=== PATIENT | female | born 1965 | race African-American/Black ===

== ENCOUNTER 2017-10-16 20:35 | Inpatient (IN) ==
[2017-10-16] MEDS ORDERED: SODIUM CHLORIDE 0.9% 1,000 ML IV STA ×2 (21:07→23:22)
[2017-10-16 21:52] LABS: Basophils % 0.2 % (0.0-0.8); Hemoglobin 9.1 GM/DL (12.0-16.0); Immature Granulocytes % 0.6 %; Lymphocytes # 0.7 10*3/uL (1.4-4.0); Lymphocytes % 4.3 % (21.3-54.2); Mean Corpuscular HGB Conc 32.5 GM/DL (32-36); Mean Corpuscular Hemoglobin 30 PG (27-34); Mean Corpuscular Volume 92.7 FL (87-102); Mean Platelet Volume 9.4 FL (9.6-12.0); Monocytes # 0.9 10*3/uL (0.11-0.8); Monocytes % 5.6 % (1.7-12.7); Neutrophils # 14.9 10*3/uL (1.4-7.4); Neutrophils % 89.3 % (38.7-73.9); Platelet Count 193 T/CUMM (130-400); Red Blood Count 3.02 MC/CUMM (3.8-5.5); Red Cell Distribution Width 17.1 % (9.3-17.3); White Blood Count 16.7 T/CUMM (4-12)
[2017-10-16 22:13] LABS: Ammonia 23 UMOL/L (11-32)
[2017-10-16 22:29] LABS: Alanine Aminotransferase 42 U/L (13-56); Albumin 2.3 G/DL (3.4-5.0); Alkaline Phosphatase 65 U/L (45-117); Aspartate Amino Transferase 58 U/L (0-37); Blood Urea Nitrogen 28 MG/DL (7-18); CKMB % 1.1 %; Calcium 8.9 MG/DL (8.5-10.1); Glucose 248 MG/DL (74-106); Osmolality,Calculated 286.8 MOS/KG (273-304); Potassium 3.6 MMOL/L (3.5-5.1); Sodium 137 MMOL/L (136-145); Total Protein 7.9 G/DL (6.4-8.3); Troponin I < 0.015 NG/ML (0.00-0.045)
[2017-10-16 22:45] LABS: INR 1.1; Partial Thromboplastin Time 31.5 SECS (0-40)
[2017-10-16 22:47] LABS: Apearance,Urine Slightly Hazy (Clear); Bacteria,Urine Occasional /HPF (Few); Bilirubin,Urine Negative (Negative); Blood, Urine Large mg/dL (Negative); Glucose,Urine (UA) Negative (Negative); Ketones,Urine Negative (Negative); Mucus,Urine Occasional /LPF (Occasional); Nitrite,Urine Negative (Negative); Protein,Urine 100 MG/DL; RBC,Urine 17 /HPF (0-4); Squamous Epithelial Cell,Urine Occasional /HPF (0-10); Urine Color Yellow (Yellow); Urine Specific Gravity 1.014 (1.001-1.035); Urine Urobilinogen < 2.0 EU/DL (0.2-1.0); WBC,Urine 38 /HPF (0-6)
[2017-10-16 22:53] LABS: Barbiturates Screen,Urine Negative (Negative); Benzodiazepines Screen,Urine Negative (Negative); Cannabinoid Screen,Urine Negative (Negative); Opiate Screen,Urine Negative (Negative); Phencyclidine Screen,Urine Negative (Negative)
[2017-10-16] MEDS ORDERED: LEVOFLOXACIN INJ 750 MG in PREMIX 1 EACH IV STA (23:04)
[2017-10-16] MEDS ORDERED: GLUCAGON 1 MG VIAL IM PRN (23:45)
[2017-10-16] MEDS ORDERED: DEXTROSE 50% 25 GM/50 ML VIAL IV PRN (23:45)
[2017-10-16] MEDS ORDERED: ONDANSETRON 4 MG/2 ML VIAL IV PRN (23:45)
[2017-10-16] MEDS ORDERED: cefTRIAXone 500 MG in SYRINGE 1 EACH IV SCH (23:45)
[2017-10-16] MEDS ORDERED: ASPIRIN EC 81 MG TABLET PO PRN (23:50)
[2017-10-17] MEDS: SODIUM CHLORIDE 0.9% 1,000 ML IV SCH ×2 (01:29→11:31)
[2017-10-17] MEDS: traMADol 50 MG TABLET PO PRN (02:30)
[2017-10-17] MEDS: HEPARIN 5,000 UNIT/1 ML VIAL SUBCUT SCH ×3 (02:31→17:48)
[2017-10-17 07:22] LABS: Calcium 8.6 MG/DL (8.5-10.1); Osmolality,Calculated 278.7 MOS/KG (273-304); Potassium 3.7 MMOL/L (3.5-5.1); Thyroid Stimulating Hormone 0.55 uIU/ml (0.358-3.74); VLDL CHOLESTEROL 17.4 MG/DL
[2017-10-17] MEDS: INSULIN LISPRO 100 UNIT/ML SUBCUT SCH ×4 (07:37→20:40)
[2017-10-17 08:16] LABS: Basophils % 0.2 % (0.0-0.8); Hematocrit 22.7 VOL% (35.7-47.0); Immature Granulocytes % 0.5 %; Immature Granulocytes Absolute 0.06 #; Lymphocytes # 0.7 10*3/uL (1.4-4.0); Lymphocytes % 5.4 % (21.3-54.2); Mean Corpuscular Hemoglobin 30 PG (27-34); Mean Corpuscular Volume 91.2 FL (87-102); Mean Platelet Volume 8.9 FL (9.6-12.0); Monocytes # 0.8 10*3/uL (0.11-0.8); Monocytes % 6.7 % (1.7-12.7); Neutrophils # 10.6 10*3/uL (1.4-7.4); Neutrophils % 87.2 % (38.7-73.9); Platelet Count 174 T/CUMM (130-400); Red Blood Count 2.49 MC/CUMM (3.8-5.5); Red Cell Distribution Width 17.2 % (9.3-17.3); White Blood Count 12.2 T/CUMM (4-12)
[2017-10-17 08:18] LABS: Hemoglobin 7.5 GM/DL (12.0-16.0)
[2017-10-17] MEDS ORDERED: cefTRIAXone 500 MG in SYRINGE 1 EACH IV ONE (09:30)
[2017-10-17] MEDS ORDERED: MAGNESIUM SULF RIDER 4 GM in PREMIX 1 EACH IV ONE (09:30)
[2017-10-17] MEDS: PANTOPRAZOLE 40 MG TABLET PO SCH (10:01)
[2017-10-17] MEDS: CHOLECALCIFEROL 5,000 UNIT TABLET PO SCH (10:01)
[2017-10-17] MEDS: MEGESTROL 40 MG TABLET PO SCH ×2 (10:01→20:42)
[2017-10-17] MEDS: ASCORBIC ACID 500 MG TABLET PO SCH (10:01)
[2017-10-17] MEDS: oxyCODONE/ACETAMINOPHEN 5-325 MG TABLET PO PRN (10:06)
[2017-10-17] MEDS ORDERED: SODIUM CHLORIDE 0.9% 1,000 ML IV PRN (12:17)
[2017-10-17] MEDS: ACETAMINOPHEN 500 MG TABLET PO PRN (16:19)
[2017-10-17] MEDS ORDERED: IBUPROFEN 400 MG TABLET PO PRN (16:58)
[2017-10-17] MEDS: IBUPROFEN 400 MG TABLET PO PRN (17:47)
[2017-10-17] MEDS ORDERED: ALPRAZolam 0.25 MG TABLET PO PRN (21:00)
[2017-10-18] MEDS: SODIUM CHLORIDE 0.9% 1,000 ML IV SCH ×2 (01:15→09:16)
[2017-10-18] MEDS: HEPARIN 5,000 UNIT/1 ML VIAL SUBCUT SCH ×3 (01:19→16:34)
[2017-10-18] MEDS: ACETAMINOPHEN 500 MG TABLET PO PRN ×2 (03:42→14:12)
[2017-10-18 05:25] LABS: Basophils % 0.2 % (0.0-0.8); Eosinophils % 0.1 % (0.00-10.9); Hematocrit 25.8 VOL% (35.7-47.0); Hemoglobin 8.4 GM/DL (12.0-16.0); Immature Granulocytes % 0.5 %; Immature Granulocytes Absolute 0.06 #; Lymphocytes # 0.9 10*3/uL (1.4-4.0); Lymphocytes % 7.3 % (21.3-54.2); Mean Corpuscular HGB Conc 32.6 GM/DL (32-36); Mean Corpuscular Hemoglobin 30 PG (27-34); Mean Corpuscular Volume 92.1 FL (87-102); Mean Platelet Volume 9.6 FL (9.6-12.0); Monocytes # 0.9 10*3/uL (0.11-0.8); Monocytes % 7.3 % (1.7-12.7); Neutrophils # 10.4 10*3/uL (1.4-7.4); Neutrophils % 84.6 % (38.7-73.9); Platelet Count 172 T/CUMM (130-400); Red Cell Distribution Width 16.2 % (9.3-17.3); White Blood Count 12.3 T/CUMM (4-12)
[2017-10-18 06:10] LABS: Bilirubin,Total 0.6 MG/DL (0.2-1.0); Calcium 8.1 MG/DL (8.5-10.1); Osmolality,Calculated 280.4 MOS/KG (273-304); Potassium 3.3 MMOL/L (3.5-5.1)
[2017-10-18] MEDS ORDERED: MAGNESIUM SULF RIDER 2 GM in PREMIX 1 EACH IV PRN (08:26)
[2017-10-18] MEDS ORDERED: MAGNESIUM SULF RIDER 4 GM in PREMIX 1 EACH IV PRN (08:26)
[2017-10-18] MEDS ORDERED: MAGNESIUM CITRATE 300 ML BOTTLE PO ONE (09:00)
[2017-10-18] MEDS: cefTRIAXone 1,000 MG in SYRINGE 1 EACH IV SCH (09:02)
[2017-10-18] MEDS: PANTOPRAZOLE 40 MG TABLET PO SCH (09:04)
[2017-10-18] MEDS: MEGESTROL 40 MG TABLET PO SCH ×2 (09:04→20:37)
[2017-10-18] MEDS: MULTIVITAMIN (CENTRUM) TABLET PO SCH (09:04)
[2017-10-18] MEDS: POTASSIUM CHLORIDE 20 MEQ TABLET PO PRN ×3 (09:04→14:14)
[2017-10-18] MEDS: POLYETHYLENE GLYCOL POWDER 17 GM PACK PO SCH (09:05)
[2017-10-18] MEDS: CHOLECALCIFEROL 5,000 UNIT TABLET PO SCH (09:05)
[2017-10-18] MEDS: ASCORBIC ACID 500 MG TABLET PO SCH (09:05)
[2017-10-18] MEDS: INSULIN LISPRO 100 UNIT/ML SUBCUT SCH ×4 (09:05→20:40)
[2017-10-18] MEDS: DOCUSATE SODIUM 100 MG CAPSULE PO SCH ×2 (09:05→20:37)
[2017-10-18] MEDS: CLOTRIMAZOLE 1% CREAM 15 GM TUBE TOP SCH ×2 (11:33→20:40)
[2017-10-18] MEDS: IBUPROFEN 400 MG TABLET PO PRN (15:25)
[2017-10-18] MEDS: traMADol 50 MG TABLET PO PRN (18:06)
[2017-10-18 18:54] LABS: Hematocrit 26.3 VOL% (35.7-47.0); Hemoglobin 8.4 GM/DL (12.0-16.0)
[2017-10-19] MEDS: SODIUM CHLORIDE 0.9% 1,000 ML IV SCH ×2 (00:57→00:58)
[2017-10-19] MEDS: oxyCODONE/ACETAMINOPHEN 5-325 MG TABLET PO PRN ×2 (01:02→10:48)
[2017-10-19 05:19] LABS: Basophils % 0.2 % (0.0-0.8); Eosinophils % 0.3 % (0.00-10.9); Hemoglobin 8.5 GM/DL (12.0-16.0); Immature Granulocytes % 1.7 %; Lymphocytes % 8.3 % (21.3-54.2); Mean Corpuscular HGB Conc 32.7 GM/DL (32-36); Mean Corpuscular Hemoglobin 30 PG (27-34); Mean Corpuscular Volume 91.5 FL (87-102); Mean Platelet Volume 9.7 FL (9.6-12.0); Monocytes # 0.9 10*3/uL (0.11-0.8); Monocytes % 7.8 % (1.7-12.7); NRBC # 0.02 10*3/uL; Neutrophils # 9.5 10*3/uL (1.4-7.4); Neutrophils % 81.7 % (38.7-73.9); Platelet Count 192 T/CUMM (130-400); Red Blood Count 2.84 MC/CUMM (3.8-5.5); Red Cell Distribution Width 16.5 % (9.3-17.3); White Blood Count 11.6 T/CUMM (4-12)
[2017-10-19 05:53] LABS: Calcium 8.5 MG/DL (8.5-10.1); Osmolality,Calculated 276.5 MOS/KG (273-304); Potassium 3.9 MMOL/L (3.5-5.1)
[2017-10-19] MEDS: traMADol 50 MG TABLET PO PRN (05:58)
[2017-10-19] MEDS: ASCORBIC ACID 500 MG TABLET PO SCH (10:46)
[2017-10-19] MEDS: MEGESTROL 40 MG TABLET PO SCH (10:46)
[2017-10-19] MEDS: CHOLECALCIFEROL 5,000 UNIT TABLET PO SCH (10:46)
[2017-10-19] MEDS: cefTRIAXone 1,000 MG in SYRINGE 1 EACH IV SCH (10:46)
[2017-10-19] MEDS: PANTOPRAZOLE 40 MG TABLET PO SCH (10:46)
[2017-10-19] MEDS: CLOTRIMAZOLE 1% CREAM 15 GM TUBE TOP SCH (10:47)
[2017-10-19] MEDS: DOCUSATE SODIUM 100 MG CAPSULE PO SCH (10:47)
[2017-10-19] MEDS: MULTIVITAMIN (CENTRUM) TABLET PO SCH (10:47)
[2017-10-19] MEDS: INSULIN LISPRO 100 UNIT/ML SUBCUT SCH (10:48)
[2017-10-19] MEDS: POLYETHYLENE GLYCOL POWDER 17 GM PACK PO SCH (10:57)
[2017-10-19 11:56] VITALS: BP 120/68
[2017-10-19] MEDS: HEPARIN 5,000 UNIT/1 ML VIAL SUBCUT SCH (12:20)
[2017-10-20] MEDS ORDERED: FLUCONAZOLE 200 MG TABLET PO SCH (09:00)
[2017-10-20] MEDS ORDERED: cephALEXin 500 MG CAPSULE PO SCH (09:00)
== END 2017-10-19 12:57 | disposition home or self-care (01) | DRG 558 ==
LOC: N.ED 20:35 → SUATTDRO 23:45 → N.EDINP 23:45 → N.2E 10-17 00:30
PROVIDERS: ADMIT Internal Medicine; ATTEND Internal Medicine

== ENCOUNTER 2017-11-28 14:35 | Inpatient (IN) ==
[2017-11-28] MEDS ORDERED: SODIUM CHLORIDE 0.9% 1,000 ML IV STA ×2 (14:59→17:17)
[2017-11-28] MEDS ORDERED: MEROPENEM 1,000 MG in SODIUM CHLORIDE 0.9% 100 ML IV STA (16:28)
[2017-11-28 16:40] LABS: Basophils % 0.2 % (0.0-0.8); Hematocrit 26.3 VOL% (35.7-47.0); Hemoglobin 8.2 GM/DL (12.0-16.0); Immature Granulocytes % 1.1 %; Immature Granulocytes Absolute 0.25 #; Lymphocytes # 1.5 10*3/uL (1.4-4.0); Lymphocytes % 6.6 % (21.3-54.2); Mean Corpuscular HGB Conc 31.2 GM/DL (32-36); Mean Corpuscular Hemoglobin 30 PG (27-34); Monocytes # 1.4 10*3/uL (0.11-0.8); Monocytes % 6.2 % (1.7-12.7); Neutrophils # 19.1 10*3/uL (1.4-7.4); Neutrophils % 85.9 % (38.7-73.9); Platelet Count 361 T/CUMM (130-400); Red Blood Count 2.74 MC/CUMM (3.8-5.5); Red Cell Distribution Width 14.9 % (9.3-17.3); White Blood Count 22.3 T/CUMM (4-12)
[2017-11-28 16:49] LABS: INR 1.1; PT Patient Result 11.8 SECS; Partial Thromboplastin Time 33.6 SECS (0-40)
[2017-11-28 16:58] LABS: Amorphous Crystals,Urine Occasional /HPF (Few); Apearance,Urine CLOUDY (Clear); Bilirubin,Urine Negative (Negative); Blood, Urine Moderate mg/dL (Negative); Glucose,Urine (UA) Negative (Negative); Ketones,Urine Negative (Negative); Nitrite,Urine Negative (Negative); Protein,Urine 100 MG/DL; RBC,Urine 74 /HPF (0-4); Urine Color Amber (Yellow); Urine Specific Gravity 1.009 (1.001-1.035); Urine Urobilinogen < 2.0 EU/DL (0.2-1.0); WBC,Urine 103 /HPF (0-6)
[2017-11-28 16:59] LABS: Alanine Aminotransferase 40 U/L (13-56); Albumin 1.9 G/DL (3.4-5.0); Alkaline Phosphatase 88 U/L (45-117); Aspartate Amino Transferase 28 U/L (0-37); Bilirubin,Total < 0.39 MG/DL (0.2-1.0); Blood Urea Nitrogen 12 MG/DL (7-18); Calcium 8.6 MG/DL (8.5-10.1); Glucose 130 MG/DL (74-106); Lactic Acid 2.2 MMOL/L (0.4-2.0); Osmolality,Calculated 276.7 MOS/KG (273-304); Potassium 4.1 MMOL/L (3.5-5.1); Sodium 138 MMOL/L (136-145); Total Protein 8.2 G/DL (6.4-8.3)
[2017-11-28 17:05] LABS: Hypochromasia 1+; Lymphocytes 7 % (20-55); Platelet Estimate Adequate; Segmented Neutrophils 88 % (50-85); Total Cells Counted 100
[2017-11-28] MEDS ORDERED: SODIUM CHLORIDE 0.9% 1,000 ML IV ONE (18:02)
[2017-11-28] MEDS ORDERED: GLUCAGON 1 MG VIAL IM PRN (18:04)
[2017-11-28] MEDS ORDERED: ASPIRIN EC 81 MG TABLET PO PRN (18:04)
[2017-11-28] MEDS ORDERED: DEXTROSE 50% 25 GM/50 ML VIAL IV PRN (18:04)
[2017-11-28] MEDS ORDERED: ACETAMINOPHEN 325 MG TABLET PO ONE (19:31)
[2017-11-28] MEDS ORDERED: ACETAMINOPHEN 325 MG TABLET ONE (19:32)
[2017-11-28] MEDS: PIPERACILLIN/TAZOBACTAM 3,375 MG in SODIUM CHLORIDE 0.9% 100 ML IV SCH (22:41)
[2017-11-28] MEDS: SODIUM CHLORIDE 0.9% 1,000 ML IV SCH (22:41)
[2017-11-28] MEDS: oxyCODONE/ACETAMINOPHEN 5-325 MG TABLET PO PRN (22:42)
[2017-11-28] MEDS: ALPRAZolam 0.25 MG TABLET PO SCH (22:42)
[2017-11-28] MEDS: MEGESTROL 40 MG TABLET PO SCH (22:42)
[2017-11-28] MEDS: HEPARIN 5,000 UNIT/1 ML VIAL SUBCUT SCH (22:44)
[2017-11-28] MEDS ORDERED: INFLUENZA VIRUS VACCINE 0.5 ML SYRINGE IM ONE (23:35)
[2017-11-29] MEDS: ACETAMINOPHEN 500 MG TABLET PO SCH ×4 (00:18→20:46)
[2017-11-29] MEDS ORDERED: VANCOMYCIN INJ 1,500 MG in SODIUM CHLORIDE 0.9% 250 ML IV SCH (01:00)
[2017-11-29 05:04] LABS: Basophils # 0.1 10*3/uL (0.0-0.2); Basophils % 0.2 % (0.0-0.8); Hemoglobin 7.7 GM/DL (12.0-16.0); Immature Granulocytes % 1.1 %; Immature Granulocytes Absolute 0.25 #; Lymphocytes # 1.4 10*3/uL (1.4-4.0); Lymphocytes % 6.1 % (21.3-54.2); Mean Corpuscular HGB Conc 30.8 GM/DL (32-36); Mean Corpuscular Hemoglobin 30 PG (27-34); Mean Corpuscular Volume 96.9 FL (87-102); Mean Platelet Volume 9.3 FL (9.6-12.0); Monocytes # 1.1 10*3/uL (0.11-0.8); Monocytes % 4.7 % (1.7-12.7); Neutrophils # 19.7 10*3/uL (1.4-7.4); Neutrophils % 87.9 % (38.7-73.9); Platelet Count 353 T/CUMM (130-400); Red Blood Count 2.58 MC/CUMM (3.8-5.5); Red Cell Distribution Width 15.1 % (9.3-17.3); White Blood Count 22.4 T/CUMM (4-12)
[2017-11-29 05:32] LABS: Band Neutrophils 1 % (0-10); Hypochromasia 1+; Lymphocytes 8 % (20-55); Segmented Neutrophils 87 % (50-85); Total Cells Counted 100
[2017-11-29 05:33] LABS: Macrocytosis Slight
[2017-11-29 05:39] LABS: Calcium 8.5 MG/DL (8.5-10.1); Osmolality,Calculated 277.3 MOS/KG (273-304); Potassium 3.5 MMOL/L (3.5-5.1)
[2017-11-29] MEDS: HEPARIN 5,000 UNIT/1 ML VIAL SUBCUT SCH ×3 (05:41→20:46)
[2017-11-29] MEDS: oxyCODONE/ACETAMINOPHEN 5-325 MG TABLET PO PRN ×2 (05:41→12:57)
[2017-11-29] MEDS ORDERED: diphenhydrAMINE 50 MG/1 ML VIAL IV PRN ×2 (07:10→15:33)
[2017-11-29] MEDS ORDERED: FUROSEMIDE 20 MG/2 ML VIAL IV PRN (07:10)
[2017-11-29] MEDS ORDERED: ACETAMINOPHEN 325 MG TABLET PO PRN ×2 (07:10→15:33)
[2017-11-29] MEDS ORDERED: SODIUM CHLORIDE 0.9% 1,000 ML IV PRN (07:10)
[2017-11-29] MEDS: glyBURIDE 5 MG TABLET PO SCH ×3 (08:05→18:56)
[2017-11-29] MEDS: PANTOPRAZOLE 40 MG TABLET PO SCH (09:29)
[2017-11-29] MEDS: MULTIVITAMIN (CENTRUM) TABLET PO SCH (09:29)
[2017-11-29] MEDS: MEGESTROL 40 MG TABLET PO SCH ×2 (09:30→20:46)
[2017-11-29] MEDS: CHOLECALCIFEROL 5,000 UNIT TABLET PO SCH (09:30)
[2017-11-29] MEDS: ASCORBIC ACID 500 MG TABLET PO SCH (09:31)
[2017-11-29] MEDS: PIPERACILLIN/TAZOBACTAM 3,375 MG in SODIUM CHLORIDE 0.9% 100 ML IV SCH ×3 (09:33→20:52)
[2017-11-29] MEDS: SODIUM CHLORIDE 0.9% 1,000 ML IV SCH ×2 (14:38→19:33)
[2017-11-29] MEDS: VANCOMYCIN INJ 1,500 MG in SODIUM CHLORIDE 0.9% 500 ML IV SCH (14:53)
[2017-11-29] MEDS: ALPRAZolam 0.25 MG TABLET PO SCH (20:46)
[2017-11-30] MEDS: ACETAMINOPHEN 500 MG TABLET PO SCH ×4 (00:10→17:57)
[2017-11-30] MEDS: SODIUM CHLORIDE 0.9% 1,000 ML IV SCH ×3 (02:10→20:57)
[2017-11-30] MEDS: VANCOMYCIN INJ 1,500 MG in SODIUM CHLORIDE 0.9% 500 ML IV SCH ×2 (04:13→22:22)
[2017-11-30 05:13] LABS: Basophils % 0.2 % (0.0-0.8); Eosinophils % 0.2 % (0.00-10.9); Hematocrit 26.9 VOL% (35.7-47.0); Hemoglobin 8.5 GM/DL (12.0-16.0); Immature Granulocytes % 1.1 %; Immature Granulocytes Absolute 0.21 #; Lymphocytes # 1.3 10*3/uL (1.4-4.0); Lymphocytes % 6.9 % (21.3-54.2); Mean Corpuscular HGB Conc 31.6 GM/DL (32-36); Mean Corpuscular Hemoglobin 30 PG (27-34); Mean Corpuscular Volume 94.1 FL (87-102); Mean Platelet Volume 9.2 FL (9.6-12.0); Monocytes # 0.8 10*3/uL (0.11-0.8); Neutrophils # 16.8 10*3/uL (1.4-7.4); Neutrophils % 87.6 % (38.7-73.9); Platelet Count 289 T/CUMM (130-400); Red Blood Count 2.86 MC/CUMM (3.8-5.5); Red Cell Distribution Width 15.9 % (9.3-17.3); White Blood Count 19.2 T/CUMM (4-12)
[2017-11-30 05:33] LABS: Albumin 1.5 G/DL (3.4-5.0); Bilirubin,Total 0.4 MG/DL (0.2-1.0); Calcium 8.4 MG/DL (8.5-10.1); Osmolality,Calculated 275.5 MOS/KG (273-304); Potassium 3.5 MMOL/L (3.5-5.1); Total Protein 6.9 G/DL (6.4-8.3)
[2017-11-30 05:37] LABS: Eosinophils 1 % (0-10); Lymphocytes 7 % (20-55); Segmented Neutrophils 90 % (50-85); Total Cells Counted 100
[2017-11-30 05:38] LABS: Hypochromasia 1+; Platelet Estimate Normal
[2017-11-30 05:39] LABS: Polychromasia Few
[2017-11-30] MEDS: HEPARIN 5,000 UNIT/1 ML VIAL SUBCUT SCH ×3 (05:50→20:59)
[2017-11-30] MEDS: PIPERACILLIN/TAZOBACTAM 3,375 MG in SODIUM CHLORIDE 0.9% 100 ML IV SCH ×2 (09:43→17:58)
[2017-11-30] MEDS ORDERED: LOPERAMIDE 2 MG CAPSULE PO ONE (10:11)
[2017-11-30] MEDS: CHOLECALCIFEROL 5,000 UNIT TABLET PO SCH (10:30)
[2017-11-30] MEDS: glyBURIDE 5 MG TABLET PO SCH ×3 (10:30→16:11)
[2017-11-30] MEDS: PANTOPRAZOLE 40 MG TABLET PO SCH (10:31)
[2017-11-30] MEDS: MULTIVITAMIN (CENTRUM) TABLET PO SCH (10:31)
[2017-11-30] MEDS: ASCORBIC ACID 500 MG TABLET PO SCH (10:31)
[2017-11-30] MEDS: MEGESTROL 40 MG TABLET PO SCH ×3 (10:36→20:57)
[2017-11-30] MEDS: traMADol 50 MG TABLET PO PRN (13:33)
[2017-11-30] MEDS: CYCLOBENZAPRINE 10 MG TABLET PO SCH ×2 (16:11→20:55)
[2017-11-30] MEDS ORDERED: METHOCARBAMOL 500 MG TABLET PO SCH (17:00)
[2017-11-30] MEDS: ALPRAZolam 0.25 MG TABLET PO SCH (20:56)
[2017-12-01] MEDS: ACETAMINOPHEN 500 MG TABLET PO SCH ×4 (00:56→19:14)
[2017-12-01] MEDS: PIPERACILLIN/TAZOBACTAM 3,375 MG in SODIUM CHLORIDE 0.9% 100 ML IV SCH ×3 (02:33→20:23)
[2017-12-01] MEDS: HEPARIN 5,000 UNIT/1 ML VIAL SUBCUT SCH ×3 (05:01→20:24)
[2017-12-01 05:42] LABS: Basophils % 0.1 % (0.0-0.8); Hematocrit 26.9 VOL% (35.7-47.0); Hemoglobin 8.3 GM/DL (12.0-16.0); Immature Granulocytes % 1.1 %; Immature Granulocytes Absolute 0.23 #; Lymphocytes # 1.3 10*3/uL (1.4-4.0); Lymphocytes % 6.3 % (21.3-54.2); Mean Corpuscular HGB Conc 30.9 GM/DL (32-36); Mean Corpuscular Hemoglobin 29 PG (27-34); Mean Corpuscular Volume 95.4 FL (87-102); Mean Platelet Volume 9.3 FL (9.6-12.0); Monocytes # 0.9 10*3/uL (0.11-0.8); Monocytes % 4.5 % (1.7-12.7); Neutrophils # 17.9 10*3/uL (1.4-7.4); Platelet Count 286 T/CUMM (130-400); Red Blood Count 2.82 MC/CUMM (3.8-5.5); Red Cell Distribution Width 15.9 % (9.3-17.3); White Blood Count 20.4 T/CUMM (4-12)
[2017-12-01 06:07] LABS: Albumin 1.4 G/DL (3.4-5.0); Bilirubin,Total 0.4 MG/DL (0.2-1.0); Calcium 8.3 MG/DL (8.5-10.1); Osmolality,Calculated 276.1 MOS/KG (273-304); Potassium 3.6 MMOL/L (3.5-5.1); Total Protein 6.9 G/DL (6.4-8.3)
[2017-12-01 06:12] LABS: Lymphocytes 4 % (20-55); Segmented Neutrophils 94 % (50-85); Total Cells Counted 100
[2017-12-01 06:13] LABS: Platelet Estimate Normal
[2017-12-01] MEDS: glyBURIDE 5 MG TABLET PO SCH ×3 (08:07→16:26)
[2017-12-01] MEDS ORDERED: MAGNESIUM SULF RIDER 4 GM in PREMIX 1 EACH IV PRN (08:48)
[2017-12-01] MEDS ORDERED: MAGNESIUM SULF RIDER 2 GM in PREMIX 1 EACH IV PRN (08:48)
[2017-12-01] MEDS: CYCLOBENZAPRINE 10 MG TABLET PO SCH ×3 (09:43→20:01)
[2017-12-01] MEDS: OXYBUTYNIN XL 10 MG TABLET PO SCH (09:43)
[2017-12-01] MEDS: CHOLECALCIFEROL 5,000 UNIT TABLET PO SCH (09:43)
[2017-12-01] MEDS: MEGESTROL 40 MG TABLET PO SCH ×2 (09:43→20:02)
[2017-12-01] MEDS: MULTIVITAMIN (CENTRUM) TABLET PO SCH (09:43)
[2017-12-01] MEDS: PANTOPRAZOLE 40 MG TABLET PO SCH (09:43)
[2017-12-01] MEDS: ASCORBIC ACID 500 MG TABLET PO SCH (09:43)
[2017-12-01] MEDS: VANCOMYCIN INJ 1,500 MG in SODIUM CHLORIDE 0.9% 500 ML IV SCH (09:44)
[2017-12-01] MEDS: BACLOFEN 10 MG TABLET PO SCH ×4 (09:45→20:24)
[2017-12-01] MEDS: ALPRAZolam 0.25 MG TABLET PO SCH (20:24)
[2017-12-01] MEDS: oxyCODONE/ACETAMINOPHEN 5-325 MG TABLET PO PRN (23:18)
[2017-12-02] MEDS: VANCOMYCIN INJ 1,500 MG in SODIUM CHLORIDE 0.9% 500 ML IV SCH (00:17)
[2017-12-02] MEDS: ACETAMINOPHEN 500 MG TABLET PO SCH ×4 (00:28→17:23)
[2017-12-02] MEDS: PIPERACILLIN/TAZOBACTAM 3,375 MG in SODIUM CHLORIDE 0.9% 100 ML IV SCH ×2 (04:17→12:05)
[2017-12-02 05:13] LABS: Basophils % 0.2 % (0.0-0.8); Eosinophils # 0.1 10*3/uL (0.0-0.87); Eosinophils % 0.4 % (0.00-10.9); Hematocrit 27.1 VOL% (35.7-47.0); Hemoglobin 8.7 GM/DL (12.0-16.0); Immature Granulocytes % 0.8 %; Immature Granulocytes Absolute 0.16 #; Lymphocytes # 1.3 10*3/uL (1.4-4.0); Lymphocytes % 6.5 % (21.3-54.2); Mean Corpuscular HGB Conc 32.1 GM/DL (32-36); Mean Corpuscular Hemoglobin 31 PG (27-34); Mean Corpuscular Volume 95.4 FL (87-102); Mean Platelet Volume 9.5 FL (9.6-12.0); Monocytes # 0.8 10*3/uL (0.11-0.8); Monocytes % 4.1 % (1.7-12.7); Neutrophils # 17.5 10*3/uL (1.4-7.4); Platelet Count 310 T/CUMM (130-400); Red Blood Count 2.84 MC/CUMM (3.8-5.5); Red Cell Distribution Width 15.9 % (9.3-17.3); White Blood Count 19.9 T/CUMM (4-12)
[2017-12-02] MEDS: HEPARIN 5,000 UNIT/1 ML VIAL SUBCUT SCH ×3 (05:25→21:49)
[2017-12-02 05:35] LABS: Anisocytosis Slight; Band Neutrophils 2 % (0-10); Lymphocytes 5 % (20-55); Macrocytosis Slight; Platelet Estimate Normal; Polychromasia 1+; Segmented Neutrophils 90 % (50-85); Total Cells Counted 100
[2017-12-02 05:36] LABS: Albumin 1.5 G/DL (3.4-5.0); Bilirubin,Total 0.6 MG/DL (0.2-1.0); Calcium 8.2 MG/DL (8.5-10.1); Potassium 3.8 MMOL/L (3.5-5.1)
[2017-12-02] MEDS: glyBURIDE 5 MG TABLET PO SCH ×3 (08:10→16:29)
[2017-12-02] MEDS: ASCORBIC ACID 500 MG TABLET PO SCH (10:00)
[2017-12-02] MEDS: MULTIVITAMIN (CENTRUM) TABLET PO SCH (10:00)
[2017-12-02] MEDS: CHOLECALCIFEROL 5,000 UNIT TABLET PO SCH (10:00)
[2017-12-02] MEDS: CYCLOBENZAPRINE 10 MG TABLET PO SCH ×3 (10:00→21:49)
[2017-12-02] MEDS: PANTOPRAZOLE 40 MG TABLET PO SCH (10:00)
[2017-12-02] MEDS: OXYBUTYNIN XL 10 MG TABLET PO SCH (10:00)
[2017-12-02] MEDS: MEGESTROL 40 MG TABLET PO SCH ×2 (10:02→21:54)
[2017-12-02] MEDS: BACLOFEN 10 MG TABLET PO SCH ×3 (10:03→21:53)
[2017-12-02] MEDS: SODIUM CHLORIDE 0.9% 1,000 ML IV SCH ×3 (10:05→16:28)
[2017-12-02] MEDS: LOPERAMIDE 2 MG CAPSULE PO PRN ×3 (12:05→21:48)
[2017-12-02] MEDS: cefTRIAXone 1,000 MG in SYRINGE 1 EACH IV SCH (17:23)
[2017-12-02] MEDS: ALPRAZolam 0.25 MG TABLET PO SCH (21:49)
[2017-12-03] MEDS: ACETAMINOPHEN 500 MG TABLET PO SCH ×4 (00:40→17:39)
[2017-12-03] MEDS: LOPERAMIDE 2 MG CAPSULE PO PRN ×3 (00:42→07:00)
[2017-12-03] MEDS: HEPARIN 5,000 UNIT/1 ML VIAL SUBCUT SCH ×3 (05:52→20:49)
[2017-12-03 07:08] LABS: Basophils % 0.2 % (0.0-0.8); Eosinophils # 0.2 10*3/uL (0.0-0.87); Hematocrit 27.8 VOL% (35.7-47.0); Hemoglobin 8.5 GM/DL (12.0-16.0); Immature Granulocytes % 0.9 %; Immature Granulocytes Absolute 0.15 #; Lymphocytes # 1.2 10*3/uL (1.4-4.0); Mean Corpuscular HGB Conc 30.6 GM/DL (32-36); Mean Corpuscular Hemoglobin 29 PG (27-34); Mean Corpuscular Volume 95.9 FL (87-102); Mean Platelet Volume 9.1 FL (9.6-12.0); Monocytes # 0.7 10*3/uL (0.11-0.8); Monocytes % 4.3 % (1.7-12.7); Neutrophils # 14.5 10*3/uL (1.4-7.4); Neutrophils % 86.6 % (38.7-73.9); Platelet Count 295 T/CUMM (130-400); Red Cell Distribution Width 15.9 % (9.3-17.3); White Blood Count 16.8 T/CUMM (4-12)
[2017-12-03 07:35] LABS: Alanine Aminotransferase 32 U/L (13-56); Albumin 1.4 G/DL (3.4-5.0); Alkaline Phosphatase 94 U/L (45-117); Aspartate Amino Transferase 29 U/L (0-37); Bilirubin,Total < 0.39 MG/DL (0.2-1.0); Blood Urea Nitrogen 18 MG/DL (7-18); Calcium 8.9 MG/DL (8.5-10.1); Glucose 126 MG/DL (74-106); Osmolality,Calculated 289.8 MOS/KG (273-304); Potassium 3.8 MMOL/L (3.5-5.1); Sodium 144 MMOL/L (136-145); Total Protein 6.8 G/DL (6.4-8.3)
[2017-12-03] MEDS: MULTIVITAMIN (CENTRUM) TABLET PO SCH (09:12)
[2017-12-03] MEDS: OXYBUTYNIN XL 10 MG TABLET PO SCH (09:12)
[2017-12-03] MEDS: PANTOPRAZOLE 40 MG TABLET PO SCH (09:12)
[2017-12-03] MEDS: ASCORBIC ACID 500 MG TABLET PO SCH (09:13)
[2017-12-03] MEDS: CHOLECALCIFEROL 5,000 UNIT TABLET PO SCH (09:13)
[2017-12-03] MEDS: CYCLOBENZAPRINE 10 MG TABLET PO SCH ×3 (09:13→20:49)
[2017-12-03] MEDS: glyBURIDE 5 MG TABLET PO SCH ×2 (09:13→17:29)
[2017-12-03] MEDS: BACLOFEN 10 MG TABLET PO SCH ×3 (09:15→20:54)
[2017-12-03] MEDS: MEGESTROL 40 MG TABLET PO SCH ×2 (09:15→20:49)
[2017-12-03] MEDS: traMADol 50 MG TABLET PO PRN (14:49)
[2017-12-03] MEDS: cefTRIAXone 1,000 MG in SYRINGE 1 EACH IV SCH (17:29)
[2017-12-03] MEDS: ALPRAZolam 0.25 MG TABLET PO SCH (20:49)
[2017-12-04] MEDS: ACETAMINOPHEN 500 MG TABLET PO SCH ×3 (00:26→12:59)
[2017-12-04 05:43] LABS: Basophils % 0.3 % (0.0-0.8); Eosinophils # 0.2 10*3/uL (0.0-0.87); Eosinophils % 1.4 % (0.00-10.9); Hematocrit 27.8 VOL% (35.7-47.0); Hemoglobin 8.4 GM/DL (12.0-16.0); Immature Granulocytes % 0.9 %; Immature Granulocytes Absolute 0.12 #; Lymphocytes # 1.3 10*3/uL (1.4-4.0); Lymphocytes % 9.9 % (21.3-54.2); Mean Corpuscular HGB Conc 30.2 GM/DL (32-36); Mean Corpuscular Hemoglobin 29 PG (27-34); Mean Corpuscular Volume 95.9 FL (87-102); Mean Platelet Volume 9.5 FL (9.6-12.0); Monocytes # 0.6 10*3/uL (0.11-0.8); Monocytes % 4.6 % (1.7-12.7); Neutrophils # 11.1 10*3/uL (1.4-7.4); Neutrophils % 82.9 % (38.7-73.9); Platelet Count 330 T/CUMM (130-400); Red Cell Distribution Width 15.8 % (9.3-17.3); White Blood Count 13.4 T/CUMM (4-12)
[2017-12-04] MEDS: HEPARIN 5,000 UNIT/1 ML VIAL SUBCUT SCH ×2 (05:51→13:00)
[2017-12-04] MEDS: ASCORBIC ACID 500 MG TABLET PO SCH (09:46)
[2017-12-04] MEDS: MULTIVITAMIN (CENTRUM) TABLET PO SCH (09:46)
[2017-12-04] MEDS: glyBURIDE 5 MG TABLET PO SCH (09:46)
[2017-12-04] MEDS: MEGESTROL 40 MG TABLET PO SCH (09:47)
[2017-12-04] MEDS: CYCLOBENZAPRINE 10 MG TABLET PO SCH (09:48)
[2017-12-04] MEDS: PANTOPRAZOLE 40 MG TABLET PO SCH (09:49)
[2017-12-04] MEDS: CHOLECALCIFEROL 5,000 UNIT TABLET PO SCH (09:49)
[2017-12-04] MEDS: OXYBUTYNIN XL 10 MG TABLET PO SCH (09:49)
[2017-12-04] MEDS: BACLOFEN 10 MG TABLET PO SCH (09:50)
[2017-12-04 12:03] VITALS: BP 120/60
[2017-12-04] MEDS ORDERED: HEPARIN LOCK FLUSH 500 UNIT/5 ML SYRINGE IV ONE (12:39)
== END 2017-12-04 14:15 | DRG 690 ==
LOC: N.ED 14:35 → N.EDINP 19:08 → SUATTDRO 19:08 → N.4E 20:37
PROVIDERS: ATTEND Internal Medicine

== ENCOUNTER 2018-02-23 11:11 | Inpatient (IN) ==
[2018-02-23] MEDS ORDERED: SODIUM CHLORIDE 0.9% 1,000 ML IV STA (11:48)
[2018-02-23 12:42] LABS: Basophils # 0.1 10*3/uL (0.0-0.2); Basophils % 0.6 % (0.0-0.8); Eosinophils % 0.1 % (0.00-10.9); Hematocrit 25.3 VOL% (35.7-47.0); Hemoglobin 7.9 GM/DL (12.0-16.0); Immature Granulocytes % 7.2 %; Immature Granulocytes Absolute 1.77 #; Lymphocytes # 1.3 10*3/uL (1.4-4.0); Lymphocytes % 5.3 % (21.3-54.2); Mean Corpuscular HGB Conc 31.2 GM/DL (32-36); Mean Corpuscular Hemoglobin 30 PG (27-34); Mean Corpuscular Volume 94.8 FL (87-102); Mean Platelet Volume 10.3 FL (9.6-12.0); Monocytes # 1.7 10*3/uL (0.11-0.8); Monocytes % 6.9 % (1.7-12.7); NRBC # 0.02 10*3/uL; Neutrophils # 19.6 10*3/uL (1.4-7.4); Neutrophils % 79.9 % (38.7-73.9); Platelet Count 512 T/CUMM (130-400); Red Blood Count 2.67 MC/CUMM (3.8-5.5); Red Cell Distribution Width 16.7 % (9.3-17.3); White Blood Count 24.6 T/CUMM (4-12)
[2018-02-23 13:01] LABS: Band Neutrophils 13 % (0-10); Lymphocytes 4 % (20-55); Segmented Neutrophils 73 % (50-85); Total Cells Counted 100
[2018-02-23 13:02] LABS: Hypochromasia 1+; Macrocytosis Slight; Platelet Estimate Increased
[2018-02-23 13:20] LABS: Alanine Aminotransferase 20 U/L (13-56); Albumin 1.7 G/DL (3.4-5.0); Alkaline Phosphatase 90 U/L (45-117); Aspartate Amino Transferase 14 U/L (0-37); Bilirubin,Total < 0.39 MG/DL (0.2-1.0); Blood Urea Nitrogen 44 MG/DL (7-18); Calcium 8.9 MG/DL (8.5-10.1); Glucose 270 MG/DL (74-106); Osmolality,Calculated 282.7 MOS/KG (273-304); Potassium 4.3 MMOL/L (3.5-5.1); Sodium 131 MMOL/L (136-145); Total Protein 7.8 G/DL (6.4-8.3)
[2018-02-23] MEDS ORDERED: ONDANSETRON 4 MG/2 ML VIAL IV PRN (14:17)
[2018-02-23] MEDS ORDERED: ALBUTEROL 2.5 MG/3 ML NEB RESP TX PRN (14:17)
[2018-02-23] MEDS ORDERED: DEXTROSE 50% 25 GM/50 ML VIAL IV PRN (14:26)
[2018-02-23] MEDS ORDERED: GLUCAGON 1 MG VIAL IM PRN (14:26)
[2018-02-23] MEDS: ENOXAPARIN 30 MG/0.3 ML SYRINGE SUBCUT SCH (15:16)
[2018-02-23 15:18] LABS: ABG Base Excess -9.2 MMOL/L (-2.5-2.5); ABG HCO3 16.9 MMOL/L (20-26); ABG Oxygen Saturation 97.5 % (95-100); ABG PCO2 26.5 MM HG (35-48); ABG PH 7.366 (7.35-7.45); ABG TCO2 14.3 MMOL/L (23-27)
[2018-02-23] MEDS: SODIUM CHLORIDE 0.9% 1,000 ML IV SCH ×2 (15:18→23:45)
[2018-02-23] MEDS ORDERED: VANCOMYCIN INJ 1,250 MG in SODIUM CHLORIDE 0.9% 250 ML IV PRN (16:30)
[2018-02-23] MEDS: MEROPENEM 1,000 MG in SODIUM CHLORIDE 0.9% 100 ML IV SCH (17:46)
[2018-02-23] MEDS: INSULIN LISPRO 100 UNIT/ML SUBCUT SCH ×2 (17:46→23:43)
[2018-02-23] MEDS ORDERED: VANCOMYCIN INJ 1,750 MG in SODIUM CHLORIDE 0.9% 500 ML IV ONE (18:00)
[2018-02-24 03:55] LABS: Basophils # 0.1 10*3/uL (0.0-0.2); Basophils % 0.4 % (0.0-0.8); Eosinophils % 0.1 % (0.00-10.9); Hematocrit 22.8 VOL% (35.7-47.0); Immature Granulocytes % 5.5 %; Immature Granulocytes Absolute 1.37 #; Lymphocytes # 1.6 10*3/uL (1.4-4.0); Lymphocytes % 6.2 % (21.3-54.2); Mean Corpuscular HGB Conc 30.7 GM/DL (32-36); Mean Corpuscular Hemoglobin 29 PG (27-34); Mean Corpuscular Volume 94.6 FL (87-102); Monocytes # 1.6 10*3/uL (0.11-0.8); Monocytes % 6.2 % (1.7-12.7); NRBC # 0.03 10*3/uL; Neutrophils # 20.4 10*3/uL (1.4-7.4); Neutrophils % 81.6 % (38.7-73.9); Platelet Count 465 T/CUMM (130-400); Red Blood Count 2.41 MC/CUMM (3.8-5.5); Red Cell Distribution Width 17.2 % (9.3-17.3)
[2018-02-24 04:17] LABS: Albumin 1.4 G/DL (3.4-5.0); Bilirubin,Total 0.6 MG/DL (0.2-1.0); Calcium 8.3 MG/DL (8.5-10.1); Osmolality,Calculated 282.7 MOS/KG (273-304); Total Protein 6.5 G/DL (6.4-8.3)
[2018-02-24 05:02] LABS: Band Neutrophils 3 % (0-10); Lymphocytes 9 % (20-55); Segmented Neutrophils 81 % (50-85); Total Cells Counted 100
[2018-02-24 05:03] LABS: Hypochromasia 1+; Platelet Estimate Increased; Polychromasia Few
[2018-02-24] MEDS ORDERED: MAGNESIUM SULF RIDER 4 GM in PREMIX 1 EACH IV PRN (05:40)
[2018-02-24] MEDS: MEROPENEM 1,000 MG in SODIUM CHLORIDE 0.9% 100 ML IV SCH ×2 (05:55→17:48)
[2018-02-24] MEDS: MAGNESIUM SULF RIDER 2 GM in PREMIX 1 EACH IV PRN ×2 (06:30→09:05)
[2018-02-24] MEDS: INSULIN LISPRO 100 UNIT/ML SUBCUT SCH ×3 (06:35→17:56)
[2018-02-24] MEDS ORDERED: SODIUM CHLORIDE 0.9% 1,000 ML IV PRN (07:36)
[2018-02-24] MEDS ORDERED: ASPIRIN EC 81 MG TABLET PO PRN (07:37)
[2018-02-24] MEDS ORDERED: BACLOFEN 10 MG TABLET PO PRN (07:37)
[2018-02-24] MEDS ORDERED: FLUTICASONE 50 MCG NASAL SPRAY 16 GM BOTTLE BOTH NARES SCH (09:00)
[2018-02-24] MEDS: DOCUSATE SODIUM 100 MG CAPSULE PO PRN (09:03)
[2018-02-24] MEDS: PANTOPRAZOLE 40 MG TABLET PO SCH (09:03)
[2018-02-24] MEDS: ASCORBIC ACID 500 MG TABLET PO SCH (09:03)
[2018-02-24] MEDS: oxyCODONE/ACETAMINOPHEN 5-325 MG TABLET PO PRN (09:03)
[2018-02-24] MEDS: ACETAMINOPHEN 325 MG TABLET PO PRN (14:54)
[2018-02-24] MEDS: SODIUM CHLORIDE 0.9% 1,000 ML IV SCH ×2 (15:13→16:38)
[2018-02-24] MEDS: ENOXAPARIN 30 MG/0.3 ML SYRINGE SUBCUT SCH (15:16)
[2018-02-24] MEDS: ALPRAZolam 0.25 MG TABLET PO SCH (21:09)
[2018-02-24 22:42] LABS: Hematocrit 28.3 VOL% (35.7-47.0); Hemoglobin 8.9 GM/DL (12.0-16.0)
[2018-02-24] MEDS: GABAPENTIN 100 MG CAPSULE PO SCH (23:12)
[2018-02-24] MEDS: MEGESTROL 40 MG TABLET PO SCH (23:12)
[2018-02-25 04:22] LABS: Basophils # 0.1 10*3/uL (0.0-0.2); Basophils % 0.3 % (0.0-0.8); Eosinophils % 0.2 % (0.00-10.9); Hematocrit 26.8 VOL% (35.7-47.0); Hemoglobin 8.4 GM/DL (12.0-16.0); Immature Granulocytes % 4.2 %; Immature Granulocytes Absolute 1.08 #; Lymphocytes # 1.8 10*3/uL (1.4-4.0); Lymphocytes % 6.9 % (21.3-54.2); Mean Corpuscular HGB Conc 31.3 GM/DL (32-36); Mean Corpuscular Hemoglobin 29 PG (27-34); Mean Corpuscular Volume 93.7 FL (87-102); Mean Platelet Volume 9.7 FL (9.6-12.0); Monocytes # 1.1 10*3/uL (0.11-0.8); Monocytes % 4.2 % (1.7-12.7); NRBC # 0.03 10*3/uL; Neutrophils # 21.8 10*3/uL (1.4-7.4); Neutrophils % 84.2 % (38.7-73.9); Platelet Count 406 T/CUMM (130-400); Red Blood Count 2.86 MC/CUMM (3.8-5.5); Red Cell Distribution Width 16.8 % (9.3-17.3); White Blood Count 25.9 T/CUMM (4-12)
[2018-02-25] MEDS: INSULIN LISPRO 100 UNIT/ML SUBCUT SCH ×4 (04:28→18:27)
[2018-02-25 04:55] LABS: Albumin 1.3 G/DL (3.4-5.0); Bilirubin,Total 0.7 MG/DL (0.2-1.0); Calcium 8.4 MG/DL (8.5-10.1); Osmolality,Calculated 285.4 MOS/KG (273-304); Total Protein 6.3 G/DL (6.4-8.3)
[2018-02-25 05:06] LABS: Eosinophils 1 % (0-10); Hypochromasia Slight; Lymphocytes 4 % (20-55); Platelet Estimate Normal; Segmented Neutrophils 91 % (50-85); Total Cells Counted 100
[2018-02-25] MEDS: MEROPENEM 1,000 MG in SODIUM CHLORIDE 0.9% 100 ML IV SCH ×2 (06:31→17:14)
[2018-02-25] MEDS: SODIUM CHLORIDE 0.9% 1,000 ML IV SCH ×2 (06:50→13:45)
[2018-02-25] MEDS: PANTOPRAZOLE 40 MG TABLET PO SCH (08:23)
[2018-02-25] MEDS: ASCORBIC ACID 500 MG TABLET PO SCH (08:23)
[2018-02-25] MEDS: OXYBUTYNIN XL 10 MG TABLET PO SCH (08:23)
[2018-02-25] MEDS: MEGESTROL 40 MG TABLET PO SCH ×2 (08:23→20:42)
[2018-02-25] MEDS: GABAPENTIN 100 MG CAPSULE PO SCH ×3 (08:24→20:42)
[2018-02-25] MEDS ORDERED: VANCOMYCIN INJ 1,250 MG in SODIUM CHLORIDE 0.9% 250 ML IV ONE (10:00)
[2018-02-25] MEDS: ENOXAPARIN 30 MG/0.3 ML SYRINGE SUBCUT SCH (16:05)
[2018-02-25] MEDS ORDERED: POLYETHYLENE GLYCOL POWDER 17 GM PACK PO PRN (17:01)
[2018-02-25] MEDS: ALPRAZolam 0.25 MG TABLET PO SCH (20:42)
[2018-02-26] MEDS: INSULIN LISPRO 100 UNIT/ML SUBCUT SCH ×5 (00:16→23:39)
[2018-02-26] MEDS: SODIUM CHLORIDE 0.9% 1,000 ML IV SCH ×2 (03:48→21:15)
[2018-02-26 04:58] LABS: Basophils # 0.1 10*3/uL (0.0-0.2); Basophils % 0.3 % (0.0-0.8); Eosinophils # 0.1 10*3/uL (0.0-0.87); Eosinophils % 0.3 % (0.00-10.9); Hematocrit 25.9 VOL% (35.7-47.0); Hemoglobin 8.1 GM/DL (12.0-16.0); Immature Granulocytes % 5.1 %; Immature Granulocytes Absolute 1.07 #; Lymphocytes # 1.9 10*3/uL (1.4-4.0); Lymphocytes % 9.1 % (21.3-54.2); Mean Corpuscular HGB Conc 31.3 GM/DL (32-36); Mean Corpuscular Hemoglobin 30 PG (27-34); Mean Corpuscular Volume 94.5 FL (87-102); Mean Platelet Volume 9.2 FL (9.6-12.0); Monocytes % 4.9 % (1.7-12.7); NRBC # 0.02 10*3/uL; Neutrophils % 80.3 % (38.7-73.9); Platelet Count 368 T/CUMM (130-400); Red Blood Count 2.74 MC/CUMM (3.8-5.5); Red Cell Distribution Width 17.2 % (9.3-17.3); White Blood Count 21.1 T/CUMM (4-12)
[2018-02-26] MEDS: MEROPENEM 1,000 MG in SODIUM CHLORIDE 0.9% 100 ML IV SCH ×2 (05:05→17:10)
[2018-02-26 05:17] LABS: Calcium 8.5 MG/DL (8.5-10.1)
[2018-02-26 05:36] LABS: Eosinophils 1 % (0-10); Hypochromasia Slight; Lymphocytes 6 % (20-55); Myelocytes 1 %; Segmented Neutrophils 84 % (50-85); Total Cells Counted 100
[2018-02-26 05:37] LABS: Macrocytosis Slight
[2018-02-26] MEDS: ASCORBIC ACID 500 MG TABLET PO SCH (09:21)
[2018-02-26] MEDS: GABAPENTIN 100 MG CAPSULE PO SCH ×3 (09:21→21:16)
[2018-02-26] MEDS: OXYBUTYNIN XL 10 MG TABLET PO SCH (09:21)
[2018-02-26] MEDS: MEGESTROL 40 MG TABLET PO SCH ×2 (09:21→21:16)
[2018-02-26] MEDS: PANTOPRAZOLE 40 MG TABLET PO SCH (09:21)
[2018-02-26] MEDS: MAGNESIUM SULF RIDER 2 GM in PREMIX 1 EACH IV PRN (09:32)
[2018-02-26] MEDS: VANCOMYCIN INJ 1,250 MG in SODIUM CHLORIDE 0.9% 250 ML IV SCH (13:48)
[2018-02-26] MEDS: ENOXAPARIN 30 MG/0.3 ML SYRINGE SUBCUT SCH (15:54)
[2018-02-26] MEDS: ALPRAZolam 0.25 MG TABLET PO SCH (21:16)
[2018-02-27 04:17] LABS: Basophils # 0.1 10*3/uL (0.0-0.2); Basophils % 0.4 % (0.0-0.8); Eosinophils # 0.1 10*3/uL (0.0-0.87); Eosinophils % 0.7 % (0.00-10.9); Hematocrit 26.1 VOL% (35.7-47.0); Immature Granulocytes % 4.7 %; Lymphocytes # 2.1 10*3/uL (1.4-4.0); Lymphocytes % 12.5 % (21.3-54.2); Mean Corpuscular HGB Conc 30.7 GM/DL (32-36); Mean Corpuscular Hemoglobin 29 PG (27-34); Mean Corpuscular Volume 95.3 FL (87-102); Mean Platelet Volume 9.6 FL (9.6-12.0); Monocytes # 0.8 10*3/uL (0.11-0.8); Monocytes % 4.5 % (1.7-12.7); NRBC # 0.02 10*3/uL; Neutrophils # 13.2 10*3/uL (1.4-7.4); Neutrophils % 77.2 % (38.7-73.9); Platelet Count 410 T/CUMM (130-400); Red Blood Count 2.74 MC/CUMM (3.8-5.5); Red Cell Distribution Width 17.2 % (9.3-17.3); White Blood Count 17.1 T/CUMM (4-12)
[2018-02-27 04:43] LABS: Calcium 8.8 MG/DL (8.5-10.1); Osmolality,Calculated 285.1 MOS/KG (273-304)
[2018-02-27 04:53] LABS: Band Neutrophils 1 % (0-10); Hypochromasia Slight; Lymphocytes 13 % (20-55); Platelet Estimate Normal; Segmented Neutrophils 80 % (50-85); Total Cells Counted 100
[2018-02-27] MEDS: MEROPENEM 1,000 MG in SODIUM CHLORIDE 0.9% 100 ML IV SCH ×2 (05:39→21:30)
[2018-02-27] MEDS: INSULIN LISPRO 100 UNIT/ML SUBCUT SCH ×3 (06:59→19:05)
[2018-02-27] MEDS: DOCUSATE SODIUM 100 MG CAPSULE PO PRN (09:03)
[2018-02-27] MEDS: ASCORBIC ACID 500 MG TABLET PO SCH (09:03)
[2018-02-27] MEDS: MEGESTROL 40 MG TABLET PO SCH ×2 (09:04→21:29)
[2018-02-27] MEDS: OXYBUTYNIN XL 10 MG TABLET PO SCH (09:04)
[2018-02-27] MEDS: PANTOPRAZOLE 40 MG TABLET PO SCH (09:04)
[2018-02-27] MEDS: GABAPENTIN 100 MG CAPSULE PO SCH ×3 (09:04→21:29)
[2018-02-27] MEDS ORDERED: SODIUM CHLORIDE 0.9% 1,000 ML IV PRN (12:28)
[2018-02-27] MEDS: VANCOMYCIN INJ 1,250 MG in SODIUM CHLORIDE 0.9% 250 ML IV SCH (13:41)
[2018-02-27] MEDS: SODIUM CHLORIDE 0.9% 1,000 ML IV SCH (13:42)
[2018-02-27] MEDS ORDERED: diphenhydrAMINE CAP 50 MG CAPSULE PO ONE (16:29)
[2018-02-27] MEDS: ENOXAPARIN 30 MG/0.3 ML SYRINGE SUBCUT SCH (16:36)
[2018-02-27] MEDS: ACETAMINOPHEN 325 MG TABLET PO PRN (16:36)
[2018-02-27] MEDS: ALPRAZolam 0.25 MG TABLET PO SCH (21:29)
[2018-02-27] MEDS: oxyCODONE/ACETAMINOPHEN 5-325 MG TABLET PO PRN (21:40)
[2018-02-28] MEDS: INSULIN LISPRO 100 UNIT/ML SUBCUT SCH ×4 (01:34→18:33)
[2018-02-28] MEDS: MEROPENEM 1,000 MG in SODIUM CHLORIDE 0.9% 100 ML IV SCH (04:45)
[2018-02-28 06:11] LABS: Basophils # 0.1 10*3/uL (0.0-0.2); Basophils % 0.5 % (0.0-0.8); Eosinophils # 0.2 10*3/uL (0.0-0.87); Hematocrit 32.9 VOL% (35.7-47.0); Hemoglobin 10.4 GM/DL (12.0-16.0); Immature Granulocytes % 2.5 %; Immature Granulocytes Absolute 0.41 #; Lymphocytes # 1.9 10*3/uL (1.4-4.0); Lymphocytes % 11.7 % (21.3-54.2); Mean Corpuscular HGB Conc 31.6 GM/DL (32-36); Mean Corpuscular Hemoglobin 30 PG (27-34); Mean Corpuscular Volume 93.5 FL (87-102); Mean Platelet Volume 9.4 FL (9.6-12.0); Monocytes # 0.9 10*3/uL (0.11-0.8); Monocytes % 5.5 % (1.7-12.7); Neutrophils % 78.8 % (38.7-73.9); Platelet Count 376 T/CUMM (130-400); Red Blood Count 3.52 MC/CUMM (3.8-5.5); Red Cell Distribution Width 16.4 % (9.3-17.3); White Blood Count 16.5 T/CUMM (4-12)
[2018-02-28 06:31] LABS: Calcium 8.8 MG/DL (8.5-10.1); Potassium 4.1 MMOL/L (3.5-5.1)
[2018-02-28] MEDS: ASCORBIC ACID 500 MG TABLET PO SCH (08:28)
[2018-02-28] MEDS: MEGESTROL 40 MG TABLET PO SCH ×2 (08:28→20:28)
[2018-02-28] MEDS: OXYBUTYNIN XL 10 MG TABLET PO SCH (08:28)
[2018-02-28] MEDS: DOCUSATE SODIUM 100 MG CAPSULE PO PRN (08:28)
[2018-02-28] MEDS: GABAPENTIN 100 MG CAPSULE PO SCH ×3 (08:28→20:26)
[2018-02-28] MEDS: PANTOPRAZOLE 40 MG TABLET PO SCH (08:28)
[2018-02-28] MEDS ORDERED: cefOXitin 2,000 MG in SYRINGE 1 EACH IV ONE (11:55)
[2018-02-28] MEDS ORDERED: SODIUM CHLORIDE 0.9% IV ONE (13:00)
[2018-02-28] MEDS ORDERED: MAGNESIUM SULF IV ONE (13:00)
[2018-02-28] MEDS: SODIUM CHLORIDE 0.9% 1,000 ML IV SCH (14:05)
[2018-02-28] MEDS: ENOXAPARIN 30 MG/0.3 ML SYRINGE SUBCUT SCH (14:05)
[2018-02-28] MEDS: oxyCODONE/ACETAMINOPHEN 5-325 MG TABLET PO PRN (16:33)
[2018-02-28] MEDS: PIPERACILLIN/TAZOBACTAM 3,375 MG in SODIUM CHLORIDE 0.9% 100 ML IV SCH (18:36)
[2018-02-28] MEDS: ALPRAZolam 0.25 MG TABLET PO SCH (20:26)
[2018-03-01] MEDS: INSULIN LISPRO 100 UNIT/ML SUBCUT SCH ×4 (01:51→18:31)
[2018-03-01] MEDS: PIPERACILLIN/TAZOBACTAM 3,375 MG in SODIUM CHLORIDE 0.9% 100 ML IV SCH ×3 (02:14→20:53)
[2018-03-01] MEDS: SODIUM CHLORIDE 0.9% 1,000 ML IV SCH (02:15)
[2018-03-01 05:14] LABS: Basophils # 0.1 10*3/uL (0.0-0.2); Basophils % 0.5 % (0.0-0.8); Eosinophils # 0.1 10*3/uL (0.0-0.87); Hematocrit 32.3 VOL% (35.7-47.0); Hemoglobin 10.2 GM/DL (12.0-16.0); Immature Granulocytes % 1.6 %; Immature Granulocytes Absolute 0.24 #; Lymphocytes # 1.8 10*3/uL (1.4-4.0); Lymphocytes % 12.4 % (21.3-54.2); Mean Corpuscular HGB Conc 31.6 GM/DL (32-36); Mean Corpuscular Hemoglobin 29 PG (27-34); Mean Corpuscular Volume 93.1 FL (87-102); Mean Platelet Volume 9.1 FL (9.6-12.0); Monocytes # 0.8 10*3/uL (0.11-0.8); Monocytes % 5.2 % (1.7-12.7); Neutrophils # 11.7 10*3/uL (1.4-7.4); Neutrophils % 79.3 % (38.7-73.9); Platelet Count 383 T/CUMM (130-400); Red Blood Count 3.47 MC/CUMM (3.8-5.5); Red Cell Distribution Width 16.3 % (9.3-17.3); White Blood Count 14.7 T/CUMM (4-12)
[2018-03-01 05:23] LABS: PT Patient Result 10.9 SECS
[2018-03-01 05:29] LABS: Calcium 8.9 MG/DL (8.5-10.1); Osmolality,Calculated 284.1 MOS/KG (273-304); Potassium 3.8 MMOL/L (3.5-5.1)
[2018-03-01 05:34] LABS: Albumin 1.4 G/DL (3.4-5.0); Bilirubin,Total 0.6 MG/DL (0.2-1.0); Osmolality,Calculated 284.1 MOS/KG (273-304); Potassium 3.7 MMOL/L (3.5-5.1); Total Protein 6.1 G/DL (6.4-8.3)
[2018-03-01] MEDS ORDERED: cefOXitin 2,000 MG in SYRINGE 1 EACH IV ONE (07:30)
[2018-03-01] MEDS ORDERED: NALOXONE 0.4 MG/ML VIAL IV PRN (07:57)
[2018-03-01] MEDS ORDERED: ROPIVACAINE 0.5% 30 ML VIAL ONE (07:57)
[2018-03-01] MEDS ORDERED: ONDANSETRON 4 MG/2 ML VIAL IV PRN (08:42)
[2018-03-01] MEDS ORDERED: HYDROmorphone 2 MG/1 ML VIAL IV PRN (08:42)
[2018-03-01] MEDS ORDERED: MIDAZOLAM 2 MG/2 ML VIAL ONE (10:02)
[2018-03-01] MEDS ORDERED: fentaNYL 100 MCG/2 ML VIAL ONE (10:02)
[2018-03-01] MEDS ORDERED: PROPOFOL 200 MG/20 ML VIAL IV ONE (10:02)
[2018-03-01] MEDS ORDERED: SEVOFLURANE 1 UNIT/15 MINUTE INH ONE (10:02)
[2018-03-01] MEDS ORDERED: ONDANSETRON 4 MG/2 ML VIAL ONE (10:03)
[2018-03-01] MEDS ORDERED: GLYCOPYRROLATE 0.4 MG/2 ML VIAL ONE (10:03)
[2018-03-01] MEDS ORDERED: KETOROLAC 30 MG/1 ML VIAL ONE (10:03)
[2018-03-01] MEDS ORDERED: ePHEDrine 50 MG/ML AMP ONE (10:03)
[2018-03-01] MEDS ORDERED: ACETAMINOPHEN 1,000 MG/100 ML VIAL IV ONE (10:03)
[2018-03-01] MEDS ORDERED: PHENYLEPHRINE 1 MG/10 ML SYRINGE IV ONE (10:03)
[2018-03-01] MEDS ORDERED: DEXAMETHASONE 10 MG/1 ML VIAL ONE (10:03)
[2018-03-01] MEDS ORDERED: NEOSTIGMINE 10 MG/10 ML VIAL ONE (10:04)
[2018-03-01] MEDS ORDERED: ROCURONIUM 100 MG/10 ML VIAL IV ONE (10:04)
[2018-03-01] MEDS ORDERED: LACTATED RINGERS 1,000 ML IV ONE (10:04)
[2018-03-01] MEDS: HYDROmorphone PCA 30 MG/30 ML SYRINGE IV SCH (11:17)
[2018-03-01] MEDS: GABAPENTIN 100 MG CAPSULE PO SCH ×3 (11:58→20:55)
[2018-03-01] MEDS: OXYBUTYNIN XL 10 MG TABLET PO SCH (11:58)
[2018-03-01] MEDS: MEGESTROL 40 MG TABLET PO SCH ×2 (11:58→20:55)
[2018-03-01] MEDS: PANTOPRAZOLE 40 MG TABLET PO SCH (11:59)
[2018-03-01] MEDS: ASCORBIC ACID 500 MG TABLET PO SCH (11:59)
[2018-03-01] MEDS: ENOXAPARIN 30 MG/0.3 ML SYRINGE SUBCUT SCH (15:30)
[2018-03-01] MEDS: ALPRAZolam 0.25 MG TABLET PO SCH (20:54)
[2018-03-02] MEDS: INSULIN LISPRO 100 UNIT/ML SUBCUT SCH ×4 (00:08→18:15)
[2018-03-02] MEDS: SODIUM CHLORIDE 0.9% 1,000 ML IV SCH ×2 (05:24→17:33)
[2018-03-02] MEDS: PIPERACILLIN/TAZOBACTAM 3,375 MG in SODIUM CHLORIDE 0.9% 100 ML IV SCH ×3 (05:25→21:12)
[2018-03-02 05:57] LABS: Basophils % 0.1 % (0.0-0.8); Hematocrit 32.6 VOL% (35.7-47.0); Hemoglobin 10.2 GM/DL (12.0-16.0); Immature Granulocytes % 1.3 %; Immature Granulocytes Absolute 0.26 #; Lymphocytes # 1.2 10*3/uL (1.4-4.0); Lymphocytes % 5.7 % (21.3-54.2); Mean Corpuscular HGB Conc 31.3 GM/DL (32-36); Mean Corpuscular Hemoglobin 30 PG (27-34); Mean Corpuscular Volume 94.2 FL (87-102); Mean Platelet Volume 9.1 FL (9.6-12.0); Monocytes # 0.8 10*3/uL (0.11-0.8); Monocytes % 3.9 % (1.7-12.7); Platelet Count 408 T/CUMM (130-400); Red Blood Count 3.46 MC/CUMM (3.8-5.5); Red Cell Distribution Width 15.9 % (9.3-17.3); White Blood Count 20.2 T/CUMM (4-12)
[2018-03-02 06:15] LABS: Calcium 8.9 MG/DL (8.5-10.1); Osmolality,Calculated 284.4 MOS/KG (273-304); Potassium 4.4 MMOL/L (3.5-5.1)
[2018-03-02 06:50] LABS: Lymphocytes 6 % (20-55); Segmented Neutrophils 92 % (50-85); Total Cells Counted 100
[2018-03-02 06:51] LABS: Anisocytosis 1+; Platelet Estimate Adequate
[2018-03-02] MEDS: OXYBUTYNIN XL 10 MG TABLET PO SCH (10:08)
[2018-03-02] MEDS: PANTOPRAZOLE 40 MG TABLET PO SCH (10:09)
[2018-03-02] MEDS: HYDROmorphone PCA 30 MG/30 ML SYRINGE IV SCH (10:09)
[2018-03-02] MEDS: GABAPENTIN 100 MG CAPSULE PO SCH ×3 (10:09→21:13)
[2018-03-02] MEDS: ASCORBIC ACID 500 MG TABLET PO SCH (10:09)
[2018-03-02] MEDS: MEGESTROL 40 MG TABLET PO SCH ×2 (10:09→21:13)
[2018-03-02] MEDS: ENOXAPARIN 30 MG/0.3 ML SYRINGE SUBCUT SCH (14:45)
[2018-03-02] MEDS: DOCUSATE SODIUM 100 MG CAPSULE PO PRN (14:45)
[2018-03-02] MEDS: ALPRAZolam 0.25 MG TABLET PO SCH (21:13)
[2018-03-03] MEDS: INSULIN LISPRO 100 UNIT/ML SUBCUT SCH ×4 (01:16→20:07)
[2018-03-03 04:32] LABS: Basophils # 0.1 10*3/uL (0.0-0.2); Basophils % 0.4 % (0.0-0.8); Eosinophils # 0.1 10*3/uL (0.0-0.87); Eosinophils % 0.4 % (0.00-10.9); Hematocrit 31.2 VOL% (35.7-47.0); Hemoglobin 9.5 GM/DL (12.0-16.0); Immature Granulocytes % 1.1 %; Immature Granulocytes Absolute 0.17 #; Lymphocytes # 2.6 10*3/uL (1.4-4.0); Lymphocytes % 15.9 % (21.3-54.2); Mean Corpuscular HGB Conc 30.4 GM/DL (32-36); Mean Corpuscular Hemoglobin 29 PG (27-34); Mean Corpuscular Volume 95.7 FL (87-102); Monocytes # 1.1 10*3/uL (0.11-0.8); Monocytes % 6.5 % (1.7-12.7); Neutrophils # 12.3 10*3/uL (1.4-7.4); Neutrophils % 75.7 % (38.7-73.9); Platelet Count 402 T/CUMM (130-400); Red Blood Count 3.26 MC/CUMM (3.8-5.5); Red Cell Distribution Width 15.8 % (9.3-17.3); White Blood Count 16.2 T/CUMM (4-12)
[2018-03-03 05:01] LABS: Calcium 8.7 MG/DL (8.5-10.1); Osmolality,Calculated 279.4 MOS/KG (273-304); Potassium 3.9 MMOL/L (3.5-5.1)
[2018-03-03] MEDS: PIPERACILLIN/TAZOBACTAM 3,375 MG in SODIUM CHLORIDE 0.9% 100 ML IV SCH ×2 (05:15→13:55)
[2018-03-03] MEDS: SODIUM CHLORIDE 0.9% 1,000 ML IV SCH ×2 (05:16→12:17)
[2018-03-03] MEDS: DOCUSATE SODIUM 100 MG CAPSULE PO PRN (10:35)
[2018-03-03] MEDS: OXYBUTYNIN XL 10 MG TABLET PO SCH (10:35)
[2018-03-03] MEDS: ASCORBIC ACID 500 MG TABLET PO SCH (10:35)
[2018-03-03] MEDS: MEGESTROL 40 MG TABLET PO SCH ×2 (10:35→20:17)
[2018-03-03] MEDS: PANTOPRAZOLE 40 MG TABLET PO SCH (10:35)
[2018-03-03] MEDS: GABAPENTIN 100 MG CAPSULE PO SCH ×3 (10:35→20:17)
[2018-03-03] MEDS: HYDROmorphone PCA 30 MG/30 ML SYRINGE IV SCH (10:39)
[2018-03-03] MEDS: ENOXAPARIN 30 MG/0.3 ML SYRINGE SUBCUT SCH (13:56)
[2018-03-03] MEDS: ALPRAZolam 0.25 MG TABLET PO SCH (20:17)
[2018-03-04] MEDS: INSULIN LISPRO 100 UNIT/ML SUBCUT SCH ×4 (00:12→20:04)
[2018-03-04] MEDS: PIPERACILLIN/TAZOBACTAM 3,375 MG in SODIUM CHLORIDE 0.9% 100 ML IV SCH ×3 (01:08→19:05)
[2018-03-04 05:44] LABS: Basophils # 0.1 10*3/uL (0.0-0.2); Basophils % 0.5 % (0.0-0.8); Eosinophils # 0.1 10*3/uL (0.0-0.87); Eosinophils % 0.7 % (0.00-10.9); Hematocrit 32.1 VOL% (35.7-47.0); Hemoglobin 10.1 GM/DL (12.0-16.0); Immature Granulocytes % 1.2 %; Immature Granulocytes Absolute 0.18 #; Lymphocytes # 2.2 10*3/uL (1.4-4.0); Mean Corpuscular HGB Conc 31.5 GM/DL (32-36); Mean Corpuscular Hemoglobin 30 PG (27-34); Mean Corpuscular Volume 95.3 FL (87-102); Mean Platelet Volume 9.2 FL (9.6-12.0); Monocytes # 0.9 10*3/uL (0.11-0.8); Neutrophils # 11.1 10*3/uL (1.4-7.4); Neutrophils % 76.6 % (38.7-73.9); Platelet Count 429 T/CUMM (130-400); Red Blood Count 3.37 MC/CUMM (3.8-5.5); Red Cell Distribution Width 15.4 % (9.3-17.3); White Blood Count 14.4 T/CUMM (4-12)
[2018-03-04 06:10] LABS: Calcium 8.9 MG/DL (8.5-10.1); Potassium 3.8 MMOL/L (3.5-5.1)
[2018-03-04] MEDS: MEGESTROL 40 MG TABLET PO SCH ×2 (08:53→20:57)
[2018-03-04] MEDS: GABAPENTIN 100 MG CAPSULE PO SCH ×3 (08:53→20:57)
[2018-03-04] MEDS: OXYBUTYNIN XL 10 MG TABLET PO SCH (08:53)
[2018-03-04] MEDS: ASCORBIC ACID 500 MG TABLET PO SCH (08:53)
[2018-03-04] MEDS: HYDROmorphone PCA 30 MG/30 ML SYRINGE IV SCH (08:54)
[2018-03-04] MEDS: PANTOPRAZOLE 40 MG TABLET PO SCH (09:01)
[2018-03-04] MEDS: POLYETHYLENE GLYCOL POWDER 17 GM PACK PO SCH (14:45)
[2018-03-04] MEDS: ENOXAPARIN 30 MG/0.3 ML SYRINGE SUBCUT SCH (14:45)
[2018-03-04] MEDS: SODIUM CHLORIDE 0.9% 1,000 ML IV SCH (21:56)
[2018-03-05] MEDS: INSULIN LISPRO 100 UNIT/ML SUBCUT SCH ×3 (00:29→12:38)
[2018-03-05] MEDS: PIPERACILLIN/TAZOBACTAM 3,375 MG in SODIUM CHLORIDE 0.9% 100 ML IV SCH ×2 (00:58→09:38)
[2018-03-05] MEDS: POLYETHYLENE GLYCOL POWDER 17 GM PACK PO SCH (09:38)
[2018-03-05] MEDS: OXYBUTYNIN XL 10 MG TABLET PO SCH (09:39)
[2018-03-05] MEDS: GABAPENTIN 100 MG CAPSULE PO SCH ×2 (09:39→15:15)
[2018-03-05] MEDS: MEGESTROL 40 MG TABLET PO SCH (09:39)
[2018-03-05] MEDS: ASCORBIC ACID 500 MG TABLET PO SCH (09:39)
[2018-03-05] MEDS: PANTOPRAZOLE 40 MG TABLET PO SCH (09:39)
[2018-03-05] MEDS: DOCUSATE SODIUM 100 MG CAPSULE PO PRN (09:39)
[2018-03-05] MEDS ORDERED: HEPARIN LOCK FLUSH 500 UNIT/5 ML SYRINGE IV ONE (15:11)
[2018-03-05] MEDS: ENOXAPARIN 30 MG/0.3 ML SYRINGE SUBCUT SCH (15:15)
[2018-03-05 16:17] VITALS: BP 96/53
== END 2018-03-05 16:33 | disposition home health service (06) | DRG 330 ==
LOC: N.ED 11:11 → SUATTDRO 14:17 → N.EDINP 14:17 → N.ICU 14:58 → N.4E 02-24 21:36
PROVIDERS: ADMIT Internal Medicine; ATTEND Internal Medicine Cardiovascular Disease

== ENCOUNTER 2021-09-27 12:30 | Inpatient (IN) ==
[2021-09-27] MEDS ORDERED: SODIUM CHLORIDE 0.9% 1,000 ML IV STA ×2 (13:10→13:32)
[2021-09-27 13:33] LABS: Basophils % 0.2 % (0.0-0.8); Hematocrit 33.1 VOL% (35.7-47.0); Immature Granulocytes % 0.3 %; Immature Granulocytes Absolute 0.04 #; Lymphocytes % 7.9 % (21.3-54.2); Mean Corpuscular HGB Conc 30.2 GM/DL (32-36); Mean Corpuscular Volume 96.2 FL (87-102); Mean Platelet Volume 9.8 FL (9.6-12.0); Monocytes # 0.1 10*3/uL (0.11-0.8); Monocytes % 0.7 % (1.7-12.7); Neutrophils % 90.9 % (38.7-73.9); Platelet Count 388 T/CUMM (130-400); Red Blood Count 3.44 MC/CUMM (3.8-5.5); Red Cell Distribution Width 14.3 % (9.3-17.3); White Blood Count 12.4 T/CUMM (4-12)
[2021-09-27 13:58] LABS: Albumin 2.3 G/DL (3.4-5.0); Bilirubin,Total 0.4 MG/DL (0.20-1.00); Calcium 9.7 MG/DL (8.5-10.1); Osmolality,Calculated 288.5 MOS/KG (273-304); Potassium 4.1 MMOL/L (3.5-5.1); Total Protein 7.9 G/DL (6.4-8.2)
[2021-09-27] MEDS ORDERED: VANCOMYCIN INJ 2,000 MG in SODIUM CHLORIDE 0.9% 250 ML IV ONE (14:00)
[2021-09-27] MEDS ORDERED: PIPERACILLIN/TAZOBACTAM 3,375 MG in SODIUM CHLORIDE 0.9% 100 ML IV SCH (14:00)
[2021-09-27 14:01] LABS: Band Neutrophils 22 % (0-10); Lymphocytes 10 % (20-55); Total Cells Counted 100
[2021-09-27 14:02] LABS: Platelet Estimate Adequate
[2021-09-27 14:37] LABS: Bacteria,Urine Moderate /HPF (Few); Bilirubin,Urine Negative (Negative); Blood, Urine Small mg/dL (Negative); Glucose,Urine (UA) Negative (Negative); Ketones,Urine Negative (Negative); Mucus,Urine Occasional /LPF (Occasional); Nitrite,Urine Negative (Negative); Protein,Urine 100 mg/dL (Negative); Squamous Epithelial Cell,Urine Occasional /HPF (0-10); Urine Appearance Cloudy (Clear); Urine Color Yellow (Yellow); Urine pH 5.5 (4.5-8.0)
[2021-09-27 14:38] LABS: Urine Urobilinogen 0.2 eU/dL (<2.0)
[2021-09-27] MEDS ORDERED: ALBUTEROL 2.5 MG/3 ML NEB RESP TX PRN (15:28)
[2021-09-27] MEDS ORDERED: VANCOMYCIN INJ 2,000 MG in SODIUM CHLORIDE 0.9% 500 ML IV ONE (15:30)
[2021-09-27] MEDS ORDERED: VANCOMYCIN INJ 2,000 MG in SODIUM CHLORIDE 0.9% 500 ML IV PRN (15:42)
[2021-09-27] MEDS ORDERED: MORPHINE 2 MG/1 ML SYRINGE IV PRN (16:05)
[2021-09-27] MEDS: SODIUM CHLORIDE 0.9% 1,000 ML IV SCH ×2 (17:08→23:02)
[2021-09-27] MEDS ORDERED: GLUCAGON 1 MG VIAL IM PRN (17:38)
[2021-09-27] MEDS ORDERED: DEXTROSE 10% 250 ML BAG IV PRN (17:38)
[2021-09-27] MEDS ORDERED: SODIUM CHLORIDE 0.9% 1,000 ML IV ONE (18:03)
[2021-09-27] MEDS: INSULIN REGULAR 100 UNIT/ML SUBCUT SCH (18:19)
[2021-09-27] MEDS: MEROPENEM 500 MG in SODIUM CHLORIDE 0.9% 100 ML IV SCH (18:35)
[2021-09-27] MEDS: MEGESTROL 40 MG TABLET PO SCH (20:44)
[2021-09-27] MEDS: FAMOTIDINE 20 MG/2 ML VIAL IV SCH (20:44)
[2021-09-27] MEDS ORDERED: METOPROLOL TARTRATE 5 MG/5 ML VIAL IV ONE (21:30)
[2021-09-28] MEDS: INSULIN REGULAR 100 UNIT/ML SUBCUT SCH ×4 (00:08→18:27)
[2021-09-28 00:56] LABS: Basophils % 0.4 % (0.0-0.8); Eosinophils # 0.1 10*3/uL (0.0-0.87); Eosinophils % 0.5 % (0.00-10.9); Hematocrit 35.1 VOL% (35.7-47.0); Hemoglobin 10.5 GM/DL (12.0-16.0); Immature Granulocytes % 0.3 %; Immature Granulocytes Absolute 0.03 #; Lymphocytes # 0.9 10*3/uL (1.4-4.0); Lymphocytes % 8.6 % (21.3-54.2); Mean Corpuscular HGB Conc 29.9 GM/DL (32-36); Mean Corpuscular Volume 96.7 FL (87-102); Mean Platelet Volume 9.3 FL (9.6-12.0); Monocytes # 0.5 10*3/uL (0.11-0.8); NRBC # 0.02 10*3/uL; Neutrophils % 85.2 % (38.7-73.9); Platelet Count 275 T/CUMM (130-400); Red Blood Count 3.63 MC/CUMM (3.8-5.5); Red Cell Distribution Width 14.4 % (9.3-17.3); White Blood Count 10.9 T/CUMM (4-12)
[2021-09-28 01:12] LABS: Calcium 8.3 MG/DL (8.5-10.1); Osmolality,Calculated 292.1 MOS/KG (273-304); Potassium 4.4 MMOL/L (3.5-5.1)
[2021-09-28 01:32] LABS: Band Neutrophils 11 % (0-10); Lymphocytes 17 % (20-55); Nucleated Red Blood Cells 28 /100 WBC (0-5); Platelet Estimate Adequate; Total Cells Counted 100
[2021-09-28 01:47] LABS: Alanine Aminotransferase 14 U/L (13-56); Albumin 1.8 G/DL (3.4-5.0); Alkaline Phosphatase 36 U/L (45-117); Aspartate Amino Transferase 21 U/L (0-37); Blood Urea Nitrogen 30 MG/DL (7-18); Calcium 8.7 MG/DL (8.5-10.1); Carbon Dioxide 10 MMOL/L (21-32); Chloride 116 MMOL/L (98-107); Cholesterol < 50 MG/DL (50-200); Glucose 147 MG/DL (74-106); HDL Cholesterol 26 MG/DL (40-60); Osmolality,Calculated 289.3 MOS/KG (273-304); Potassium 4.3 MMOL/L (3.5-5.1); Risk Ratio 1.92; Sodium 141 MMOL/L (136-145); Total Protein 6.8 G/DL (6.4-8.2); Triglycerides 92 MG/DL (2-150); VLDL Cholesterol 18.4 MG/DL
[2021-09-28] MEDS ORDERED: SODIUM CHLORIDE 0.9% 500 ML IV ONE (02:30)
[2021-09-28] MEDS: NOREPINEPHRINE 8 MG in SODIUM CHLORIDE 0.9% 242 ML IV PRN ×5 (02:39→18:27)
[2021-09-28] MEDS ORDERED: MAGNESIUM SULF RIDER 4 GM/100 ML PREMIX IV PRN (03:04)
[2021-09-28] MEDS ORDERED: MAGNESIUM SULF RIDER 2 GM/50 ML PREMIX IV PRN (03:04)
[2021-09-28] MEDS ORDERED: SODIUM BICARBONATE 50 MEQ/50 ML VIAL IV ONE (03:45)
[2021-09-28 05:07] LABS: Arterial Base Excess iSTAT -12 MMOL/L (-2.5-2.5); Arterial Bicarbonate iSTAT 11.1 MMOL/L (20-26); Arterial O2 Saturation iSTAT 97 % (95-100); Arterial PCO2 iSTAT 18 MM HG (35-48); Arterial PO2 iSTAT 86 MM HG (80-95); Arterial Total CO2 iSTAT 12 MMO/L (23-27); Arterial pH iSTAT 7.401 (7.35-7.45)
[2021-09-28] MEDS: ONDANSETRON 4 MG/2 ML VIAL IV PRN ×2 (05:10→08:46)
[2021-09-28] MEDS: MEROPENEM 500 MG in SODIUM CHLORIDE 0.9% 100 ML IV SCH ×2 (05:45→18:02)
[2021-09-28] MEDS: SODIUM BICARB INJ 150 MEQ in STERILE WATER INJ 1,000 ML IV SCH ×2 (06:30→20:09)
[2021-09-28] MEDS ORDERED: ALBUMIN 25% 25 GM/100 ML VIAL IV ONE (07:28)
[2021-09-28] MEDS ORDERED: NOREPINEPHRINE 4 MG/4 ML VIAL IV ONE (08:12)
[2021-09-28] MEDS: HYDROCORTISONE 100 MG VIAL IV SCH ×2 (08:17→15:38)
[2021-09-28] MEDS: DOCUSATE SODIUM 100 MG CAPSULE PO SCH ×2 (08:32→08:43)
[2021-09-28] MEDS: OXYBUTYNIN XL 15 MG TABLET PO SCH ×2 (08:32→08:43)
[2021-09-28] MEDS: ASCORBIC ACID 500 MG TABLET PO SCH ×2 (08:32→08:43)
[2021-09-28] MEDS: MEGESTROL 40 MG TABLET PO SCH ×3 (08:32→20:09)
[2021-09-28] MEDS: MULTIVITAMIN (CENTRUM) TABLET PO SCH ×2 (08:32→08:42)
[2021-09-28] MEDS: CHOLECALCIFEROL 5,000 UNIT TABLET PO SCH ×2 (08:33→08:41)
[2021-09-28] MEDS ORDERED: PANTOPRAZOLE 40 MG TABLET PO SCH (09:00)
[2021-09-28] MEDS: ALBUMIN 25% 12.5 GM/50 ML VIAL IV SCH ×2 (12:23→19:34)
[2021-09-28 15:44] LABS: HIV Antigen/Antibody Result Nonreactive (Nonreactive); Hepatitis B Surface Ag Quant < 0.10 Index; Hepatitis B Surface Ag Result Non-Reactive (NonReactive); Hepatitis C Virus Ab Quant 0.12 Index; Hepatitis C Virus Ab Result Non-Reactive (NonReactive)
[2021-09-28] MEDS ORDERED: MIDAZOLAM 2 MG/2 ML VIAL ONE (16:05)
[2021-09-28 16:06] LABS: Calcium 7.7 MG/DL (8.5-10.1); Potassium 4.8 MMOL/L (3.5-5.1)
[2021-09-28] MEDS ORDERED: MIDAZOLAM 2 MG/2 ML VIAL IV ONE (16:07)
[2021-09-28] MEDS ORDERED: MAGNESIUM SULF RIDER 2 GM/50 ML PREMIX IV ONE (16:45)
[2021-09-28 16:53] LABS: ABG Base Excess -14.4 MMOL/L (-2.5-2.5); ABG HCO3 13.3 MMOL/L (20-26); ABG Oxygen Saturation 96.4 % (95-100); ABG PO2 94.2 MM HG (80-95); ABG TCO2 9.5 MMOL/L (23-27)
[2021-09-28 16:54] LABS: ABG PCO2 19.5 MM HG (35-48)
[2021-09-28] MEDS: FAMOTIDINE 20 MG/2 ML VIAL IV SCH (21:09)
[2021-09-28] MEDS: NOREPINEPHRINE 16 MG in SODIUM CHLORIDE 0.9% 234 ML IV PRN (22:05)
[2021-09-29] MEDS: INSULIN REGULAR 100 UNIT/ML SUBCUT SCH ×5 (00:12→23:31)
[2021-09-29] MEDS: HYDROCORTISONE 100 MG VIAL IV SCH ×4 (00:12→23:31)
[2021-09-29] MEDS: ALBUMIN 25% 12.5 GM/50 ML VIAL IV SCH ×3 (03:34→19:52)
[2021-09-29 04:00] LABS: ABG Base Excess -9.6 MMOL/L (-2.5-2.5); ABG HCO3 16.7 MMOL/L (20-26); ABG Oxygen Saturation 95.3 % (95-100); ABG PCO2 23.9 MM HG (35-48); ABG PH 7.385 (7.35-7.45); ABG PO2 79.4 MM HG (80-95); ABG TCO2 13.3 MMOL/L (23-27)
[2021-09-29 04:03] LABS: Basophils # 0.1 10*3/uL (0.0-0.2); Basophils % 0.4 % (0.0-0.8); Hematocrit 26.9 VOL% (35.7-47.0); Hemoglobin 8.4 GM/DL (12.0-16.0); Immature Granulocytes % 1.6 %; Immature Granulocytes Absolute 0.35 #; Lymphocytes # 0.5 10*3/uL (1.4-4.0); Lymphocytes % 2.5 % (21.3-54.2); Mean Corpuscular HGB Conc 31.2 GM/DL (32-36); Mean Corpuscular Volume 94.1 FL (87-102); Mean Platelet Volume 10.6 FL (9.6-12.0); Monocytes # 0.8 10*3/uL (0.11-0.8); Monocytes % 3.6 % (1.7-12.7); NRBC # 0.02 10*3/uL; Neutrophils % 91.9 % (38.7-73.9); Platelet Count 203 T/CUMM (130-400); Red Blood Count 2.86 MC/CUMM (3.8-5.5); Red Cell Distribution Width 15.3 % (9.3-17.3)
[2021-09-29 04:12] LABS: INR 1.4; PT Patient Result 15.4 SECS (10.1-12.1)
[2021-09-29 04:22] LABS: Albumin 2.2 G/DL (3.4-5.0); Bilirubin,Total 0.8 MG/DL (0.20-1.00); Calcium 7.5 MG/DL (8.5-10.1); Osmolality,Calculated 295.1 MOS/KG (273-304); Potassium 4.9 MMOL/L (3.5-5.1); Total Protein 6.6 G/DL (6.4-8.2)
[2021-09-29 04:32] LABS: Band Neutrophils 10 % (0-10); Lymphocytes 3 % (20-55); Platelet Estimate Adequate; Total Cells Counted 100
[2021-09-29] MEDS: MEROPENEM 500 MG in SODIUM CHLORIDE 0.9% 100 ML IV SCH (05:50)
[2021-09-29] MEDS: NOREPINEPHRINE 16 MG in SODIUM CHLORIDE 0.9% 234 ML IV PRN (06:45)
[2021-09-29] MEDS: SODIUM BICARB INJ 150 MEQ in STERILE WATER INJ 1,000 ML IV SCH ×3 (08:24→20:00)
[2021-09-29] MEDS ORDERED: VANCOMYCIN INJ 2,000 MG in SODIUM CHLORIDE 0.9% 500 ML IV ONE (09:00)
[2021-09-29] MEDS: ASCORBIC ACID 500 MG TABLET PO SCH (10:28)
[2021-09-29] MEDS: DOCUSATE SODIUM 100 MG CAPSULE PO SCH (10:28)
[2021-09-29] MEDS: MEGESTROL 40 MG TABLET PO SCH ×2 (10:28→20:09)
[2021-09-29] MEDS: MULTIVITAMIN (CENTRUM) TABLET PO SCH (10:28)
[2021-09-29] MEDS: OXYBUTYNIN XL 15 MG TABLET PO SCH (10:28)
[2021-09-29] MEDS: CHOLECALCIFEROL 5,000 UNIT TABLET PO SCH (10:29)
[2021-09-29] MEDS: ONDANSETRON 4 MG/2 ML VIAL IV PRN (20:09)
[2021-09-29] MEDS: FAMOTIDINE 20 MG/2 ML VIAL IV SCH (20:09)
[2021-09-30] MEDS: ALBUMIN 25% 12.5 GM/50 ML VIAL IV SCH ×3 (03:36→20:17)
[2021-09-30 04:41] LABS: Basophils # 0.1 10*3/uL (0.0-0.2); Basophils % 0.5 % (0.0-0.8); Hematocrit 23.3 VOL% (35.7-47.0); Hemoglobin 7.3 GM/DL (12.0-16.0); Immature Granulocytes % 1.3 %; Immature Granulocytes Absolute 0.27 #; Lymphocytes # 0.4 10*3/uL (1.4-4.0); Lymphocytes % 2.1 % (21.3-54.2); Mean Corpuscular HGB Conc 31.3 GM/DL (32-36); Mean Corpuscular Volume 93.6 FL (87-102); Mean Platelet Volume 10.9 FL (9.6-12.0); Monocytes # 0.6 10*3/uL (0.11-0.8); Monocytes % 2.7 % (1.7-12.7); NRBC # 0.06 10*3/uL; Neutrophils % 93.4 % (38.7-73.9); Platelet Count 140 T/CUMM (130-400); Red Blood Count 2.49 MC/CUMM (3.8-5.5); Red Cell Distribution Width 15.1 % (9.3-17.3); White Blood Count 20.4 T/CUMM (4-12)
[2021-09-30 04:42] LABS: ABG Base Excess -1.1 MMOL/L (-2.5-2.5); ABG HCO3 23.5 MMOL/L (20-26); ABG Oxygen Saturation 96.6 % (95-100); ABG PCO2 36.7 MM HG (35-48); ABG PO2 91.8 MM HG (80-95); ABG TCO2 21.9 MMOL/L (23-27)
[2021-09-30 04:59] LABS: Albumin 2.5 G/DL (3.4-5.0); Band Neutrophils 1 % (0-10); Bilirubin,Total 0.6 MG/DL (0.20-1.00); Calcium 7.3 MG/DL (8.5-10.1); Hypochromia 1+; Lymphocytes 4 % (20-55); Osmolality,Calculated 298.1 MOS/KG (273-304); Platelet Estimate Normal; Potassium 4.1 MMOL/L (3.5-5.1); Total Cells Counted 100; Total Protein 6.8 G/DL (6.4-8.2)
[2021-09-30] MEDS: INSULIN REGULAR 100 UNIT/ML SUBCUT SCH ×4 (05:29→23:55)
[2021-09-30] MEDS: MEROPENEM 500 MG in SODIUM CHLORIDE 0.9% 100 ML IV SCH (05:29)
[2021-09-30] MEDS: ASCORBIC ACID 500 MG TABLET PO SCH (10:30)
[2021-09-30] MEDS: OXYBUTYNIN XL 15 MG TABLET PO SCH (10:30)
[2021-09-30] MEDS: CHOLECALCIFEROL 5,000 UNIT TABLET PO SCH (10:30)
[2021-09-30] MEDS: MEGESTROL 40 MG TABLET PO SCH ×2 (10:30→20:17)
[2021-09-30] MEDS: DOCUSATE SODIUM 100 MG CAPSULE PO SCH (10:30)
[2021-09-30] MEDS: MULTIVITAMIN (CENTRUM) TABLET PO SCH (10:30)
[2021-09-30] MEDS: SODIUM CHLORIDE 0.9% 1,000 ML IV SCH ×2 (10:31→18:31)
[2021-09-30] MEDS: HYDROCORTISONE 100 MG VIAL IV SCH ×3 (10:46→23:55)
[2021-09-30] MEDS: SODIUM BICARB INJ 150 MEQ in STERILE WATER INJ 1,000 ML IV SCH (10:46)
[2021-09-30] MEDS ORDERED: HYDROmorphone 1 MG/1 ML SYRINGE IV PRN (11:21)
[2021-09-30 18:14] LABS: ABG Base Excess -1.4 MMOL/L (-2.5-2.5); ABG HCO3 23.2 MMOL/L (20-26); ABG Oxygen Saturation 97.3 % (95-100); ABG PCO2 32.9 MM HG (35-48); ABG PO2 96.3 MM HG (80-95)
[2021-09-30] MEDS: FAMOTIDINE 20 MG/2 ML VIAL IV SCH (20:17)
[2021-10-01] MEDS: ALBUMIN 25% 12.5 GM/50 ML VIAL IV SCH ×3 (03:26→23:30)
[2021-10-01] MEDS: SODIUM CHLORIDE 0.9% 1,000 ML IV SCH (03:26)
[2021-10-01 04:23] LABS: ABG HCO3 23.6 MMOL/L (20-26); ABG Oxygen Saturation 97.1 % (95-100); ABG PCO2 33.8 MM HG (35-48); ABG PH 7.436 (7.35-7.45); Basophils # 0.1 10*3/uL (0.0-0.2); Basophils % 0.2 % (0.0-0.8); Hematocrit 21.4 VOL% (35.7-47.0); Hemoglobin 6.7 GM/DL (12.0-16.0); Immature Granulocytes % 2.7 %; Lymphocytes # 0.6 10*3/uL (1.4-4.0); Lymphocytes % 2.9 % (21.3-54.2); Mean Corpuscular HGB Conc 31.3 GM/DL (32-36); Mean Corpuscular Volume 92.6 FL (87-102); Monocytes # 0.7 10*3/uL (0.11-0.8); Monocytes % 3.2 % (1.7-12.7); NRBC # 0.08 10*3/uL; Platelet Count 120 T/CUMM (130-400); Red Blood Count 2.31 MC/CUMM (3.8-5.5); Red Cell Distribution Width 15.1 % (9.3-17.3); White Blood Count 22.5 T/CUMM (4-12)
[2021-10-01 04:37] LABS: Albumin 2.5 G/DL (3.4-5.0); Bilirubin,Total 0.7 MG/DL (0.20-1.00); Calcium 7.4 MG/DL (8.5-10.1); Osmolality,Calculated 309.6 MOS/KG (273-304); Potassium 3.6 MMOL/L (3.5-5.1); Total Protein 6.6 G/DL (6.4-8.2)
[2021-10-01] MEDS ORDERED: SODIUM CHLORIDE 0.9% 1,000 ML IV PRN (04:37)
[2021-10-01 04:52] LABS: Hypochromia 1+; Lymphocytes 2 % (20-55); Microcytosis Slight; Total Cells Counted 100
[2021-10-01] MEDS: MEROPENEM 500 MG in SODIUM CHLORIDE 0.9% 100 ML IV SCH ×2 (05:07→16:37)
[2021-10-01] MEDS: INSULIN REGULAR 100 UNIT/ML SUBCUT SCH ×3 (05:08→19:14)
[2021-10-01] MEDS: HYDROCORTISONE 100 MG VIAL IV SCH ×2 (08:05→22:30)
[2021-10-01] MEDS: MULTIVITAMIN (CENTRUM) TABLET PO SCH (08:07)
[2021-10-01] MEDS: DOCUSATE SODIUM 100 MG CAPSULE PO SCH (08:08)
[2021-10-01] MEDS: OXYBUTYNIN XL 15 MG TABLET PO SCH (08:08)
[2021-10-01] MEDS: CHOLECALCIFEROL 5,000 UNIT TABLET PO SCH (08:08)
[2021-10-01] MEDS: MEGESTROL 40 MG TABLET PO SCH ×2 (08:08→22:30)
[2021-10-01] MEDS: ASCORBIC ACID 500 MG TABLET PO SCH (08:08)
[2021-10-01] MEDS: SODIUM CHLORIDE 0.45% 1,000 ML IV SCH ×2 (09:38→16:39)
[2021-10-01] MEDS: FAMOTIDINE 20 MG/2 ML VIAL IV SCH (22:30)
[2021-10-01] MEDS: traMADol 50 MG TABLET PO PRN (22:57)
[2021-10-02] MEDS: SODIUM CHLORIDE 0.45% 1,000 ML IV SCH ×3 (05:26→16:08)
[2021-10-02] MEDS: MEROPENEM 500 MG in SODIUM CHLORIDE 0.9% 100 ML IV SCH ×2 (05:39→16:09)
[2021-10-02 05:47] LABS: Basophils # 0.1 10*3/uL (0.0-0.2); Basophils % 0.5 % (0.0-0.8); Hematocrit 29.5 VOL% (35.7-47.0); Immature Granulocytes % 9.7 %; Immature Granulocytes Absolute 2.08 #; Lymphocytes # 1.5 10*3/uL (1.4-4.0); Lymphocytes % 6.8 % (21.3-54.2); Mean Corpuscular HGB Conc 32.2 GM/DL (32-36); Mean Corpuscular Volume 89.4 FL (87-102); Monocytes # 0.9 10*3/uL (0.11-0.8); Monocytes % 4.3 % (1.7-12.7); NRBC # 0.13 10*3/uL; Neutrophils % 78.7 % (38.7-73.9); Platelet Count 118 T/CUMM (130-400); White Blood Count 21.5 T/CUMM (4-12)
[2021-10-02 05:53] LABS: Hemoglobin 9.5 GM/DL (12.0-16.0)
[2021-10-02 06:03] LABS: Albumin 2.4 G/DL (3.4-5.0); Bilirubin,Total 0.7 MG/DL (0.20-1.00); Calcium 8.6 MG/DL (8.5-10.1); Osmolality,Calculated 310.8 MOS/KG (273-304); Potassium 3.5 MMOL/L (3.5-5.1); Total Protein 6.8 G/DL (6.4-8.2)
[2021-10-02 06:12] LABS: Band Neutrophils 1 % (0-10); Hypochromia Slight; Lymphocytes 6 % (20-55); Microcytosis Slight; Total Cells Counted 100
[2021-10-02] MEDS: INSULIN REGULAR 100 UNIT/ML SUBCUT SCH ×4 (07:42→17:15)
[2021-10-02] MEDS: ALBUMIN 25% 12.5 GM/50 ML VIAL IV SCH ×3 (08:12→21:43)
[2021-10-02] MEDS: MULTIVITAMIN (CENTRUM) TABLET PO SCH (10:00)
[2021-10-02] MEDS: CHOLECALCIFEROL 5,000 UNIT TABLET PO SCH (10:01)
[2021-10-02] MEDS: ASCORBIC ACID 500 MG TABLET PO SCH (10:01)
[2021-10-02] MEDS: DOCUSATE SODIUM 100 MG CAPSULE PO SCH (10:01)
[2021-10-02] MEDS: OXYBUTYNIN XL 15 MG TABLET PO SCH (10:01)
[2021-10-02] MEDS: MEGESTROL 40 MG TABLET PO SCH ×2 (10:01→21:43)
[2021-10-02] MEDS: HYDROCORTISONE 100 MG VIAL IV SCH (10:02)
[2021-10-02] MEDS: traMADol 50 MG TABLET PO PRN ×2 (10:03→21:58)
[2021-10-02] MEDS ORDERED: VANCOMYCIN INJ 2,000 MG in SODIUM CHLORIDE 0.9% 500 ML IV ONE (17:00)
[2021-10-02 18:29] LABS: Glucose,Urine (UA) Negative (Negative); Ketones,Urine Negative (Negative); Nitrite,Urine Negative (Negative); Protein,Urine 100 mg/dL (Negative); Urine Appearance Slightly Cloudy (Clear); Urine Color Yellow (Yellow); Urine pH 5.5 (4.5-8.0)
[2021-10-02 18:30] LABS: Bilirubin,Urine Negative (Negative); Blood, Urine Moderate mg/dL (Negative); Urine Urobilinogen 0.2 eU/dL (<2.0)
[2021-10-02 18:38] LABS: Hyaline Casts,Urine 4 /LPF (0-3); RBC,Urine 66 /HPF (0-4); Squamous Epithelial Cell,Urine Occasional /HPF (0-10)
[2021-10-02] MEDS: FAMOTIDINE 20 MG/2 ML VIAL IV SCH (21:43)
[2021-10-03] MEDS: SODIUM CHLORIDE 0.45% 1,000 ML IV SCH ×2 (00:55→10:51)
[2021-10-03] MEDS: INSULIN REGULAR 100 UNIT/ML SUBCUT SCH ×4 (00:55→17:44)
[2021-10-03] MEDS: ALBUMIN 25% 12.5 GM/50 ML VIAL IV SCH ×3 (04:28→22:08)
[2021-10-03] MEDS: MEROPENEM 500 MG in SODIUM CHLORIDE 0.9% 100 ML IV SCH ×2 (04:58→17:16)
[2021-10-03 05:22] LABS: Basophils # 0.2 10*3/uL (0.0-0.2); Basophils % 0.9 % (0.0-0.8); Eosinophils % 0.1 % (0.00-10.9); Hematocrit 31.4 VOL% (35.7-47.0); Hemoglobin 9.8 GM/DL (12.0-16.0); Immature Granulocytes % 10.3 %; Immature Granulocytes Absolute 2.17 #; Lymphocytes # 2.6 10*3/uL (1.4-4.0); Lymphocytes % 12.3 % (21.3-54.2); Mean Corpuscular HGB Conc 31.2 GM/DL (32-36); Mean Corpuscular Volume 92.1 FL (87-102); Mean Platelet Volume 12.4 FL (9.6-12.0); Monocytes % 4.9 % (1.7-12.7); NRBC # 0.09 10*3/uL; Neutrophils % 71.5 % (38.7-73.9); Platelet Count 143 T/CUMM (130-400); Red Blood Count 3.41 MC/CUMM (3.8-5.5)
[2021-10-03 05:40] LABS: Albumin 2.4 G/DL (3.4-5.0); Bilirubin,Total 0.6 MG/DL (0.20-1.00); Calcium 8.6 MG/DL (8.5-10.1); Osmolality,Calculated 310.7 MOS/KG (273-304); Potassium 3.4 MMOL/L (3.5-5.1); Total Protein 6.3 G/DL (6.4-8.2)
[2021-10-03 05:47] LABS: Band Neutrophils 7 % (0-10); Lymphocytes 12 % (20-55); Nucleated Red Blood Cells 3 /100 WBC (0-5); Platelet Estimate Adequate; Total Cells Counted 100
[2021-10-03] MEDS: OXYBUTYNIN XL 15 MG TABLET PO SCH (09:20)
[2021-10-03] MEDS: DOCUSATE SODIUM 100 MG CAPSULE PO SCH ×2 (09:20→22:05)
[2021-10-03] MEDS: ASCORBIC ACID 500 MG TABLET PO SCH (09:20)
[2021-10-03] MEDS: MULTIVITAMIN (CENTRUM) TABLET PO SCH (09:20)
[2021-10-03] MEDS: MEGESTROL 40 MG TABLET PO SCH ×2 (09:21→22:04)
[2021-10-03] MEDS: CHOLECALCIFEROL 5,000 UNIT TABLET PO SCH (09:21)
[2021-10-03] MEDS: FLUCONAZOLE INJ 200 MG/100 ML PREMIX IV SCH (16:13)
[2021-10-03] MEDS: POLYETHYLENE GLYCOL POWDER 17 GM PACK PO SCH (17:17)
[2021-10-03] MEDS: traMADol 50 MG TABLET PO PRN (22:05)
[2021-10-03] MEDS: FAMOTIDINE 20 MG/2 ML VIAL IV SCH (22:05)
[2021-10-03] MEDS ORDERED: BACLOFEN 10 MG TABLET PO PRN (22:20)
[2021-10-03] MEDS: ALPRAZolam 0.25 MG TABLET PO SCH (22:42)
[2021-10-04] MEDS: INSULIN REGULAR 100 UNIT/ML SUBCUT SCH ×4 (00:31→17:57)
[2021-10-04] MEDS: SODIUM CHLORIDE 0.45% 1,000 ML IV SCH ×2 (02:02→17:44)
[2021-10-04] MEDS: MEROPENEM 500 MG in SODIUM CHLORIDE 0.9% 100 ML IV SCH ×2 (04:21→17:05)
[2021-10-04] MEDS: ALBUMIN 25% 12.5 GM/50 ML VIAL IV SCH (05:14)
[2021-10-04 05:43] LABS: Basophils # 0.2 10*3/uL (0.0-0.2); Basophils % 0.6 % (0.0-0.8); Eosinophils % 0.1 % (0.00-10.9); Hematocrit 33.3 VOL% (35.7-47.0); Hemoglobin 10.6 GM/DL (12.0-16.0); Immature Granulocytes % 6.5 %; Immature Granulocytes Absolute 1.96 #; Lymphocytes # 2.2 10*3/uL (1.4-4.0); Lymphocytes % 7.2 % (21.3-54.2); Mean Corpuscular HGB Conc 31.8 GM/DL (32-36); Mean Corpuscular Volume 88.8 FL (87-102); Mean Platelet Volume 12.2 FL (9.6-12.0); Monocytes # 1.3 10*3/uL (0.11-0.8); Monocytes % 4.2 % (1.7-12.7); NRBC # 0.07 10*3/uL; Neutrophils % 81.4 % (38.7-73.9); Platelet Count 203 T/CUMM (130-400); Red Blood Count 3.75 MC/CUMM (3.8-5.5); Red Cell Distribution Width 15.8 % (9.3-17.3); White Blood Count 30.1 T/CUMM (4-12)
[2021-10-04 06:04] LABS: Albumin 2.4 G/DL (3.4-5.0); Bilirubin,Total 0.8 MG/DL (0.20-1.00); Calcium 9.1 MG/DL (8.5-10.1); Potassium 3.3 MMOL/L (3.5-5.1); Total Protein 6.1 G/DL (6.4-8.2)
[2021-10-04 06:12] LABS: Band Neutrophils 4 % (0-10); Eosinophils 1 % (0-10); Lymphocytes 4 % (20-55); Platelet Estimate Adequate; Total Cells Counted 100
[2021-10-04 06:13] LABS: Hypochromia Slight; Microcytosis Slight
[2021-10-04] MEDS: MEGESTROL 40 MG TABLET PO SCH ×2 (10:49→20:51)
[2021-10-04] MEDS: POLYETHYLENE GLYCOL POWDER 17 GM PACK PO SCH (10:49)
[2021-10-04] MEDS: MULTIVITAMIN (CENTRUM) TABLET PO SCH (10:49)
[2021-10-04] MEDS: OXYBUTYNIN XL 15 MG TABLET PO SCH (10:49)
[2021-10-04] MEDS: DOCUSATE SODIUM 100 MG CAPSULE PO SCH ×2 (10:49→20:51)
[2021-10-04] MEDS: CHOLECALCIFEROL 5,000 UNIT TABLET PO SCH (10:50)
[2021-10-04] MEDS: ALPRAZolam 0.25 MG TABLET PO SCH ×2 (10:50→20:51)
[2021-10-04] MEDS: ASCORBIC ACID 500 MG TABLET PO SCH (10:50)
[2021-10-04] MEDS: GABAPENTIN 100 MG CAPSULE PO SCH ×3 (10:50→20:51)
[2021-10-04] MEDS ORDERED: POTASSIUM CHLORIDE 20 MEQ TABLET PO ONE (11:28)
[2021-10-04] MEDS ORDERED: SODIUM CHLORIDE 0.45% 1,000 ML IV SCH (12:00)
[2021-10-04] MEDS: FLUCONAZOLE INJ 200 MG/100 ML PREMIX IV SCH (15:20)
[2021-10-04] MEDS: MENTHOL/ZINC OXIDE OINT 71 GM JAR TOP SCH ×2 (17:58→20:51)
[2021-10-04] MEDS: FAMOTIDINE 20 MG/2 ML VIAL IV SCH (20:52)
[2021-10-04] MEDS: traMADol 50 MG TABLET PO PRN (20:54)
[2021-10-05] MEDS: INSULIN REGULAR 100 UNIT/ML SUBCUT SCH ×5 (00:13→17:40)
[2021-10-05] MEDS: SODIUM CHLORIDE 0.45% 1,000 ML IV SCH ×2 (02:56→08:51)
[2021-10-05] MEDS: MEROPENEM 500 MG in SODIUM CHLORIDE 0.9% 100 ML IV SCH ×2 (04:46→16:55)
[2021-10-05 05:33] LABS: Basophils # 0.2 10*3/uL (0.0-0.2); Basophils % 0.4 % (0.0-0.8); Eosinophils # 0.1 10*3/uL (0.0-0.87); Eosinophils % 0.2 % (0.00-10.9); Hemoglobin 9.6 GM/DL (12.0-16.0); Immature Granulocytes % 5.4 %; Immature Granulocytes Absolute 2.03 #; Lymphocytes # 1.8 10*3/uL (1.4-4.0); Lymphocytes % 4.7 % (21.3-54.2); Mean Corpuscular Volume 89.8 FL (87-102); Monocytes # 1.4 10*3/uL (0.11-0.8); Monocytes % 3.6 % (1.7-12.7); NRBC # 0.03 10*3/uL; Neutrophils % 85.7 % (38.7-73.9); Platelet Count 245 T/CUMM (130-400); Red Blood Count 3.34 MC/CUMM (3.8-5.5); Red Cell Distribution Width 15.9 % (9.3-17.3); White Blood Count 37.8 T/CUMM (4-12)
[2021-10-05 05:48] LABS: Calcium 8.6 MG/DL (8.5-10.1); Osmolality,Calculated 303.3 MOS/KG (273-304); Potassium 3.9 MMOL/L (3.5-5.1)
[2021-10-05 06:00] LABS: Band Neutrophils 6 % (0-10); Hypochromia 1+; Lymphocytes 6 % (20-55); Microcytosis Slight; Myelocytes 1 %; Target Cells Slight; Total Cells Counted 100
[2021-10-05] MEDS: OXYBUTYNIN XL 15 MG TABLET PO SCH (08:46)
[2021-10-05] MEDS: GABAPENTIN 100 MG CAPSULE PO SCH (08:46)
[2021-10-05] MEDS: CHOLECALCIFEROL 5,000 UNIT TABLET PO SCH (08:46)
[2021-10-05] MEDS: DOCUSATE SODIUM 100 MG CAPSULE PO SCH ×2 (08:46→21:46)
[2021-10-05] MEDS: MEGESTROL 40 MG TABLET PO SCH (08:47)
[2021-10-05] MEDS: ALPRAZolam 0.25 MG TABLET PO SCH ×2 (08:47→21:46)
[2021-10-05] MEDS: POLYETHYLENE GLYCOL POWDER 17 GM PACK PO SCH (08:47)
[2021-10-05] MEDS: ASCORBIC ACID 500 MG TABLET PO SCH (08:47)
[2021-10-05] MEDS: MULTIVITAMIN (CENTRUM) TABLET PO SCH (08:47)
[2021-10-05] MEDS: MENTHOL/ZINC OXIDE OINT 71 GM JAR TOP SCH ×2 (08:48→21:47)
[2021-10-05] MEDS: LACTULOSE 20 GM/30 ML UDCUP PO SCH ×3 (11:21→17:40)
[2021-10-05] MEDS: FLUCONAZOLE INJ 200 MG/100 ML PREMIX IV SCH (14:54)
[2021-10-05] MEDS ORDERED: FUROSEMIDE 20 MG/2 ML VIAL IV ONE (15:41)
[2021-10-05 15:56] LABS: Arterial Base Excess iSTAT -3 MMOL/L (-2.5-2.5); Arterial Bicarbonate iSTAT 21.7 MMOL/L (20-26); Arterial O2 Saturation iSTAT 97 % (95-100); Arterial PCO2 iSTAT 36 MM HG (35-48); Arterial PO2 iSTAT 91 MM HG (80-95); Arterial Total CO2 iSTAT 23 MMO/L (23-27); Arterial pH iSTAT 7.394 (7.35-7.45)
[2021-10-05] MEDS ORDERED: VANCOMYCIN INJ 2,000 MG in SODIUM CHLORIDE 0.9% 500 ML IV PRN (16:10)
[2021-10-05] MEDS ORDERED: VANCOMYCIN INJ 2,000 MG in SODIUM CHLORIDE 0.9% 500 ML IV ONE (17:00)
[2021-10-05] MEDS: FAMOTIDINE 20 MG/2 ML VIAL IV SCH (22:55)
[2021-10-06] MEDS: INSULIN REGULAR 100 UNIT/ML SUBCUT SCH ×4 (01:05→17:49)
[2021-10-06] MEDS: LACTULOSE 20 GM/30 ML UDCUP PO SCH ×3 (01:05→17:49)
[2021-10-06 05:15] LABS: Basophils # 0.2 10*3/uL (0.0-0.2); Basophils % 0.4 % (0.0-0.8); Eosinophils % 0.1 % (0.00-10.9); Hematocrit 29.5 VOL% (35.7-47.0); Hemoglobin 9.2 GM/DL (12.0-16.0); Immature Granulocytes % 3.6 %; Immature Granulocytes Absolute 1.53 #; Lymphocytes # 1.4 10*3/uL (1.4-4.0); Lymphocytes % 3.3 % (21.3-54.2); Mean Corpuscular HGB Conc 31.2 GM/DL (32-36); Mean Corpuscular Volume 92.5 FL (87-102); Mean Platelet Volume 11.5 FL (9.6-12.0); Monocytes # 1.4 10*3/uL (0.11-0.8); Monocytes % 3.2 % (1.7-12.7); Neutrophils % 89.4 % (38.7-73.9); Platelet Count 265 T/CUMM (130-400); Red Blood Count 3.19 MC/CUMM (3.8-5.5); Red Cell Distribution Width 16.2 % (9.3-17.3)
[2021-10-06 05:16] LABS: White Blood Count 42.8 T/CUMM (4-12)
[2021-10-06 05:30] LABS: Calcium 8.8 MG/DL (8.5-10.1); Osmolality,Calculated 304.5 MOS/KG (273-304); Potassium 4.3 MMOL/L (3.5-5.1)
[2021-10-06 05:37] LABS: Eosinophils 1 % (0-10); Lymphocytes 2 % (20-55); Platelet Estimate Normal; Target Cells Few; Total Cells Counted 100
[2021-10-06] MEDS: MEROPENEM 500 MG in SODIUM CHLORIDE 0.9% 100 ML IV SCH ×2 (05:54→16:34)
[2021-10-06] MEDS: MULTIVITAMIN (CENTRUM) TABLET PO SCH (11:00)
[2021-10-06] MEDS: MENTHOL/ZINC OXIDE OINT 71 GM JAR TOP SCH ×2 (11:00→21:22)
[2021-10-06] MEDS: DOCUSATE SODIUM 100 MG CAPSULE PO SCH ×2 (11:00→21:22)
[2021-10-06] MEDS: POLYETHYLENE GLYCOL POWDER 17 GM PACK PO SCH (11:00)
[2021-10-06] MEDS: OXYBUTYNIN XL 15 MG TABLET PO SCH (11:00)
[2021-10-06] MEDS: CHOLECALCIFEROL 5,000 UNIT TABLET PO SCH (11:01)
[2021-10-06] MEDS: ALPRAZolam 0.25 MG TABLET PO SCH ×2 (11:01→21:22)
[2021-10-06] MEDS: ASCORBIC ACID 500 MG TABLET PO SCH (11:01)
[2021-10-06] MEDS: FLUCONAZOLE INJ 200 MG/100 ML PREMIX IV SCH (14:35)
[2021-10-06] MEDS: FAMOTIDINE 20 MG/2 ML VIAL IV SCH (21:57)
[2021-10-07] MEDS: INSULIN REGULAR 100 UNIT/ML SUBCUT SCH ×5 (00:11→23:58)
[2021-10-07] MEDS: LACTULOSE 20 GM/30 ML UDCUP PO SCH ×3 (01:50→19:36)
[2021-10-07] MEDS ORDERED: SODIUM CHLORIDE 0.45% 1,000 ML IV SCH (04:00)
[2021-10-07] MEDS: MEROPENEM 500 MG in SODIUM CHLORIDE 0.9% 100 ML IV SCH ×2 (04:42→17:45)
[2021-10-07 05:51] LABS: Basophils # 0.2 10*3/uL (0.0-0.2); Basophils % 0.4 % (0.0-0.8); Hematocrit 29.3 VOL% (35.7-47.0); Hemoglobin 9.2 GM/DL (12.0-16.0); Immature Granulocytes % 2.7 %; Immature Granulocytes Absolute 1.22 #; Lymphocytes # 1.1 10*3/uL (1.4-4.0); Lymphocytes % 2.4 % (21.3-54.2); Mean Corpuscular HGB Conc 31.4 GM/DL (32-36); Mean Corpuscular Volume 92.1 FL (87-102); Mean Platelet Volume 11.6 FL (9.6-12.0); Monocytes # 1.3 10*3/uL (0.11-0.8); Monocytes % 2.9 % (1.7-12.7); Neutrophils % 91.6 % (38.7-73.9); Platelet Count 308 T/CUMM (130-400); Red Blood Count 3.18 MC/CUMM (3.8-5.5); Red Cell Distribution Width 16.2 % (9.3-17.3)
[2021-10-07 05:57] LABS: White Blood Count 45.3 T/CUMM (4-12)
[2021-10-07 06:04] LABS: Calcium 8.6 MG/DL (8.5-10.1); Osmolality,Calculated 309.3 MOS/KG (273-304); Potassium 4.4 MMOL/L (3.5-5.1)
[2021-10-07 06:43] LABS: Anisocytosis Slight; Band Neutrophils 4 % (0-10); Lymphocytes 3 % (20-55); Platelet Estimate Normal; Total Cells Counted 100
[2021-10-07 06:44] LABS: Hypochromia Slight; Macrocytosis 1+
[2021-10-07] MEDS: MULTIVITAMIN (CENTRUM) TABLET PO SCH (09:28)
[2021-10-07] MEDS: DOCUSATE SODIUM 100 MG CAPSULE PO SCH ×2 (09:29→21:03)
[2021-10-07] MEDS: POLYETHYLENE GLYCOL POWDER 17 GM PACK PO SCH (09:30)
[2021-10-07] MEDS: OXYBUTYNIN XL 15 MG TABLET PO SCH (09:30)
[2021-10-07] MEDS: ASCORBIC ACID 500 MG TABLET PO SCH (09:30)
[2021-10-07] MEDS: ALPRAZolam 0.25 MG TABLET PO SCH ×2 (09:30→21:03)
[2021-10-07] MEDS: CHOLECALCIFEROL 5,000 UNIT TABLET PO SCH (09:32)
[2021-10-07] MEDS: MENTHOL/ZINC OXIDE OINT 71 GM JAR TOP SCH ×2 (11:54→21:03)
[2021-10-07] MEDS ORDERED: LACTATED RINGERS 1,000 ML IV SCH (15:30)
[2021-10-07] MEDS: FLUCONAZOLE INJ 200 MG/100 ML PREMIX IV SCH ×2 (15:39→15:45)
[2021-10-07] MEDS ORDERED: INSULIN GLARGINE 100 UNIT/ML SUBCUT SCH (21:00)
[2021-10-07] MEDS: FAMOTIDINE 20 MG/2 ML VIAL IV SCH (21:38)
[2021-10-07] MEDS: INSULIN GLARGINE 100 UNIT/ML SUBCUT SCH (22:32)
[2021-10-08] MEDS: LACTULOSE 20 GM/30 ML UDCUP PO SCH ×3 (02:02→18:12)
[2021-10-08] MEDS: MEROPENEM 500 MG in SODIUM CHLORIDE 0.9% 100 ML IV SCH ×2 (04:01→17:48)
[2021-10-08] MEDS: INSULIN REGULAR 100 UNIT/ML SUBCUT SCH ×3 (06:27→18:12)
[2021-10-08] MEDS: POLYETHYLENE GLYCOL POWDER 17 GM PACK PO SCH (10:13)
[2021-10-08] MEDS: ALPRAZolam 0.25 MG TABLET PO SCH ×2 (10:15→21:15)
[2021-10-08] MEDS: OXYBUTYNIN XL 15 MG TABLET PO SCH (10:16)
[2021-10-08] MEDS: MULTIVITAMIN (CENTRUM) TABLET PO SCH (10:17)
[2021-10-08] MEDS: ASCORBIC ACID 500 MG TABLET PO SCH (10:20)
[2021-10-08] MEDS: DOCUSATE SODIUM 100 MG CAPSULE PO SCH ×2 (10:22→21:15)
[2021-10-08] MEDS: CHOLECALCIFEROL 5,000 UNIT TABLET PO SCH (10:25)
[2021-10-08] MEDS: MENTHOL/ZINC OXIDE OINT 71 GM JAR TOP SCH ×2 (10:25→21:16)
[2021-10-08] MEDS: FLUCONAZOLE INJ 200 MG/100 ML PREMIX IV SCH (14:50)
[2021-10-08] MEDS: FAMOTIDINE 20 MG/2 ML VIAL IV SCH (20:08)
[2021-10-08] MEDS: INSULIN GLARGINE 100 UNIT/ML SUBCUT SCH (21:34)
[2021-10-09] MEDS: INSULIN REGULAR 100 UNIT/ML SUBCUT SCH ×5 (00:26→23:59)
[2021-10-09] MEDS: LACTULOSE 20 GM/30 ML UDCUP PO SCH ×3 (01:31→18:55)
[2021-10-09 05:57] LABS: Basophils # 0.1 10*3/uL (0.0-0.2); Basophils % 0.2 % (0.0-0.8); Eosinophils % 0.1 % (0.00-10.9); Hematocrit 25.8 VOL% (35.7-47.0); Hemoglobin 7.7 GM/DL (12.0-16.0); Immature Granulocytes % 1.7 %; Immature Granulocytes Absolute 0.54 #; Lymphocytes % 3.1 % (21.3-54.2); Mean Corpuscular HGB Conc 29.8 GM/DL (32-36); Mean Corpuscular Volume 95.6 FL (87-102); Mean Platelet Volume 11.4 FL (9.6-12.0); Monocytes # 1.2 10*3/uL (0.11-0.8); Neutrophils % 90.9 % (38.7-73.9); Platelet Count 305 T/CUMM (130-400); Red Cell Distribution Width 16.4 % (9.3-17.3)
[2021-10-09 06:13] LABS: Calcium 8.4 MG/DL (8.5-10.1); Osmolality,Calculated 311.8 MOS/KG (273-304); Potassium 4.6 MMOL/L (3.5-5.1)
[2021-10-09 06:24] LABS: Eosinophils 1 % (0-10); Lymphocytes 2 % (20-55); Nucleated Red Blood Cells 1 /100 WBC (0-5); Platelet Estimate Adequate; Total Cells Counted 100
[2021-10-09 06:25] LABS: Hypochromia Slight
[2021-10-09] MEDS: ASCORBIC ACID 500 MG TABLET PO SCH (11:14)
[2021-10-09] MEDS: DOCUSATE SODIUM 100 MG CAPSULE PO SCH ×2 (11:14→21:50)
[2021-10-09] MEDS: MULTIVITAMIN (CENTRUM) TABLET PO SCH (11:14)
[2021-10-09] MEDS: POLYETHYLENE GLYCOL POWDER 17 GM PACK PO SCH (11:15)
[2021-10-09] MEDS: ALPRAZolam 0.25 MG TABLET PO SCH ×2 (11:16→21:50)
[2021-10-09] MEDS: OXYBUTYNIN XL 15 MG TABLET PO SCH (11:16)
[2021-10-09] MEDS: MENTHOL/ZINC OXIDE OINT 71 GM JAR TOP SCH ×2 (11:18→21:50)
[2021-10-09] MEDS: FLUCONAZOLE INJ 200 MG/100 ML PREMIX IV SCH (15:33)
[2021-10-09] MEDS: CHOLECALCIFEROL 5,000 UNIT TABLET PO SCH (15:35)
[2021-10-09] MEDS ORDERED: VANCOMYCIN INJ 2,000 MG in SODIUM CHLORIDE 0.9% 500 ML IV ONE (17:00)
[2021-10-09] MEDS: INSULIN GLARGINE 100 UNIT/ML SUBCUT SCH (21:50)
[2021-10-09] MEDS: FAMOTIDINE 20 MG/2 ML VIAL IV SCH (22:18)
[2021-10-10] MEDS: LACTULOSE 20 GM/30 ML UDCUP PO SCH ×2 (01:25→09:45)
[2021-10-10 05:26] LABS: Basophils # 0.1 10*3/uL (0.0-0.2); Basophils % 0.3 % (0.0-0.8); Eosinophils # 0.1 10*3/uL (0.0-0.87); Eosinophils % 0.3 % (0.00-10.9); Hematocrit 24.6 VOL% (35.7-47.0); Hemoglobin 7.1 GM/DL (12.0-16.0); Immature Granulocytes % 1.1 %; Immature Granulocytes Absolute 0.31 #; Lymphocytes # 1.1 10*3/uL (1.4-4.0); Lymphocytes % 4.1 % (21.3-54.2); Mean Corpuscular HGB Conc 28.9 GM/DL (32-36); Mean Corpuscular Volume 97.6 FL (87-102); Mean Platelet Volume 11.1 FL (9.6-12.0); Monocytes # 1.3 10*3/uL (0.11-0.8); Monocytes % 4.7 % (1.7-12.7); Neutrophils % 89.5 % (38.7-73.9); Platelet Count 314 T/CUMM (130-400); Red Blood Count 2.52 MC/CUMM (3.8-5.5); Red Cell Distribution Width 16.8 % (9.3-17.3); White Blood Count 27.3 T/CUMM (4-12)
[2021-10-10 05:49] LABS: Calcium 8.2 MG/DL (8.5-10.1); Osmolality,Calculated 309.4 MOS/KG (273-304); Potassium 4.8 MMOL/L (3.5-5.1)
[2021-10-10 06:01] LABS: Band Neutrophils 1 % (0-10); Lymphocytes 1 % (20-55); Total Cells Counted 100
[2021-10-10 06:02] LABS: Hypochromia 1+; Macrocytosis 1+; Target Cells Few
[2021-10-10] MEDS: INSULIN REGULAR 100 UNIT/ML SUBCUT SCH ×4 (06:02→23:59)
[2021-10-10 06:03] LABS: Platelet Estimate Normal
[2021-10-10] MEDS: MULTIVITAMIN (CENTRUM) TABLET PO SCH (09:43)
[2021-10-10] MEDS: OXYBUTYNIN XL 15 MG TABLET PO SCH (09:43)
[2021-10-10] MEDS: ASCORBIC ACID 500 MG TABLET PO SCH (09:43)
[2021-10-10] MEDS: CHOLECALCIFEROL 5,000 UNIT TABLET PO SCH (09:43)
[2021-10-10] MEDS: ALPRAZolam 0.25 MG TABLET PO SCH ×2 (09:43→20:28)
[2021-10-10] MEDS: POLYETHYLENE GLYCOL POWDER 17 GM PACK PO SCH (09:44)
[2021-10-10] MEDS: DOCUSATE SODIUM 100 MG CAPSULE PO SCH ×2 (09:44→20:28)
[2021-10-10] MEDS: MENTHOL/ZINC OXIDE OINT 71 GM JAR TOP SCH ×2 (09:45→20:29)
[2021-10-10] MEDS ORDERED: SODIUM CHLORIDE 0.9% 1,000 ML IV PRN (10:17)
[2021-10-10] MEDS: FLUCONAZOLE INJ 200 MG/100 ML PREMIX IV SCH (17:42)
[2021-10-10 18:14] LABS: Basophils # 0.1 10*3/uL (0.0-0.2); Basophils % 0.3 % (0.0-0.8); Eosinophils % 0.1 % (0.00-10.9); Hematocrit 27.4 VOL% (35.7-47.0); Hemoglobin 8.3 GM/DL (12.0-16.0); Immature Granulocytes % 0.9 %; Immature Granulocytes Absolute 0.25 #; Lymphocytes % 3.7 % (21.3-54.2); Mean Corpuscular HGB Conc 30.3 GM/DL (32-36); Mean Corpuscular Volume 92.6 FL (87-102); Mean Platelet Volume 10.7 FL (9.6-12.0); Monocytes # 1.1 10*3/uL (0.11-0.8); Monocytes % 4.2 % (1.7-12.7); Neutrophils % 90.8 % (38.7-73.9); Platelet Count 300 T/CUMM (130-400); Red Blood Count 2.96 MC/CUMM (3.8-5.5); Red Cell Distribution Width 17.9 % (9.3-17.3); White Blood Count 26.7 T/CUMM (4-12)
[2021-10-10 18:45] LABS: Band Neutrophils 4 % (0-10); Hypochromia Slight; Lymphocytes 2 % (20-55); Platelet Estimate Increased
[2021-10-10 18:46] LABS: Total Cells Counted 100
[2021-10-10] MEDS: FAMOTIDINE 20 MG/2 ML VIAL IV SCH (20:18)
[2021-10-10] MEDS: INSULIN GLARGINE 100 UNIT/ML SUBCUT SCH (20:29)
[2021-10-10] MEDS ORDERED: LACTULOSE 20 GM/30 ML UDCUP PO SCH (21:00)
[2021-10-11] MEDS: INSULIN REGULAR 100 UNIT/ML SUBCUT SCH ×3 (05:25→17:52)
[2021-10-11 06:10] LABS: Basophils # 0.1 10*3/uL (0.0-0.2); Basophils % 0.3 % (0.0-0.8); Eosinophils % 0.1 % (0.00-10.9); Hematocrit 27.6 VOL% (35.7-47.0); Hemoglobin 8.3 GM/DL (12.0-16.0); Immature Granulocytes % 1.2 %; Immature Granulocytes Absolute 0.33 #; Lymphocytes # 1.1 10*3/uL (1.4-4.0); Lymphocytes % 4.1 % (21.3-54.2); Mean Corpuscular HGB Conc 30.1 GM/DL (32-36); Mean Corpuscular Volume 94.8 FL (87-102); Mean Platelet Volume 11.1 FL (9.6-12.0); Monocytes # 1.2 10*3/uL (0.11-0.8); Monocytes % 4.5 % (1.7-12.7); Neutrophils % 89.8 % (38.7-73.9); Platelet Count 323 T/CUMM (130-400); Red Blood Count 2.91 MC/CUMM (3.8-5.5); White Blood Count 26.7 T/CUMM (4-12)
[2021-10-11 06:34] LABS: Calcium 8.3 MG/DL (8.5-10.1); Osmolality,Calculated 311.3 MOS/KG (273-304); Potassium 4.5 MMOL/L (3.5-5.1)
[2021-10-11 06:55] LABS: Band Neutrophils 3 % (0-10); Hypochromia 1+; Lymphocytes 4 % (20-55); Total Cells Counted 100
[2021-10-11 06:56] LABS: Macrocytosis 1+; Platelet Estimate Normal
[2021-10-11] MEDS ORDERED: SODIUM CHLORIDE 0.9% 1,000 ML IV PRN (07:57)
[2021-10-11] MEDS: ALPRAZolam 0.25 MG TABLET PO SCH ×2 (09:13→20:58)
[2021-10-11] MEDS: OXYBUTYNIN XL 15 MG TABLET PO SCH (09:13)
[2021-10-11] MEDS: CHOLECALCIFEROL 5,000 UNIT TABLET PO SCH (09:13)
[2021-10-11] MEDS: MULTIVITAMIN (CENTRUM) TABLET PO SCH (09:13)
[2021-10-11] MEDS: ASCORBIC ACID 500 MG TABLET PO SCH (09:13)
[2021-10-11] MEDS: MENTHOL/ZINC OXIDE OINT 71 GM JAR TOP SCH ×2 (09:14→20:58)
[2021-10-11] MEDS: POLYETHYLENE GLYCOL POWDER 17 GM PACK PO SCH (09:14)
[2021-10-11] MEDS: DOCUSATE SODIUM 100 MG CAPSULE PO SCH ×2 (09:14→20:58)
[2021-10-11] MEDS ORDERED: traMADol 50 MG TABLET PO PRN (11:34)
[2021-10-11] MEDS: SIMETHICONE CHEW 125 MG TABLET PO SCH ×2 (17:53→21:30)
[2021-10-11] MEDS: INSULIN GLARGINE 100 UNIT/ML SUBCUT SCH (21:53)
[2021-10-11] MEDS: FAMOTIDINE 20 MG/2 ML VIAL IV SCH (21:58)
[2021-10-12] MEDS: INSULIN REGULAR 100 UNIT/ML SUBCUT SCH ×4 (00:41→17:53)
[2021-10-12 05:55] LABS: Basophils # 0.1 10*3/uL (0.0-0.2); Basophils % 0.4 % (0.0-0.8); Eosinophils % 0.1 % (0.00-10.9); Hematocrit 33.4 VOL% (35.7-47.0); Hemoglobin 9.8 GM/DL (12.0-16.0); Immature Granulocytes Absolute 0.22 #; Lymphocytes # 1.2 10*3/uL (1.4-4.0); Lymphocytes % 5.1 % (21.3-54.2); Mean Corpuscular HGB Conc 29.3 GM/DL (32-36); Mean Corpuscular Volume 94.9 FL (87-102); Mean Platelet Volume 10.9 FL (9.6-12.0); Monocytes # 1.2 10*3/uL (0.11-0.8); Monocytes % 5.2 % (1.7-12.7); Neutrophils % 88.2 % (38.7-73.9); Platelet Count 296 T/CUMM (130-400); Red Blood Count 3.52 MC/CUMM (3.8-5.5); Red Cell Distribution Width 18.4 % (9.3-17.3); White Blood Count 23.1 T/CUMM (4-12)
[2021-10-12 06:07] LABS: Calcium 8.5 MG/DL (8.5-10.1); Osmolality,Calculated 311.1 MOS/KG (273-304)
[2021-10-12 06:24] LABS: Hypochromia Slight; Lymphocytes 4 % (20-55); Microcytosis Slight; Platelet Estimate Adequate; Total Cells Counted 100
[2021-10-12] MEDS ORDERED: MAGNESIUM SULF RIDER 2 GM/50 ML PREMIX IV ONE (08:10)
[2021-10-12] MEDS ORDERED: CEFEPIME 2,000 MG in SODIUM CHLORIDE 0.9% 100 ML IV SCH (08:30)
[2021-10-12] MEDS: SODIUM CHLORIDE 0.45% 1,000 ML IV SCH (09:28)
[2021-10-12] MEDS: ALPRAZolam 0.25 MG TABLET PO SCH ×2 (09:29→21:52)
[2021-10-12] MEDS: DOCUSATE SODIUM 100 MG CAPSULE PO SCH ×2 (09:29→21:51)
[2021-10-12] MEDS: MULTIVITAMIN (CENTRUM) TABLET PO SCH (09:29)
[2021-10-12] MEDS: ASCORBIC ACID 500 MG TABLET PO SCH (09:29)
[2021-10-12] MEDS: SIMETHICONE CHEW 125 MG TABLET PO SCH ×4 (09:29→21:52)
[2021-10-12] MEDS: OXYBUTYNIN XL 15 MG TABLET PO SCH (09:29)
[2021-10-12] MEDS: CHOLECALCIFEROL 5,000 UNIT TABLET PO SCH (09:30)
[2021-10-12] MEDS: MENTHOL/ZINC OXIDE OINT 71 GM JAR TOP SCH ×2 (09:32→21:50)
[2021-10-12] MEDS: POLYETHYLENE GLYCOL POWDER 17 GM PACK PO SCH (09:32)
[2021-10-12] MEDS: MEROPENEM 1,000 MG in SODIUM CHLORIDE 0.9% 100 ML IV SCH ×2 (11:40→18:10)
[2021-10-12] MEDS: VANCOMYCIN INJ 2,000 MG in SODIUM CHLORIDE 0.9% 500 ML IV SCH (14:38)
[2021-10-12] MEDS: INSULIN GLARGINE 100 UNIT/ML SUBCUT SCH (21:51)
[2021-10-13] MEDS: SODIUM CHLORIDE 0.45% 1,000 ML IV SCH (01:24)
[2021-10-13] MEDS: INSULIN REGULAR 100 UNIT/ML SUBCUT SCH ×4 (01:25→17:53)
[2021-10-13] MEDS: MEROPENEM 1,000 MG in SODIUM CHLORIDE 0.9% 100 ML IV SCH ×3 (03:06→18:01)
[2021-10-13] MEDS: FAMOTIDINE 20 MG/2 ML VIAL IV SCH ×2 (03:09→21:41)
[2021-10-13 06:21] LABS: Basophils # 0.1 10*3/uL (0.0-0.2); Basophils % 0.4 % (0.0-0.8); Eosinophils # 0.1 10*3/uL (0.0-0.87); Eosinophils % 0.2 % (0.00-10.9); Hemoglobin 9.9 GM/DL (12.0-16.0); Immature Granulocytes % 1.1 %; Immature Granulocytes Absolute 0.23 #; Lymphocytes # 1.1 10*3/uL (1.4-4.0); Lymphocytes % 4.8 % (21.3-54.2); Mean Corpuscular HGB Conc 28.6 GM/DL (32-36); Mean Corpuscular Volume 98.6 FL (87-102); Mean Platelet Volume 10.7 FL (9.6-12.0); Monocytes # 1.3 10*3/uL (0.11-0.8); Monocytes % 5.8 % (1.7-12.7); Neutrophils % 87.7 % (38.7-73.9); Platelet Count 299 T/CUMM (130-400); Red Blood Count 3.51 MC/CUMM (3.8-5.5); Red Cell Distribution Width 17.9 % (9.3-17.3); White Blood Count 21.7 T/CUMM (4-12)
[2021-10-13 06:22] LABS: Calcium 8.3 MG/DL (8.5-10.1); Potassium 5.1 MMOL/L (3.5-5.1)
[2021-10-13 06:29] LABS: Hematocrit 34.6 VOL% (35.7-47.0)
[2021-10-13 06:43] LABS: Eosinophils 2 % (0-10); Lymphocytes 2 % (20-55); Platelet Estimate Adequate; Total Cells Counted 100
[2021-10-13] MEDS ORDERED: DEXTROSE 5% NACL 0.45% 1,000 ML IV SCH (08:00)
[2021-10-13] MEDS ORDERED: MAGNESIUM SULF RIDER 4 GM/100 ML PREMIX IV ONE (08:00)
[2021-10-13] MEDS: OXYBUTYNIN XL 15 MG TABLET PO SCH (09:12)
[2021-10-13] MEDS: SIMETHICONE CHEW 125 MG TABLET PO SCH ×4 (09:12→21:41)
[2021-10-13] MEDS: MULTIVITAMIN (CENTRUM) TABLET PO SCH (09:12)
[2021-10-13] MEDS: DOCUSATE SODIUM 100 MG CAPSULE PO SCH ×2 (09:12→21:41)
[2021-10-13] MEDS: CHOLECALCIFEROL 5,000 UNIT TABLET PO SCH (09:12)
[2021-10-13] MEDS: ASCORBIC ACID 500 MG TABLET PO SCH (09:12)
[2021-10-13] MEDS: ALPRAZolam 0.25 MG TABLET PO SCH (09:13)
[2021-10-13] MEDS: POLYETHYLENE GLYCOL POWDER 17 GM PACK PO SCH (09:14)
[2021-10-13] MEDS: MENTHOL/ZINC OXIDE OINT 71 GM JAR TOP SCH ×2 (09:14→21:43)
[2021-10-13 17:28] LABS: Alanine Aminotransferase < 9 U/L (13-56); Albumin 1.5 G/DL (3.4-5.0); Alkaline Phosphatase 103 U/L (45-117); Aspartate Amino Transferase 11 U/L (0-37); Bilirubin,Total < 0.39 MG/DL (0.20-1.00); Blood Urea Nitrogen 39 MG/DL (7-18); Calcium 8.9 MG/DL (8.5-10.1); Carbon Dioxide 24 MMOL/L (21-32); Chloride 117 MMOL/L (98-107); Glucose 214 MG/DL (74-106); Osmolality,Calculated 306.4 MOS/KG (273-304); Potassium 5.4 MMOL/L (3.5-5.1); Sodium 147 MMOL/L (136-145); Total Protein 7.7 G/DL (6.4-8.2)
[2021-10-13] MEDS ORDERED: ALBUMIN 25% 25 GM/100 ML VIAL IV ONE ×2 (17:30→19:30)
[2021-10-13 17:37] LABS: Basophils # 0.1 10*3/uL (0.0-0.2); Basophils % 0.5 % (0.0-0.8); Eosinophils % 0.1 % (0.00-10.9); Hematocrit 35.9 VOL% (35.7-47.0); Hemoglobin 10.2 GM/DL (12.0-16.0); Immature Granulocytes % 1.3 %; Immature Granulocytes Absolute 0.27 #; Lymphocytes # 0.8 10*3/uL (1.4-4.0); Lymphocytes % 3.7 % (21.3-54.2); Mean Corpuscular HGB Conc 28.4 GM/DL (32-36); Mean Corpuscular Volume 98.9 FL (87-102); Mean Platelet Volume 10.7 FL (9.6-12.0); Monocytes % 4.8 % (1.7-12.7); Neutrophils % 89.6 % (38.7-73.9); Platelet Count 317 T/CUMM (130-400); Red Blood Count 3.63 MC/CUMM (3.8-5.5); Red Cell Distribution Width 17.8 % (9.3-17.3); White Blood Count 20.2 T/CUMM (4-12)
[2021-10-13 18:22] LABS: Lymphocytes 2 % (20-55); Total Cells Counted 100
[2021-10-13 18:23] LABS: Anisocytosis Slight
[2021-10-13] MEDS ORDERED: SODIUM POLYSTYRENE SULFATE 15 GM/60 ML BOTTLE PO STA (18:23)
[2021-10-13 18:27] LABS: Platelet Estimate Adequate
[2021-10-13 18:57] LABS: % Iron Saturation 21.4 % (18-50)
[2021-10-13 19:09] LABS: Folate 16.18 NG/ML (5.38-24.0)
[2021-10-13] MEDS: INSULIN GLARGINE 100 UNIT/ML SUBCUT SCH (21:41)
[2021-10-14] MEDS: INSULIN REGULAR 100 UNIT/ML SUBCUT SCH ×4 (00:48→17:33)
[2021-10-14] MEDS: MEROPENEM 1,000 MG in SODIUM CHLORIDE 0.9% 100 ML IV SCH (00:48)
[2021-10-14 06:29] LABS: Calcium 8.6 MG/DL (8.5-10.1); Osmolality,Calculated 307.1 MOS/KG (273-304); Potassium 5.3 MMOL/L (3.5-5.1)
[2021-10-14 06:39] LABS: Basophils # 0.1 10*3/uL (0.0-0.2); Basophils % 0.4 % (0.0-0.8); Eosinophils % 0.1 % (0.00-10.9); Hematocrit 32.7 VOL% (35.7-47.0); Immature Granulocytes % 2.1 %; Immature Granulocytes Absolute 0.39 #; Lymphocytes % 5.4 % (21.3-54.2); Mean Corpuscular HGB Conc 28.1 GM/DL (32-36); Mean Platelet Volume 10.6 FL (9.6-12.0); Monocytes # 1.2 10*3/uL (0.11-0.8); Monocytes % 6.3 % (1.7-12.7); Neutrophils % 85.7 % (38.7-73.9); Platelet Count 294 T/CUMM (130-400); Red Blood Count 3.27 MC/CUMM (3.8-5.5); Red Cell Distribution Width 17.7 % (9.3-17.3); White Blood Count 18.4 T/CUMM (4-12)
[2021-10-14 06:40] LABS: Hemoglobin 9.2 GM/DL (12.0-16.0)
[2021-10-14 06:44] LABS: Hypochromia Slight; Lymphocytes 5 % (20-55); Platelet Estimate Normal; Total Cells Counted 100
[2021-10-14] MEDS: DOCUSATE SODIUM 100 MG CAPSULE PO SCH ×2 (08:44→21:38)
[2021-10-14] MEDS: MULTIVITAMIN (CENTRUM) TABLET PO SCH (08:44)
[2021-10-14] MEDS: SIMETHICONE CHEW 125 MG TABLET PO SCH ×4 (08:44→22:46)
[2021-10-14] MEDS: OXYBUTYNIN XL 15 MG TABLET PO SCH (08:44)
[2021-10-14] MEDS: POLYETHYLENE GLYCOL POWDER 17 GM PACK PO SCH (08:44)
[2021-10-14] MEDS: MENTHOL/ZINC OXIDE OINT 71 GM JAR TOP SCH ×2 (08:44→22:44)
[2021-10-14] MEDS: ASCORBIC ACID 500 MG TABLET PO SCH (08:45)
[2021-10-14] MEDS: CHOLECALCIFEROL 5,000 UNIT TABLET PO SCH (08:45)
[2021-10-14] MEDS: MEROPENEM 500 MG in SODIUM CHLORIDE 0.9% 100 ML IV SCH ×2 (09:56→17:19)
[2021-10-14] MEDS: LEVALBUTEROL 1.25 MG/3 ML NEB RESP TX SCH ×2 (13:55→19:50)
[2021-10-14] MEDS: DEXTROSE 5% NACL 0.45% 1,000 ML IV SCH (14:13)
[2021-10-14] MEDS: INSULIN GLARGINE 100 UNIT/ML SUBCUT SCH (20:54)
[2021-10-14] MEDS: FAMOTIDINE 20 MG/2 ML VIAL IV SCH (23:44)
[2021-10-15] MEDS: MEROPENEM 500 MG in SODIUM CHLORIDE 0.9% 100 ML IV SCH ×3 (01:05→17:08)
[2021-10-15] MEDS: INSULIN REGULAR 100 UNIT/ML SUBCUT SCH ×4 (01:43→19:32)
[2021-10-15] MEDS: LEVALBUTEROL 1.25 MG/3 ML NEB RESP TX SCH ×4 (02:04→19:01)
[2021-10-15] MEDS: DEXTROSE 5% NACL 0.45% 1,000 ML IV SCH (03:45)
[2021-10-15 05:54] LABS: Basophils # 0.1 10*3/uL (0.0-0.2); Basophils % 0.7 % (0.0-0.8); Calcium 8.5 MG/DL (8.5-10.1); Eosinophils % 0.2 % (0.00-10.9); Hematocrit 32.9 VOL% (35.7-47.0); Immature Granulocytes % 0.8 %; Immature Granulocytes Absolute 0.14 #; Lymphocytes # 1.1 10*3/uL (1.4-4.0); Lymphocytes % 6.1 % (21.3-54.2); Mean Corpuscular HGB Conc 26.7 GM/DL (32-36); Mean Corpuscular Volume 103.5 FL (87-102); Mean Platelet Volume 10.6 FL (9.6-12.0); Monocytes # 1.3 10*3/uL (0.11-0.8); Monocytes % 7.3 % (1.7-12.7); Neutrophils % 84.9 % (38.7-73.9); Osmolality,Calculated 314.7 MOS/KG (273-304); Platelet Count 287 T/CUMM (130-400); Red Blood Count 3.18 MC/CUMM (3.8-5.5); Red Cell Distribution Width 17.5 % (9.3-17.3)
[2021-10-15 06:00] LABS: Hemoglobin 8.8 GM/DL (12.0-16.0)
[2021-10-15] MEDS: OXYBUTYNIN XL 15 MG TABLET PO SCH (09:01)
[2021-10-15] MEDS: MENTHOL/ZINC OXIDE OINT 71 GM JAR TOP SCH ×2 (09:01→21:36)
[2021-10-15] MEDS: DOCUSATE SODIUM 100 MG CAPSULE PO SCH ×2 (09:01→21:36)
[2021-10-15] MEDS: MULTIVITAMIN (CENTRUM) TABLET PO SCH (09:01)
[2021-10-15] MEDS: POLYETHYLENE GLYCOL POWDER 17 GM PACK PO SCH (09:02)
[2021-10-15] MEDS: ASCORBIC ACID 500 MG TABLET PO SCH (09:02)
[2021-10-15] MEDS: CHOLECALCIFEROL 5,000 UNIT TABLET PO SCH (09:02)
[2021-10-15] MEDS: SIMETHICONE CHEW 125 MG TABLET PO SCH ×4 (09:02→21:39)
[2021-10-15] MEDS: DEXTROSE 5% 1,000 ML IV SCH ×2 (09:22→21:36)
[2021-10-15] MEDS: INSULIN GLARGINE 100 UNIT/ML SUBCUT SCH (21:35)
[2021-10-15] MEDS: FAMOTIDINE 20 MG/2 ML VIAL IV SCH (21:37)
[2021-10-16 00:27] LABS: Bacteria,Urine Moderate /HPF (Few); RBC,Urine 58 /HPF (0-4); Squamous Epithelial Cell,Urine Occasional /HPF (0-10)
[2021-10-16 00:28] LABS: Glucose,Urine (UA) Negative (Negative); Ketones,Urine Negative (Negative); Nitrite,Urine Negative (Negative); Protein,Urine 30 mg/dL (Negative); Urine Appearance Slightly Cloudy (Clear); Urine Color Yellow (Yellow); Urine Specific Gravity 1.025 (1.001-1.035); Urine pH 5.5 (4.5-8.0)
[2021-10-16 00:29] LABS: Bilirubin,Urine Negative (Negative); Blood, Urine Moderate mg/dL (Negative); Urine Urobilinogen 0.2 eU/dL (<2.0)
[2021-10-16] MEDS: INSULIN REGULAR 100 UNIT/ML SUBCUT SCH ×4 (00:52→17:40)
[2021-10-16] MEDS: MEROPENEM 500 MG in SODIUM CHLORIDE 0.9% 100 ML IV SCH ×3 (01:05→17:40)
[2021-10-16] MEDS: LEVALBUTEROL 1.25 MG/3 ML NEB RESP TX SCH ×4 (01:12→19:23)
[2021-10-16 06:25] LABS: Calcium 8.5 MG/DL (8.5-10.1); Osmolality,Calculated 303.1 MOS/KG (273-304); Potassium 4.4 MMOL/L (3.5-5.1)
[2021-10-16 06:45] LABS: Basophils # 0.1 10*3/uL (0.0-0.2); Basophils % 0.6 % (0.0-0.8); Eosinophils # 0.1 10*3/uL (0.0-0.87); Eosinophils % 0.8 % (0.00-10.9); Hematocrit 32.1 VOL% (35.7-47.0); Immature Granulocytes % 0.9 %; Immature Granulocytes Absolute 0.15 #; Lymphocytes % 5.8 % (21.3-54.2); Mean Corpuscular HGB Conc 27.7 GM/DL (32-36); Mean Corpuscular Volume 100.9 FL (87-102); Mean Platelet Volume 10.5 FL (9.6-12.0); Monocytes # 1.1 10*3/uL (0.11-0.8); Monocytes % 6.5 % (1.7-12.7); Neutrophils % 85.4 % (38.7-73.9); Platelet Count 274 T/CUMM (130-400); Red Blood Count 3.18 MC/CUMM (3.8-5.5); Red Cell Distribution Width 17.2 % (9.3-17.3); White Blood Count 17.4 T/CUMM (4-12)
[2021-10-16 06:47] LABS: Hemoglobin 8.9 GM/DL (12.0-16.0)
[2021-10-16] MEDS ORDERED: MAGNESIUM SULF RIDER 2 GM/50 ML PREMIX IV ONE (07:57)
[2021-10-16] MEDS: MENTHOL/ZINC OXIDE OINT 71 GM JAR TOP SCH ×2 (10:14→23:34)
[2021-10-16] MEDS: DOCUSATE SODIUM 100 MG CAPSULE PO SCH ×2 (10:29→21:25)
[2021-10-16] MEDS: ACETAMINOPHEN 325 MG TABLET PO PRN ×4 (10:30→23:34)
[2021-10-16] MEDS: SIMETHICONE CHEW 125 MG TABLET PO SCH ×4 (10:30→21:25)
[2021-10-16] MEDS: MULTIVITAMIN (CENTRUM) TABLET PO SCH (10:30)
[2021-10-16] MEDS: OXYBUTYNIN XL 15 MG TABLET PO SCH (10:30)
[2021-10-16] MEDS: CHOLECALCIFEROL 5,000 UNIT TABLET PO SCH (10:31)
[2021-10-16] MEDS: ASCORBIC ACID 500 MG TABLET PO SCH (10:32)
[2021-10-16] MEDS: POLYETHYLENE GLYCOL POWDER 17 GM PACK PO SCH (10:33)
[2021-10-16] MEDS: DEXTROSE 5% 1,000 ML IV SCH ×2 (10:48→23:34)
[2021-10-16] MEDS: VANCOMYCIN INJ 2,000 MG in SODIUM CHLORIDE 0.9% 500 ML IV SCH (14:29)
[2021-10-16] MEDS: MEGESTROL 40 MG TABLET PO SCH (21:25)
[2021-10-16] MEDS: FAMOTIDINE 20 MG/2 ML VIAL IV SCH (21:25)
[2021-10-16] MEDS: INSULIN GLARGINE 100 UNIT/ML SUBCUT SCH (21:25)
[2021-10-17] MEDS: LEVALBUTEROL 1.25 MG/3 ML NEB RESP TX SCH ×4 (00:15→19:44)
[2021-10-17] MEDS: INSULIN REGULAR 100 UNIT/ML SUBCUT SCH ×4 (00:24→18:20)
[2021-10-17] MEDS: MEROPENEM 500 MG in SODIUM CHLORIDE 0.9% 100 ML IV SCH ×3 (01:46→16:57)
[2021-10-17 06:22] LABS: Calcium 8.4 MG/DL (8.5-10.1); Osmolality,Calculated 295.6 MOS/KG (273-304); Potassium 4.1 MMOL/L (3.5-5.1)
[2021-10-17 06:27] LABS: INR 1.1; PT Patient Result 12.1 SECS (10.1-12.1); Partial Thromboplastin Time 33.6 SECS (23.7-32.9)
[2021-10-17 06:31] LABS: Basophils # 0.1 10*3/uL (0.0-0.2); Basophils % 0.4 % (0.0-0.8); Eosinophils # 0.1 10*3/uL (0.0-0.87); Eosinophils % 0.8 % (0.00-10.9); Hematocrit 30.5 VOL% (35.7-47.0); Immature Granulocytes Absolute 0.17 #; Lymphocytes # 1.1 10*3/uL (1.4-4.0); Lymphocytes % 6.5 % (21.3-54.2); Mean Corpuscular HGB Conc 28.9 GM/DL (32-36); Mean Corpuscular Volume 98.1 FL (87-102); Mean Platelet Volume 10.8 FL (9.6-12.0); Monocytes % 5.7 % (1.7-12.7); Neutrophils % 85.6 % (38.7-73.9); Platelet Count 275 T/CUMM (130-400); Red Blood Count 3.11 MC/CUMM (3.8-5.5); Red Cell Distribution Width 16.7 % (9.3-17.3); White Blood Count 16.7 T/CUMM (4-12)
[2021-10-17 06:32] LABS: Hemoglobin 8.8 GM/DL (12.0-16.0)
[2021-10-17] MEDS ORDERED: MAGNESIUM SULF INJ 3 GM in SODIUM CHLORIDE 0.9% 100 ML IV ONE (08:00)
[2021-10-17] MEDS: MENTHOL/ZINC OXIDE OINT 71 GM JAR TOP SCH ×2 (08:59→21:17)
[2021-10-17] MEDS: OXYBUTYNIN XL 15 MG TABLET PO SCH (08:59)
[2021-10-17] MEDS: DOCUSATE SODIUM 100 MG CAPSULE PO SCH ×2 (08:59→20:34)
[2021-10-17] MEDS: MEGESTROL 40 MG TABLET PO SCH ×2 (09:00→20:34)
[2021-10-17] MEDS: CHOLECALCIFEROL 5,000 UNIT TABLET PO SCH (09:00)
[2021-10-17] MEDS: ASCORBIC ACID 500 MG TABLET PO SCH (09:00)
[2021-10-17] MEDS: POLYETHYLENE GLYCOL POWDER 17 GM PACK PO SCH (09:00)
[2021-10-17] MEDS: SIMETHICONE CHEW 125 MG TABLET PO SCH ×4 (09:00→20:34)
[2021-10-17] MEDS: MULTIVITAMIN (CENTRUM) TABLET PO SCH (09:00)
[2021-10-17] MEDS: metroNIDAZOLE INJ 500 MG/100 ML PREMIX IV SCH ×2 (12:02→20:35)
[2021-10-17 12:21] LABS: Glucose,Pleural Fluid 93 MG/DL; LDH,Pleural Fluid 300 U/L; Total Protein,Pleural Fluid 4.2 G/DL
[2021-10-17 13:02] LABS: Lymphocytes,Pleural Fluid 28 %; Monocytes,Pleural Fluid 16 %; Neutrophils,Pleural Fluid 56 %; RBC,Pleural Fluid 19030 T/CUMM
[2021-10-17] MEDS: ACETAMINOPHEN 325 MG TABLET PO PRN (18:25)
[2021-10-17] MEDS: DEXTROSE 5% 1,000 ML IV SCH (18:26)
[2021-10-17] MEDS: INSULIN GLARGINE 100 UNIT/ML SUBCUT SCH (20:26)
[2021-10-17] MEDS: FAMOTIDINE 20 MG/2 ML VIAL IV SCH (20:35)
[2021-10-18] MEDS: INSULIN REGULAR 100 UNIT/ML SUBCUT SCH ×4 (00:34→17:11)
[2021-10-18] MEDS: LEVALBUTEROL 1.25 MG/3 ML NEB RESP TX SCH ×4 (00:51→19:13)
[2021-10-18] MEDS: MEROPENEM 500 MG in SODIUM CHLORIDE 0.9% 100 ML IV SCH ×3 (01:33→17:31)
[2021-10-18] MEDS: metroNIDAZOLE INJ 500 MG/100 ML PREMIX IV SCH ×3 (03:49→20:36)
[2021-10-18 05:44] LABS: Calcium 8.3 MG/DL (8.5-10.1); Osmolality,Calculated 290.8 MOS/KG (273-304)
[2021-10-18] MEDS: DEXTROSE 5% 1,000 ML IV SCH (05:46)
[2021-10-18 05:52] LABS: Basophils # 0.1 10*3/uL (0.0-0.2); Basophils % 0.5 % (0.0-0.8); Eosinophils # 0.2 10*3/uL (0.0-0.87); Eosinophils % 1.1 % (0.00-10.9); Hematocrit 28.3 VOL% (35.7-47.0); Hemoglobin 8.1 GM/DL (12.0-16.0); Immature Granulocytes % 1.2 %; Lymphocytes % 5.6 % (21.3-54.2); Mean Corpuscular HGB Conc 28.6 GM/DL (32-36); Mean Corpuscular Volume 96.9 FL (87-102); Mean Platelet Volume 10.7 FL (9.6-12.0); Monocytes # 0.9 10*3/uL (0.11-0.8); Monocytes % 5.2 % (1.7-12.7); Neutrophils % 86.4 % (38.7-73.9); Platelet Count 281 T/CUMM (130-400); Red Blood Count 2.92 MC/CUMM (3.8-5.5); Red Cell Distribution Width 16.6 % (9.3-17.3); White Blood Count 16.9 T/CUMM (4-12)
[2021-10-18 05:56] LABS: Band Neutrophils 1 % (0-10); Hypochromia Slight; Lymphocytes 5 % (20-55); Microcytosis Slight; Platelet Estimate Adequate; Total Cells Counted 100
[2021-10-18] MEDS ORDERED: MAGNESIUM SULF RIDER 2 GM/50 ML PREMIX IV ONE (07:47)
[2021-10-18] MEDS: MULTIVITAMIN (CENTRUM) TABLET PO SCH (09:17)
[2021-10-18] MEDS: DOCUSATE SODIUM 100 MG CAPSULE PO SCH ×2 (09:17→20:35)
[2021-10-18] MEDS: OXYBUTYNIN XL 15 MG TABLET PO SCH (09:17)
[2021-10-18] MEDS: ASCORBIC ACID 500 MG TABLET PO SCH (09:17)
[2021-10-18] MEDS: CHOLECALCIFEROL 5,000 UNIT TABLET PO SCH (09:17)
[2021-10-18] MEDS: MAGNESIUM OXIDE 400 MG TABLET PO SCH ×2 (09:17→20:35)
[2021-10-18] MEDS: SIMETHICONE CHEW 125 MG TABLET PO SCH ×4 (09:17→20:35)
[2021-10-18] MEDS: POLYETHYLENE GLYCOL POWDER 17 GM PACK PO SCH (09:19)
[2021-10-18] MEDS: MENTHOL/ZINC OXIDE OINT 71 GM JAR TOP SCH ×2 (09:19→20:36)
[2021-10-18] MEDS: MEGESTROL 40 MG TABLET PO SCH ×2 (09:20→20:35)
[2021-10-18] MEDS: INSULIN GLARGINE 100 UNIT/ML SUBCUT SCH (20:36)
[2021-10-18] MEDS: FAMOTIDINE 20 MG/2 ML VIAL IV SCH (20:36)
[2021-10-18] MEDS: ACETAMINOPHEN 325 MG TABLET PO PRN (21:36)
[2021-10-19] MEDS: INSULIN REGULAR 100 UNIT/ML SUBCUT SCH ×3 (00:08→12:17)
[2021-10-19] MEDS: LEVALBUTEROL 1.25 MG/3 ML NEB RESP TX SCH ×3 (00:30→13:30)
[2021-10-19] MEDS: MEROPENEM 500 MG in SODIUM CHLORIDE 0.9% 100 ML IV SCH ×2 (02:00→08:37)
[2021-10-19] MEDS: metroNIDAZOLE INJ 500 MG/100 ML PREMIX IV SCH ×2 (04:34→11:50)
[2021-10-19 06:08] LABS: Basophils # 0.1 10*3/uL (0.0-0.2); Basophils % 0.3 % (0.0-0.8); Eosinophils # 0.2 10*3/uL (0.0-0.87); Eosinophils % 1.1 % (0.00-10.9); Hematocrit 28.4 VOL% (35.7-47.0); Hemoglobin 8.4 GM/DL (12.0-16.0); Immature Granulocytes % 1.4 %; Immature Granulocytes Absolute 0.27 #; Lymphocytes % 5.1 % (21.3-54.2); Mean Corpuscular HGB Conc 29.6 GM/DL (32-36); Mean Corpuscular Volume 96.3 FL (87-102); Mean Platelet Volume 10.9 FL (9.6-12.0); Neutrophils % 87.1 % (38.7-73.9); Platelet Count 329 T/CUMM (130-400); Red Blood Count 2.95 MC/CUMM (3.8-5.5); Red Cell Distribution Width 16.5 % (9.3-17.3); White Blood Count 19.9 T/CUMM (4-12)
[2021-10-19 06:26] LABS: Calcium 8.5 MG/DL (8.5-10.1); Osmolality,Calculated 288.1 MOS/KG (273-304)
[2021-10-19 06:27] LABS: Phosphorous 3.5 MG/DL (2.5-4.9)
[2021-10-19 06:39] LABS: Eosinophils 2 % (0-10); Hypochromia Slight; Lymphocytes 2 % (20-55); Microcytosis Slight; Platelet Estimate Adequate; Total Cells Counted 100
[2021-10-19] MEDS: OXYBUTYNIN XL 15 MG TABLET PO SCH (08:36)
[2021-10-19] MEDS: CHOLECALCIFEROL 5,000 UNIT TABLET PO SCH (08:36)
[2021-10-19] MEDS: POLYETHYLENE GLYCOL POWDER 17 GM PACK PO SCH (08:36)
[2021-10-19] MEDS: MULTIVITAMIN (CENTRUM) TABLET PO SCH (08:37)
[2021-10-19] MEDS: MENTHOL/ZINC OXIDE OINT 71 GM JAR TOP SCH (08:37)
[2021-10-19] MEDS: SIMETHICONE CHEW 125 MG TABLET PO SCH ×2 (08:37→12:17)
[2021-10-19] MEDS: ASCORBIC ACID 500 MG TABLET PO SCH (08:37)
[2021-10-19] MEDS: MAGNESIUM OXIDE 400 MG TABLET PO SCH (08:37)
[2021-10-19] MEDS: MEGESTROL 40 MG TABLET PO SCH (09:04)
[2021-10-19] MEDS: DOCUSATE SODIUM 100 MG CAPSULE PO SCH (09:04)
[2021-10-19 12:22] VITALS: BP 105/49
== END 2021-10-19 14:13 | DRG 698 ==
LOC: N.ED 12:30 → SUATTDRO 15:28 → N.CC 15:28 → N.TELEN 10-01 14:39
PROVIDERS: ADMIT Internal Medicine; ATTEND Emergency Medicine

== ENCOUNTER 2021-11-29 17:57 | Inpatient (IN) ==
[2021-11-29] MEDS ORDERED: SODIUM CHLORIDE 0.9% 1,000 ML IV STA ×2 (18:53→20:16)
[2021-11-29 19:16] LABS: Basophils # 0.1 10*3/uL (0.0-0.2); Basophils % 0.4 % (0.0-0.8); Eosinophils # 0.1 10*3/uL (0.0-0.87); Eosinophils % 0.5 % (0.00-10.9); Hematocrit 28.2 VOL% (35.7-47.0); Hemoglobin 8.9 GM/DL (12.0-16.0); Immature Granulocytes % 0.9 %; Immature Granulocytes Absolute 0.21 #; Lymphocytes # 1.1 10*3/uL (1.4-4.0); Lymphocytes % 4.4 % (21.3-54.2); Mean Corpuscular HGB Conc 31.6 GM/DL (32-36); Mean Corpuscular Volume 93.7 FL (87-102); Mean Platelet Volume 8.6 FL (9.6-12.0); Monocytes # 1.2 10*3/uL (0.11-0.8); Monocytes % 5.1 % (1.7-12.7); Neutrophils % 88.7 % (38.7-73.9); Platelet Count 423 T/CUMM (130-400); Red Blood Count 3.01 MC/CUMM (3.8-5.5); Red Cell Distribution Width 17.5 % (9.3-17.3); White Blood Count 24.4 T/CUMM (4-12)
[2021-11-29 19:34] LABS: Albumin 2.7 G/DL (3.4-5.0); Bilirubin,Total 0.4 MG/DL (0.20-1.00); Calcium 12.1 MG/DL (8.5-10.1); Osmolality,Calculated 279.5 MOS/KG (273-304); Potassium 3.8 MMOL/L (3.5-5.1); Total Protein 7.6 G/DL (6.4-8.2)
[2021-11-29 19:40] LABS: Ammonia < 10 UMOL/L (11-32); Lactic Acid 2.1 MMOL/L (0.4-2.0)
[2021-11-29 19:41] LABS: Eosinophils 1 % (0-10); Lymphocytes 8 % (20-55); Total Cells Counted 100
[2021-11-29 19:42] LABS: Platelet Estimate Increased; Polychromasia Slight; Thyroid Stimulating Hormone 0.771 uIU/ml (0.358-3.74)
[2021-11-29 19:43] LABS: Bilirubin,Urine Negative (Negative); Blood, Urine Small mg/dL (Negative); Glucose,Urine (UA) Negative (Negative); Ketones,Urine Negative (Negative); Nitrite,Urine Negative (Negative); Protein,Urine 100 mg/dL (Negative); RBC,Urine 5 /HPF (0-4); Squamous Epithelial Cell,Urine Occasional /HPF (0-10); Urine Appearance CLOUDY (Clear); Urine Color Yellow (Yellow); Urine Specific Gravity 1.005 (1.001-1.035); Urine Urobilinogen < 2.0 eU/dL (<2.0)
[2021-11-29 19:48] LABS: Barbiturates Screen,Urine Negative (Negative); Benzodiazepines Screen,Urine Negative (Negative); Cannabinoid Screen,Urine Negative (Negative); Opiate Screen,Urine Negative (Negative); Phencyclidine Screen,Urine Negative (Negative)
[2021-11-29] MEDS ORDERED: cefTRIAXone 1,000 MG in SODIUM CHLORIDE 0.9% 100 ML IV STA (20:16)
[2021-11-29] MEDS ORDERED: MAGNESIUM SULF RIDER 2 GM/50 ML PREMIX IV STA (20:16)
[2021-11-29] MEDS ORDERED: GLUCAGON 1 MG VIAL IM PRN ×2 (21:42→23:50)
[2021-11-29] MEDS ORDERED: DEXTROSE 10% 250 ML BAG IV PRN ×2 (22:02→23:58)
[2021-11-30] MEDS: PIPERACILLIN/TAZOBACTAM 3,375 MG in SODIUM CHLORIDE 0.9% 100 ML IV SCH ×3 (00:01→18:09)
[2021-11-30] MEDS: SODIUM CHLORIDE 0.9% 1,000 ML IV SCH ×2 (00:02→12:08)
[2021-11-30] MEDS ORDERED: ALBUTEROL 2.5 MG/3 ML NEB RESP TX PRN (01:00)
[2021-11-30 05:03] LABS: Basophils # 0.1 10*3/uL (0.0-0.2); Basophils % 0.3 % (0.0-0.8); Eosinophils # 0.2 10*3/uL (0.0-0.87); Eosinophils % 0.9 % (0.00-10.9); Hematocrit 27.5 VOL% (35.7-47.0); Hemoglobin 8.6 GM/DL (12.0-16.0); Immature Granulocytes % 0.7 %; Immature Granulocytes Absolute 0.14 #; Lymphocytes % 5.2 % (21.3-54.2); Mean Corpuscular HGB Conc 31.3 GM/DL (32-36); Mean Corpuscular Volume 95.2 FL (87-102); Mean Platelet Volume 8.6 FL (9.6-12.0); Monocytes # 0.8 10*3/uL (0.11-0.8); Monocytes % 4.2 % (1.7-12.7); Neutrophils % 88.7 % (38.7-73.9); Platelet Count 407 T/CUMM (130-400); Red Blood Count 2.89 MC/CUMM (3.8-5.5); Red Cell Distribution Width 17.8 % (9.3-17.3); White Blood Count 18.9 T/CUMM (4-12)
[2021-11-30 05:20] LABS: Albumin 2.3 G/DL (3.4-5.0); Bilirubin,Total 0.5 MG/DL (0.20-1.00); Calcium 11.9 MG/DL (8.5-10.1); Osmolality,Calculated 284.1 MOS/KG (273-304); Potassium 4.1 MMOL/L (3.5-5.1); Total Protein 7.6 G/DL (6.4-8.2)
[2021-11-30] MEDS: AZELASTINE NASAL 137 MCG/SPRAY 30 ML BOTTLE BOTH NARES SCH ×2 (09:00→22:26)
[2021-11-30] MEDS ORDERED: ENOXAPARIN 30 MG/0.3 ML SYRINGE SUBCUT SCH (09:00)
[2021-11-30] MEDS: MAGNESIUM OXIDE 400 MG TABLET PO SCH ×2 (10:19→22:26)
[2021-11-30] MEDS: METOCLOPRAMIDE 5 MG TABLET PO SCH ×4 (10:19→22:26)
[2021-11-30] MEDS: ACETAMINOPHEN 325 MG TABLET PO PRN ×2 (10:20→15:41)
[2021-11-30] MEDS: ASCORBIC ACID 500 MG TABLET PO SCH (10:20)
[2021-11-30] MEDS: DOCUSATE SODIUM 100 MG CAPSULE PO SCH (10:20)
[2021-11-30] MEDS: PANTOPRAZOLE 40 MG TABLET PO SCH (10:21)
[2021-11-30] MEDS: OXYBUTYNIN XL 15 MG TABLET PO SCH (10:26)
[2021-11-30] MEDS: INSULIN REGULAR 100 UNIT/ML SUBCUT SCH ×4 (11:39→22:26)
[2021-11-30] MEDS: DEXTROSE 5% NACL 0.45% 1,000 ML IV SCH (12:12)
[2021-12-01] MEDS ORDERED: traMADol 50 MG TABLET PO PRN (03:32)
[2021-12-01] MEDS: PIPERACILLIN/TAZOBACTAM 3,375 MG in SODIUM CHLORIDE 0.9% 100 ML IV SCH ×3 (03:46→18:56)
[2021-12-01] MEDS: ONDANSETRON 4 MG/2 ML VIAL IV PRN ×3 (03:52→20:01)
[2021-12-01 05:43] LABS: Basophils # 0.1 10*3/uL (0.0-0.2); Basophils % 0.3 % (0.0-0.8); Eosinophils % 0.1 % (0.00-10.9); Hematocrit 25.6 VOL% (35.7-47.0); Immature Granulocytes % 0.5 %; Immature Granulocytes Absolute 0.07 #; Lymphocytes # 0.7 10*3/uL (1.4-4.0); Lymphocytes % 4.5 % (21.3-54.2); Mean Corpuscular HGB Conc 31.3 GM/DL (32-36); Mean Corpuscular Volume 94.8 FL (87-102); Mean Platelet Volume 8.7 FL (9.6-12.0); Monocytes # 0.6 10*3/uL (0.11-0.8); Monocytes % 3.9 % (1.7-12.7); Neutrophils % 90.7 % (38.7-73.9); Platelet Count 362 T/CUMM (130-400); White Blood Count 15.4 T/CUMM (4-12)
[2021-12-01 06:09] LABS: Band Neutrophils 1 % (0-10); Hypochromia Slight; Lymphocytes 7 % (20-55); Total Cells Counted 100
[2021-12-01 06:10] LABS: Microcytosis 1+
[2021-12-01 06:11] LABS: Calcium 10.5 MG/DL (8.5-10.1); Osmolality,Calculated 284.3 MOS/KG (273-304); Potassium 3.9 MMOL/L (3.5-5.1)
[2021-12-01] MEDS: INSULIN REGULAR 100 UNIT/ML SUBCUT SCH ×4 (07:56→22:54)
[2021-12-01] MEDS: SODIUM CHLORIDE 0.9% 1,000 ML IV SCH ×2 (10:12→10:13)
[2021-12-01] MEDS: ENOXAPARIN 100 MG/ML SYRINGE SUBCUT SCH (10:35)
[2021-12-01] MEDS: METOCLOPRAMIDE 5 MG TABLET PO SCH ×2 (11:27)
[2021-12-01] MEDS: OXYBUTYNIN XL 15 MG TABLET PO SCH (11:29)
[2021-12-01] MEDS: DOCUSATE SODIUM 100 MG CAPSULE PO SCH (15:17)
[2021-12-01] MEDS: PANTOPRAZOLE 40 MG TABLET PO SCH (15:18)
[2021-12-01] MEDS: MAGNESIUM OXIDE 400 MG TABLET PO SCH (15:18)
[2021-12-01] MEDS: ASCORBIC ACID 500 MG TABLET PO SCH (15:18)
[2021-12-01] MEDS: PANTOPRAZOLE 40 MG VIAL IV SCH (18:53)
[2021-12-01] MEDS: DEXTROSE 5% NACL 0.45% 1,000 ML IV SCH (18:57)
[2021-12-01] MEDS: AZELASTINE NASAL 137 MCG/SPRAY 30 ML BOTTLE BOTH NARES SCH (22:53)
[2021-12-02] MEDS: PIPERACILLIN/TAZOBACTAM 3,375 MG in SODIUM CHLORIDE 0.9% 100 ML IV SCH ×3 (01:01→18:10)
[2021-12-02] MEDS: ONDANSETRON 4 MG/2 ML VIAL IV PRN ×3 (03:54→22:17)
[2021-12-02 05:50] LABS: Basophils # 0.1 10*3/uL (0.0-0.2); Basophils % 0.4 % (0.0-0.8); Eosinophils # 0.1 10*3/uL (0.0-0.87); Eosinophils % 0.6 % (0.00-10.9); Hematocrit 24.8 VOL% (35.7-47.0); Hemoglobin 7.9 GM/DL (12.0-16.0); Immature Granulocytes % 0.7 %; Immature Granulocytes Absolute 0.11 #; Lymphocytes # 1.1 10*3/uL (1.4-4.0); Mean Corpuscular HGB Conc 31.9 GM/DL (32-36); Mean Corpuscular Volume 94.7 FL (87-102); Mean Platelet Volume 8.9 FL (9.6-12.0); Monocytes # 1.1 10*3/uL (0.11-0.8); Monocytes % 6.6 % (1.7-12.7); Neutrophils % 84.7 % (38.7-73.9); Platelet Count 378 T/CUMM (130-400); Red Blood Count 2.62 MC/CUMM (3.8-5.5); Red Cell Distribution Width 17.9 % (9.3-17.3); White Blood Count 16.1 T/CUMM (4-12)
[2021-12-02 05:54] LABS: Calcium 9.8 MG/DL (8.5-10.1); Osmolality,Calculated 289.8 MOS/KG (273-304); Potassium 3.7 MMOL/L (3.5-5.1)
[2021-12-02] MEDS: PANTOPRAZOLE 40 MG VIAL IV SCH (06:00)
[2021-12-02] MEDS: INSULIN REGULAR 100 UNIT/ML SUBCUT SCH ×4 (07:56→21:09)
[2021-12-02] MEDS: AZELASTINE NASAL 137 MCG/SPRAY 30 ML BOTTLE BOTH NARES SCH ×3 (07:56→21:10)
[2021-12-02] MEDS: ENOXAPARIN 100 MG/ML SYRINGE SUBCUT SCH (09:06)
[2021-12-02] MEDS: DEXTROSE 5% NACL 0.45% 1,000 ML IV SCH (17:34)
[2021-12-02] MEDS: METOCLOPRAMIDE 10 MG/2 ML VIAL IV SCH (18:10)
[2021-12-03] MEDS: METOCLOPRAMIDE 10 MG/2 ML VIAL IV SCH ×4 (00:16→18:17)
[2021-12-03] MEDS: PIPERACILLIN/TAZOBACTAM 3,375 MG in SODIUM CHLORIDE 0.9% 100 ML IV SCH ×3 (00:18→18:15)
[2021-12-03] MEDS: PANTOPRAZOLE 40 MG VIAL IV SCH (06:28)
[2021-12-03 07:01] LABS: Basophils # 0.1 10*3/uL (0.0-0.2); Basophils % 0.4 % (0.0-0.8); Eosinophils # 0.2 10*3/uL (0.0-0.87); Eosinophils % 1.7 % (0.00-10.9); Hematocrit 23.6 VOL% (35.7-47.0); Hemoglobin 7.4 GM/DL (12.0-16.0); Immature Granulocytes % 1.2 %; Immature Granulocytes Absolute 0.17 #; Lymphocytes # 1.6 10*3/uL (1.4-4.0); Lymphocytes % 11.4 % (21.3-54.2); Mean Corpuscular HGB Conc 31.4 GM/DL (32-36); Mean Corpuscular Volume 95.5 FL (87-102); Mean Platelet Volume 8.8 FL (9.6-12.0); Monocytes # 1.2 10*3/uL (0.11-0.8); Monocytes % 9.1 % (1.7-12.7); NRBC # 0.03 10*3/uL; Neutrophils % 76.2 % (38.7-73.9); Platelet Count 374 T/CUMM (130-400); Red Blood Count 2.47 MC/CUMM (3.8-5.5); White Blood Count 13.7 T/CUMM (4-12)
[2021-12-03 07:11] LABS: Calcium 9.2 MG/DL (8.5-10.1); Potassium 3.6 MMOL/L (3.5-5.1)
[2021-12-03] MEDS: INSULIN REGULAR 100 UNIT/ML SUBCUT SCH ×4 (07:35→22:13)
[2021-12-03] MEDS: ENOXAPARIN 100 MG/ML SYRINGE SUBCUT SCH (09:25)
[2021-12-03] MEDS: AZELASTINE NASAL 137 MCG/SPRAY 30 ML BOTTLE BOTH NARES SCH ×2 (09:26→22:13)
[2021-12-04] MEDS: METOCLOPRAMIDE 10 MG/2 ML VIAL IV SCH ×2 (00:55→07:21)
[2021-12-04] MEDS: PIPERACILLIN/TAZOBACTAM 3,375 MG in SODIUM CHLORIDE 0.9% 100 ML IV SCH ×2 (00:56→10:13)
[2021-12-04 05:27] LABS: Basophils # 0.1 10*3/uL (0.0-0.2); Basophils % 0.4 % (0.0-0.8); Eosinophils # 0.3 10*3/uL (0.0-0.87); Eosinophils % 2.5 % (0.00-10.9); Hematocrit 24.7 VOL% (35.7-47.0); Hemoglobin 7.6 GM/DL (12.0-16.0); Immature Granulocytes % 0.5 %; Immature Granulocytes Absolute 0.07 #; Lymphocytes # 1.6 10*3/uL (1.4-4.0); Lymphocytes % 11.9 % (21.3-54.2); Mean Corpuscular HGB Conc 30.8 GM/DL (32-36); Mean Corpuscular Volume 95.7 FL (87-102); Mean Platelet Volume 8.9 FL (9.6-12.0); Monocytes # 1.4 10*3/uL (0.11-0.8); Monocytes % 10.3 % (1.7-12.7); Neutrophils % 74.4 % (38.7-73.9); Platelet Count 402 T/CUMM (130-400); Red Blood Count 2.58 MC/CUMM (3.8-5.5); Red Cell Distribution Width 18.4 % (9.3-17.3); White Blood Count 13.6 T/CUMM (4-12)
[2021-12-04 05:51] LABS: Calcium 9.4 MG/DL (8.5-10.1); Osmolality,Calculated 287.8 MOS/KG (273-304); Potassium 3.4 MMOL/L (3.5-5.1)
[2021-12-04] MEDS: PANTOPRAZOLE 40 MG VIAL IV SCH (07:21)
[2021-12-04] MEDS: ENOXAPARIN 100 MG/ML SYRINGE SUBCUT SCH (10:14)
[2021-12-04] MEDS: AZELASTINE NASAL 137 MCG/SPRAY 30 ML BOTTLE BOTH NARES SCH ×2 (10:14→21:29)
[2021-12-04] MEDS: INSULIN REGULAR 100 UNIT/ML SUBCUT SCH ×4 (10:15→21:28)
[2021-12-04] MEDS: METOCLOPRAMIDE 10 MG/10 ML UDCUP PO SCH ×3 (14:01→21:27)
[2021-12-04] MEDS ORDERED: POTASSIUM BICARB EFFERVESCENT 20 MEQ TAB.EFF PO ONE (17:00)
[2021-12-04] MEDS: DEXTROSE 5% NACL 0.45% 1,000 ML IV SCH ×2 (17:45→17:46)
[2021-12-04] MEDS ORDERED: ENOXAPARIN 100 MG/ML SYRINGE SUBCUT SCH (21:00)
[2021-12-05 05:08] LABS: Basophils # 0.1 10*3/uL (0.0-0.2); Basophils % 0.4 % (0.0-0.8); Eosinophils # 0.3 10*3/uL (0.0-0.87); Eosinophils % 1.9 % (0.00-10.9); Hematocrit 25.1 VOL% (35.7-47.0); Hemoglobin 7.9 GM/DL (12.0-16.0); Immature Granulocytes % 0.9 %; Immature Granulocytes Absolute 0.15 #; Lymphocytes # 1.5 10*3/uL (1.4-4.0); Lymphocytes % 9.3 % (21.3-54.2); Mean Corpuscular HGB Conc 31.5 GM/DL (32-36); Mean Corpuscular Volume 95.4 FL (87-102); Mean Platelet Volume 8.8 FL (9.6-12.0); Monocytes # 1.3 10*3/uL (0.11-0.8); Monocytes % 8.2 % (1.7-12.7); Neutrophils % 79.3 % (38.7-73.9); Platelet Count 421 T/CUMM (130-400); Red Blood Count 2.63 MC/CUMM (3.8-5.5); Red Cell Distribution Width 18.5 % (9.3-17.3)
[2021-12-05 05:29] LABS: Calcium 9.4 MG/DL (8.5-10.1); Osmolality,Calculated 290.7 MOS/KG (273-304); Potassium 3.5 MMOL/L (3.5-5.1)
[2021-12-05] MEDS: PANTOPRAZOLE 40 MG VIAL IV SCH (05:31)
[2021-12-05] MEDS: INSULIN REGULAR 100 UNIT/ML SUBCUT SCH ×2 (07:33→11:00)
[2021-12-05] MEDS ORDERED: RIVAROXABAN 20 MG TABLET PO SCH (08:00)
[2021-12-05] MEDS: METOCLOPRAMIDE 10 MG/10 ML UDCUP PO SCH ×2 (08:54→11:00)
[2021-12-05] MEDS: AZELASTINE NASAL 137 MCG/SPRAY 30 ML BOTTLE BOTH NARES SCH (08:54)
[2021-12-05] MEDS ORDERED: MAGNESIUM CHLORIDE 64 MG TABLET PO SCH (09:00)
[2021-12-05] MEDS: ONDANSETRON 4 MG/2 ML VIAL IV PRN (09:04)
[2021-12-05] MEDS ORDERED: ONDANSETRON ODT 4 MG TABLET PO PRN (10:53)
[2021-12-05] MEDS: DEXTROSE 5% NACL 0.45% 1,000 ML IV SCH (11:00)
[2021-12-05 12:15] VITALS: BP 106/69
[2021-12-05] MEDS ORDERED: RIVAROXABAN 15 MG TABLET PO SCH (17:00)
[2021-12-06] MEDS ORDERED: RIVAROXABAN 20 MG TABLET PO SCH (08:00)
[2021-12-06] MEDS ORDERED: LEVOFLOXACIN 500 MG TABLET PO SCH (09:00)
== END 2021-12-05 13:50 | disposition home health service (06) | DRG 640 ==
LOC: N.ED 17:57 → N.5E 21:42
PROVIDERS: ADMIT Hospitalist; ATTEND Hospitalist

== ENCOUNTER 2022-02-10 12:54 | Inpatient (IN) ==
[2022-02-10] MEDS ORDERED: SODIUM CHLORIDE 0.9% 1,000 ML IV STA ×2 (14:57→16:32)
[2022-02-10] MEDS ORDERED: MORPHINE 2 MG/1 ML SYRINGE IV ONE (14:57)
[2022-02-10] MEDS ORDERED: ONDANSETRON 4 MG/2 ML VIAL IV ONE (14:57)
[2022-02-10 15:10] LABS: Basophils # 0.1 10*3/uL (0.0-0.2); Basophils % 0.2 % (0.0-0.8); Hematocrit 30.8 VOL% (35.7-47.0); Hemoglobin 9.7 GM/DL (12.0-16.0); Immature Granulocytes Absolute 0.28 #; Lymphocytes # 1.2 10*3/uL (1.4-4.0); Lymphocytes % 4.4 % (21.3-54.2); Mean Corpuscular HGB Conc 31.5 GM/DL (32-36); Mean Corpuscular Volume 93.6 FL (87-102); Mean Platelet Volume 8.2 FL (9.6-12.0); Monocytes # 1.3 10*3/uL (0.11-0.8); Monocytes % 4.6 % (1.7-12.7); Neutrophils % 89.8 % (38.7-73.9); Platelet Count 510 T/CUMM (130-400); Red Blood Count 3.29 MC/CUMM (3.8-5.5); Red Cell Distribution Width 14.4 % (9.3-17.3); White Blood Count 28.4 T/CUMM (4-12)
[2022-02-10 15:20] LABS: PT Patient Result 11.4 SECS (10.1-12.1)
[2022-02-10 15:32] LABS: Albumin 2.4 G/DL (3.4-5.0); Bilirubin,Total 0.4 MG/DL (0.20-1.00); Calcium 9.4 MG/DL (8.5-10.1); Osmolality,Calculated 270.4 MOS/KG (273-304); Potassium 5.1 MMOL/L (3.5-5.1); Total Protein 7.2 G/DL (6.4-8.2)
[2022-02-10 16:12] LABS: Lymphocytes 6 % (20-55); Platelet Estimate Increased
[2022-02-10 16:13] LABS: Total Cells Counted 100
[2022-02-10] MEDS ORDERED: AMPICILLIN/SULBACTAM 3,000 MG in SODIUM CHLORIDE 0.9% 100 ML IV SCH (16:30)
[2022-02-10] MEDS ORDERED: ONDANSETRON 4 MG/2 ML VIAL IV PRN (16:55)
[2022-02-10] MEDS: PIPERACILLIN/TAZOBACTAM 3,375 MG in SODIUM CHLORIDE 0.9% 100 ML IV SCH (17:16)
[2022-02-10] MEDS ORDERED: SODIUM CHLORIDE 0.9% 2,000 ML IV STA (17:16)
[2022-02-10] MEDS ORDERED: GLUCAGON 1 MG VIAL IM PRN (17:19)
[2022-02-10] MEDS ORDERED: DEXTROSE 10% 250 ML BAG IV PRN (17:19)
[2022-02-10 17:44] LABS: Thyroid Stimulating Hormone 1.26 uIU/ml (0.358-3.74)
[2022-02-10] MEDS: INSULIN LISPRO 100 UNIT/ML SUBCUT SCH (18:46)
[2022-02-10] MEDS: LACTATED RINGERS 1,000 ML IV SCH (20:13)
[2022-02-10] MEDS: LINEZOLID INJ 600 MG/300 ML PREMIX IV SCH (20:14)
[2022-02-10] MEDS: HEPARIN 5,000 UNIT/1 ML VIAL SUBCUT SCH (21:36)
[2022-02-10] MEDS: PANTOPRAZOLE 40 MG VIAL IV SCH (21:37)
[2022-02-11] MEDS: PIPERACILLIN/TAZOBACTAM 3,375 MG in SODIUM CHLORIDE 0.9% 100 ML IV SCH ×3 (00:05→17:16)
[2022-02-11] MEDS: INSULIN LISPRO 100 UNIT/ML SUBCUT SCH ×4 (01:05→18:44)
[2022-02-11] MEDS: LACTATED RINGERS 1,000 ML IV SCH (04:28)
[2022-02-11 04:54] LABS: Basophils # 0.1 10*3/uL (0.0-0.2); Basophils % 0.3 % (0.0-0.8); Eosinophils % 0.2 % (0.00-10.9); Hematocrit 26.4 VOL% (35.7-47.0); Hemoglobin 8.1 GM/DL (12.0-16.0); Immature Granulocytes % 0.9 %; Immature Granulocytes Absolute 0.21 #; Lymphocytes # 1.3 10*3/uL (1.4-4.0); Lymphocytes % 5.5 % (21.3-54.2); Mean Corpuscular HGB Conc 30.7 GM/DL (32-36); Mean Corpuscular Volume 94.3 FL (87-102); Mean Platelet Volume 8.7 FL (9.6-12.0); Monocytes # 1.5 10*3/uL (0.11-0.8); Monocytes % 6.3 % (1.7-12.7); Neutrophils % 86.8 % (38.7-73.9); Platelet Count 475 T/CUMM (130-400); Red Cell Distribution Width 14.3 % (9.3-17.3); White Blood Count 23.6 T/CUMM (4-12)
[2022-02-11 05:08] LABS: Osmolality,Calculated 271.1 MOS/KG (273-304); Potassium 4.6 MMOL/L (3.5-5.1)
[2022-02-11 05:18] LABS: Eosinophils 1 % (0-10); Hypochromia Slight; Lymphocytes 2 % (20-55); Microcytosis Slight; Platelet Estimate Adequate; Total Cells Counted 100
[2022-02-11] MEDS: LINEZOLID INJ 600 MG/300 ML PREMIX IV SCH ×2 (05:30→17:59)
[2022-02-11] MEDS: HEPARIN 5,000 UNIT/1 ML VIAL SUBCUT SCH ×2 (05:30→14:48)
[2022-02-11] MEDS ORDERED: MAGNESIUM SULF RIDER 2 GM/50 ML PREMIX IV ONE (07:23)
[2022-02-11] MEDS: PANTOPRAZOLE 40 MG VIAL IV SCH ×2 (09:12→21:08)
[2022-02-11] MEDS: DEXTROSE 5% NACL 0.45% 1,000 ML IV SCH (12:37)
[2022-02-11 17:04] LABS: Hematocrit 27.4 VOL% (35.7-47.0); Hemoglobin 8.5 GM/DL (12.0-16.0)
[2022-02-11 19:28] LABS: Urine Appearance Slightly Cloudy (Clear); Urine Color Yellow (Yellow)
[2022-02-11 19:29] LABS: Glucose,Urine (UA) Negative (Negative); Ketones,Urine Negative (Negative); Protein,Urine Trace mg/dL (Negative); Urine pH 5.5 (4.5-8.0)
[2022-02-11 19:30] LABS: Bilirubin,Urine Negative (Negative); Blood, Urine Moderate mg/dL (Negative); Nitrite,Urine Negative (Negative); Urine Urobilinogen 0.2 eU/dL (<2.0)
[2022-02-11 19:33] LABS: Bacteria,Urine Many /HPF (Few); Mucus,Urine Occasional /LPF (Occasional); RBC,Urine 15-20 /HPF (0-4)
[2022-02-11 20:39] LABS: Hematocrit 27.9 VOL% (35.7-47.0); Hemoglobin 8.8 GM/DL (12.0-16.0)
[2022-02-11] MEDS: MORPHINE 2 MG/1 ML SYRINGE IV PRN (21:08)
[2022-02-12] MEDS: INSULIN LISPRO 100 UNIT/ML SUBCUT SCH ×4 (00:45→18:03)
[2022-02-12 01:15] LABS: Hematocrit 29.6 VOL% (35.7-47.0); Hemoglobin 9.1 GM/DL (12.0-16.0)
[2022-02-12] MEDS: PIPERACILLIN/TAZOBACTAM 3,375 MG in SODIUM CHLORIDE 0.9% 100 ML IV SCH ×3 (01:50→17:10)
[2022-02-12] MEDS: DEXTROSE 5% NACL 0.45% 1,000 ML IV SCH ×2 (02:20→20:42)
[2022-02-12] MEDS: LINEZOLID INJ 600 MG/300 ML PREMIX IV SCH ×2 (05:12→17:07)
[2022-02-12 05:56] LABS: Basophils # 0.1 10*3/uL (0.0-0.2); Basophils % 0.3 % (0.0-0.8); Eosinophils # 0.1 10*3/uL (0.0-0.87); Eosinophils % 0.6 % (0.00-10.9); Hematocrit 26.6 VOL% (35.7-47.0); Hemoglobin 8.2 GM/DL (12.0-16.0); Immature Granulocytes % 0.8 %; Immature Granulocytes Absolute 0.18 #; Lymphocytes # 1.3 10*3/uL (1.4-4.0); Mean Corpuscular HGB Conc 30.8 GM/DL (32-36); Mean Corpuscular Volume 94.7 FL (87-102); Mean Platelet Volume 8.4 FL (9.6-12.0); Monocytes # 1.5 10*3/uL (0.11-0.8); Monocytes % 6.8 % (1.7-12.7); Neutrophils % 85.5 % (38.7-73.9); Platelet Count 458 T/CUMM (130-400); Red Blood Count 2.81 MC/CUMM (3.8-5.5); Red Cell Distribution Width 14.4 % (9.3-17.3); White Blood Count 21.4 T/CUMM (4-12)
[2022-02-12 06:10] LABS: Osmolality,Calculated 274.8 MOS/KG (273-304); Potassium 3.9 MMOL/L (3.5-5.1)
[2022-02-12 06:34] LABS: Eosinophils 1 % (0-10); Lymphocytes 6 % (20-55); Platelet Estimate Adequate; Total Cells Counted 100
[2022-02-12] MEDS: PANTOPRAZOLE 40 MG VIAL IV SCH ×2 (08:20→20:37)
[2022-02-12] MEDS ORDERED: DEXTROSE 5% NACL 0.45% 1,000 ML IV SCH (09:28)
[2022-02-12] MEDS: MORPHINE 2 MG/1 ML SYRINGE IV PRN (21:34)
[2022-02-13] MEDS: PIPERACILLIN/TAZOBACTAM 3,375 MG in SODIUM CHLORIDE 0.9% 100 ML IV SCH ×3 (00:42→17:51)
[2022-02-13] MEDS: INSULIN LISPRO 100 UNIT/ML SUBCUT SCH ×4 (01:08→17:04)
[2022-02-13] MEDS: LINEZOLID INJ 600 MG/300 ML PREMIX IV SCH ×2 (05:52→17:50)
[2022-02-13 06:10] LABS: Basophils # 0.1 10*3/uL (0.0-0.2); Basophils % 0.2 % (0.0-0.8); Eosinophils # 0.2 10*3/uL (0.0-0.87); Eosinophils % 0.9 % (0.00-10.9); Hematocrit 26.1 VOL% (35.7-47.0); Hemoglobin 8.1 GM/DL (12.0-16.0); Immature Granulocytes % 1.1 %; Immature Granulocytes Absolute 0.23 #; Lymphocytes # 1.4 10*3/uL (1.4-4.0); Lymphocytes % 6.6 % (21.3-54.2); Mean Corpuscular Volume 93.9 FL (87-102); Mean Platelet Volume 8.4 FL (9.6-12.0); Monocytes # 1.3 10*3/uL (0.11-0.8); Monocytes % 6.3 % (1.7-12.7); Neutrophils % 84.9 % (38.7-73.9); Platelet Count 464 T/CUMM (130-400); Red Blood Count 2.78 MC/CUMM (3.8-5.5); Red Cell Distribution Width 14.4 % (9.3-17.3)
[2022-02-13 06:36] LABS: Osmolality,Calculated 278.7 MOS/KG (273-304); Potassium 3.6 MMOL/L (3.5-5.1)
[2022-02-13 06:44] LABS: Hypochromia Slight; Lymphocytes 8 % (20-55); Microcytosis Slight; Platelet Estimate Increased; Target Cells Slight; Total Cells Counted 100
[2022-02-13] MEDS: PANTOPRAZOLE 40 MG VIAL IV SCH ×2 (10:11→21:25)
[2022-02-13] MEDS: METOCLOPRAMIDE 10 MG/2 ML VIAL IV SCH ×2 (12:15→17:50)
[2022-02-13] MEDS: DEXTROSE 5% NACL 0.45% 1,000 ML IV SCH (17:51)
[2022-02-13] MEDS: POLYETHYLENE GLYCOL POWDER 17 GM PACK NG SCH (21:25)
[2022-02-14] MEDS: INSULIN LISPRO 100 UNIT/ML SUBCUT SCH ×4 (00:25→18:24)
[2022-02-14] MEDS: METOCLOPRAMIDE 10 MG/2 ML VIAL IV SCH ×4 (00:26→18:25)
[2022-02-14] MEDS: PIPERACILLIN/TAZOBACTAM 3,375 MG in SODIUM CHLORIDE 0.9% 100 ML IV SCH ×2 (00:27→10:10)
[2022-02-14] MEDS: ACETAMINOPHEN 325 MG TABLET PO PRN ×2 (00:32→13:51)
[2022-02-14] MEDS: DEXTROSE 5% NACL 0.45% 1,000 ML IV SCH (04:22)
[2022-02-14] MEDS: LINEZOLID INJ 600 MG/300 ML PREMIX IV SCH (05:13)
[2022-02-14 05:16] LABS: Basophils # 0.1 10*3/uL (0.0-0.2); Basophils % 0.3 % (0.0-0.8); Eosinophils # 0.2 10*3/uL (0.0-0.87); Eosinophils % 1.2 % (0.00-10.9); Hematocrit 25.8 VOL% (35.7-47.0); Immature Granulocytes % 0.5 %; Lymphocytes # 1.8 10*3/uL (1.4-4.0); Lymphocytes % 9.9 % (21.3-54.2); Mean Corpuscular Volume 94.5 FL (87-102); Mean Platelet Volume 8.3 FL (9.6-12.0); Monocytes # 1.2 10*3/uL (0.11-0.8); Monocytes % 6.3 % (1.7-12.7); Neutrophils % 81.8 % (38.7-73.9); Platelet Count 443 T/CUMM (130-400); Red Blood Count 2.73 MC/CUMM (3.8-5.5); Red Cell Distribution Width 14.4 % (9.3-17.3); White Blood Count 18.5 T/CUMM (4-12)
[2022-02-14 05:40] LABS: Calcium 8.4 MG/DL (8.5-10.1); Osmolality,Calculated 279.4 MOS/KG (273-304); Potassium 3.8 MMOL/L (3.5-5.1)
[2022-02-14] MEDS: POLYETHYLENE GLYCOL POWDER 17 GM PACK NG SCH ×2 (10:10→22:03)
[2022-02-14] MEDS: PANTOPRAZOLE 40 MG VIAL IV SCH (10:10)
[2022-02-14] MEDS: METOCLOPRAMIDE 10 MG/10 ML UDCUP PO SCH (22:03)
[2022-02-15] MEDS: INSULIN LISPRO 100 UNIT/ML SUBCUT SCH ×3 (00:35→11:32)
[2022-02-15] MEDS: ACETAMINOPHEN 325 MG TABLET PO PRN ×2 (01:00→06:43)
[2022-02-15] MEDS: DEXTROSE 5% NACL 0.45% 1,000 ML IV SCH ×2 (04:31→04:32)
[2022-02-15] MEDS: PIPERACILLIN/TAZOBACTAM 3,375 MG in SODIUM CHLORIDE 0.9% 100 ML IV SCH ×3 (04:31→12:59)
[2022-02-15 05:21] LABS: Basophils # 0.1 10*3/uL (0.0-0.2); Basophils % 0.3 % (0.0-0.8); Eosinophils # 0.2 10*3/uL (0.0-0.87); Hematocrit 25.7 VOL% (35.7-47.0); Hemoglobin 7.9 GM/DL (12.0-16.0); Immature Granulocytes % 0.7 %; Immature Granulocytes Absolute 0.12 #; Lymphocytes # 1.5 10*3/uL (1.4-4.0); Lymphocytes % 7.9 % (21.3-54.2); Mean Corpuscular HGB Conc 30.7 GM/DL (32-36); Mean Corpuscular Volume 94.5 FL (87-102); Mean Platelet Volume 8.2 FL (9.6-12.0); Monocytes % 5.6 % (1.7-12.7); Neutrophils % 84.5 % (38.7-73.9); Platelet Count 439 T/CUMM (130-400); Red Blood Count 2.72 MC/CUMM (3.8-5.5); Red Cell Distribution Width 14.4 % (9.3-17.3); White Blood Count 18.3 T/CUMM (4-12)
[2022-02-15 05:52] LABS: Calcium 8.9 MG/DL (8.5-10.1); Osmolality,Calculated 278.4 MOS/KG (273-304); Potassium 3.6 MMOL/L (3.5-5.1)
[2022-02-15] MEDS ORDERED: PANTOPRAZOLE 40 MG TABLET PO SCH (07:00)
[2022-02-15] MEDS ORDERED: MAGNESIUM SULF RIDER 2 GM/50 ML PREMIX IV ONE (09:00)
[2022-02-15] MEDS: METOCLOPRAMIDE 10 MG/10 ML UDCUP PO SCH ×2 (09:16→12:37)
[2022-02-15] MEDS: POLYETHYLENE GLYCOL POWDER 17 GM PACK NG SCH (09:17)
[2022-02-15 12:43] VITALS: BP 109/59
== END 2022-02-15 13:57 | disposition home health service (06) | DRG 755 ==
LOC: N.ED 12:54 → SUATTDRO 16:55 → N.EDINP 16:55 → N.2E 19:08
PROVIDERS: ADMIT Internal Medicine; ATTEND Internal Medicine